=== PATIENT | male | born 1955 | race Caucasian/White ===

== ENCOUNTER 2016-09-11 16:05 | Inpatient (IN) | payer OTHER, MEDICARE ==
[~2016-09-11] VITALS: Ht 167.6 cm; Wt 151.5 kg
[~2016-09-11 16:05] MED LIST: CALCIUM CHLORIDE 10% SOLN 1 GRAM/10 ML SYR IV ONE; EPINEPHrine HCL (1:10,000) 1 MG/10 ML SYRINGE IV ONE; LACTATED RINGER'S 1000 ML INJ 3,000 ML IV ONE; PHENYLEPH/NS 1000 MCG/10 ML SYR IV ONE; SODIUM BICARBONATE 8.4% INJ 50 MEQ/50 ML SYR IV ONE; SODIUM CHLOR 0.9% 1000 ML INJ 3,000 ML IV ONE; VASOPRESSIN INJ 20 UNITS/ML VIAL IV ONE
[2016-09-11] MEDS ORDERED: PROPOFOL 1000 MG/100 ML INJ 100 ML ONE ×2 (16:18→19:12)
[2016-09-11 16:35] LABS: I-STAT SODIUM 139 MMOL/L (138-146)
[2016-09-11 16:36] LABS: BASOPHIL # 0.1 TH/MM3 (0-0.2); BASOPHIL % 0.7 % (0.0-2.0); EOSINOPHIL # 0.3 TH/MM3 (0-0.4); EOSINOPHIL % 1.9 % (0.0-4.0); HEMATOCRIT 46.1 % (39.0-51.0); HEMO FLAGS DIFF FINAL; LYMPH % 21.9 % (9.0-44.0); LYMPHOCYTE # 2.9 TH/MM3 (1.0-4.8); MEAN CELL VOLUME 95.1 FL (80.0-100.0); MEAN CORPUSCULAR HEMOGLOBIN 31.2 PG (27.0-34.0); MEAN CORPUSCULAR HGB CONC 32.8 % (32.0-36.0); MONO % 7.1 % (0.0-8.0); NEUT % 68.4 % (16.0-70.0); PLATELET COUNT 143 TH/MM3 (150-450); RED BLOOD COUNT 4.85 MIL/MM3 (4.50-5.90); WHITE BLOOD COUNT 13.2 TH/MM3 (4.0-11.0)
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
[2016-09-11 16:47] LABS: APTT (PATIENT) 23.5 SEC (24.3-30.1); INTERNATIONAL NORMALIZED RATIO 1.1 RATIO; PROTHROMBIN TIME - PATIENT 11.9 SEC (9.8-11.6)
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
[2016-09-11 17:02] VITALS: O2SAT 100
[2016-09-11 17:30] VITALS: O2SAT 100
[2016-09-11] MEDS ORDERED: TRANEXAMIC ACID INJ 1,300 MG in SODIUM CHLORIDE 0.9% INJ 100 ML IV ONE (17:45)
[2016-09-11 17:46] LABS: BLOOD GAS BASE EXCESS -7.7 mmol/L (-2-2); BLOOD GAS CARBOXYHEMOGLOBIN 4.8 % (0-4); BLOOD GAS HCO3 20 mmol/L (22-26); BLOOD GAS METHEMOGLOBIN 1.1 % (0-2); BLOOD GAS O2 HGB SATURATION 88 % (90-100); BLOOD GAS OXYGEN CONTENT 16.1 Vol % (12.0-20.0); BLOOD GAS PCO2 57 mmHg (38-42); BLOOD GAS PO2 84 mmHg (61-120); BLOOD GAS TOTAL HGB 12.9 G/DL (12.0-16.0); TEMP CORR TO 98.6
[2016-09-11 17:47] LABS: CRITICAL VALUE YES; OXYGEN DEVICE OR; VENT SETTINGS OR
[2016-09-11 18:00] LABS: BLOOD GAS BASE EXCESS -1.2 mmol/L (-2-2); BLOOD GAS CARBOXYHEMOGLOBIN 4.3 % (0-4); BLOOD GAS HCO3 26 mmol/L (22-26); BLOOD GAS O2 HGB SATURATION 93 % (90-100); BLOOD GAS OXYGEN CONTENT 16.9 Vol % (12.0-20.0); BLOOD GAS PCO2 71 mmHg (38-42); BLOOD GAS PO2 139 mmHg (61-120); BLOOD GAS TOTAL HGB 12.7 G/DL (12.0-16.0); TEMP CORR TO 98.6
[2016-09-11 18:04] LABS: OXYGEN DEVICE OR; STAT YES; ULNAR PULSE OR; VENT SETTINGS OR
[2016-09-11] MEDS ORDERED: ETOMIDATE 20 MG/10 ML VIAL ONE (18:13)
[2016-09-11] MEDS ORDERED: SUCCINYLCHOLINE CHLORIDE 200 MG/10 ML VIAL ONE (18:14)
[2016-09-11] MEDS ORDERED: ROCURONIUM INJ 50 MG/5 ML VIAL ONE (18:15)
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
[2016-09-11 18:54] LABS: AUTOMATED NEUTROPHIL # 8.7 TH/MM3 (1.8-7.7); BASOPHIL % 0.3 % (0.0-2.0); EOSINOPHIL # 0.1 TH/MM3 (0-0.4); EOSINOPHIL % 0.7 % (0.0-4.0); HEMATOCRIT 36.2 % (39.0-51.0); HEMO FLAGS DIFF FINAL; LYMPH % 6.4 % (9.0-44.0); LYMPHOCYTE # 0.7 TH/MM3 (1.0-4.8); MEAN CELL VOLUME 89.7 FL (80.0-100.0); MEAN CORPUSCULAR HEMOGLOBIN 29.7 PG (27.0-34.0); MEAN CORPUSCULAR HGB CONC 33.1 % (32.0-36.0); MONO % 7.9 % (0.0-8.0); NEUT % 84.7 % (16.0-70.0); PLATELET COUNT 136 TH/MM3 (150-450); RED BLOOD COUNT 4.03 MIL/MM3 (4.50-5.90); RED CELL DISTRIBUTION WIDTH 16.3 % (11.6-17.2); WHITE BLOOD COUNT 10.3 TH/MM3 (4.0-11.0)
[2016-09-11 19:06] LABS: INTERNATIONAL NORMALIZED RATIO 1.2 RATIO; PROTHROMBIN TIME - PATIENT 13.8 SEC (9.8-11.6)
[2016-09-11 19:27] LABS: BICARBONATE 26.4 MEQ/L (21.0-32.0); CALCIUM-PROTEIN CORRECTED 9.1 MG/DL (8.5-10.1); POTASSIUM 3.2 MEQ/L (3.5-5.1); TOTAL BILIRUBIN ADULT 0.6 MG/DL (0.2-1.0)
[2016-09-11 19:45] VITALS: BP 177/77; PULSE 126; PULSE 139; RESP 18; TEMP 99; O2SAT 100
[2016-09-11] MEDS ORDERED: SODIUM CHLORIDE 0.9% FLUSH 10 ML FLUSH IV FLUSH PRN (20:00)
[2016-09-11] MEDS ORDERED: CHLORHEXIDINE GLUCONATE 2 % 1 PACK (2 CLOTHS) TOP PRN (20:00)
[2016-09-11] MEDS ORDERED: PROPOFOL 1000 MG/100 ML INJ 100 ML IV SCH (20:00)
[2016-09-11] MEDS ORDERED: NOREPINEPHRINE-DEXTROSE DRIP 250 ML IV ONE (20:00)
[2016-09-11] MEDS ORDERED: MISCELLANEOUS NURSING INFORMATION XX SCH (20:00)
[2016-09-11] MEDS ORDERED: NOREPINEPHRINE 4 MG/4 ML AMP ONE (20:07)
[2016-09-11] MEDS ORDERED: PHENYLEPHRINE HCL 10 MG/ML VIAL ONE (20:13)
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
--- NOTE | 2016-09-11 20:41 | PD.PROCEDR ---
Procedure Note Procedure DATE: 09/11/16 CENTRAL LINE PLACEMENT: Left subclavian vein. INDICATION: Central venous access CONSENT Procedure performed emergently as patient in profound shock in need of sedation and resuscitation, in need of additional IV access. DESCRIPTION OF THE PROCEDURE The patient was placed in supine position, mild Trendelenburg. Full spine precautions were maintained. In-line cervical stabilization performed by medical assistant dermatology. The skin was cleansed with Chloraprep 4. Additional barrier precautions included large sterile drape, sterile gloves, sterile gown, face mask, and hat. 1 % lidocaine was used for local anesthesia. Under direct ultrasound guidance and on single attempt, the vein was accessed with an introducer needle. The guide wire was advanced and the tract was dilated. Using Seldinger technique a 7 Mongolian 20 cm antimicrobial coated triple-lumen catheter was advanced to a depth of 18 centimeters. The guide wire was removed. All ports had good return of dark venous blood and flushed easily with saline. The central line was secured with 2.0 silk. A sterile dressing with antibiotic disc was applied. ESTIMATED BLOOD LOSS: Minimal COMPLICATIONS: No apparent complications. STAT chest x-ray demonstrated satisfactory position without apparent complication. Malissa Bee MD Sep 11, 2016 20:41
[2016-09-11] MEDS ORDERED: POTASSIUM CHLORIDE INJ 40 MEQ in SODIUM CHLORID 0.9% 500 ML INJ 500 ML IV-CENTRAL ONE (20:45)
[2016-09-11] MEDS ORDERED: MISC INFORMATION XX ONE (20:45)
[2016-09-11] MEDS ORDERED: INSULIN REGULAR (IV INFUSION) 100 UNITS in SODIUM CHLORIDE 0.9% INJ 99 ML IV SCH (20:45)
[2016-09-11] MEDS ORDERED: TERBUTALINE INJ 1 MG/ML AMP SQ PRN (20:45)
[2016-09-11] MEDS ORDERED: CALCIUM CHLORIDE INJ 1 GM in SODIUM CHLORIDE 0.9% INJ 100 ML IV ONE (20:45)
[2016-09-11] MEDS ORDERED: DEXTROSE 50% IN WATER 50 ML VIAL(D50) IV PUSH PRN (20:45)
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
--- NOTE | 2016-09-11 20:49 | RADRPT ---
EXAM DATE/TIME: 09/11/2016 20:39 [facility] COMPARISON: No previous studies available for comparison. INDICATIONS : Central line placement and pneumothorax. MEDICAL HISTORY : None. SURGICAL HISTORY : None. ENCOUNTER: Subsequent ACUITY: 1 day PAIN SCORE: Non-responsive. LOCATION: Bilateral chest FINDINGS: Multiple left rib fractures present. Left chest tube in place. No measurable pneumothorax. There is l eft chest wall emphysema. Mild, patchy consolidation and/or contusion of the left lung. Right lung reasonably clear. No large p leural effusion/hemothorax seen. There is a nasogastric tube coursing into the stomach. There is an endotracheal tube with tip 4 cm ab ove the robin. CONCLUSION: 1. Lines and tubes as above, including a left chest tube. No measurable pneumothorax. 2. Mild patchy left lung consolidation. No significant hemothorax demonstrated. 3. Left chest wall emphysema. 4. Left rib fractures. Antonio Robbins MD on September 11, 2016 at 20:46 Board Certified Radiologist. This report was verified electronically.
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
[2016-09-11] MEDS ORDERED: SODIUM CHLOR 0.9% 250 ML INJ 250 ML IV ONE (21:30)
[2016-09-11 21:43] LABS: BLOOD GAS BASE EXCESS -0.1 mmol/L (-2-2); BLOOD GAS CARBOXYHEMOGLOBIN 2.2 % (0-4); BLOOD GAS HCO3 26 mmol/L (22-26); BLOOD GAS O2 HGB SATURATION 95 % (90-100); BLOOD GAS OXYGEN CONTENT 16.1 Vol % (12.0-20.0); BLOOD GAS PCO2 59 mmHg (38-42); BLOOD GAS PO2 104 mmHg (61-120); TEMP CORR TO 98.6
[2016-09-11 21:44] LABS: OXYGEN DEVICE VENTILATOR
[2016-09-11] MEDS ORDERED: PHENYLEPHRINE INJ 40 MG in DEXTROSE 5% IN WATE 500 ML INJ 496 ML IV SCH ×2 (21:45)
[2016-09-11 21:48] LABS: FIO2 75 %; STAT YES; VENT SETTINGS 500/18 5PEEP
[2016-09-11 21:53] LABS: BASOPHIL % 0.3 % (0.0-2.0); EOSINOPHIL % 0.1 % (0.0-4.0); HEMATOCRIT 36.4 % (39.0-51.0); HEMO FLAGS DIFF FINAL; LYMPH % 7.2 % (9.0-44.0); LYMPHOCYTE # 1.2 TH/MM3 (1.0-4.8); MEAN CELL VOLUME 88.2 FL (80.0-100.0); MONO % 9.9 % (0.0-8.0); NEUT % 82.5 % (16.0-70.0); PLATELET COUNT 124 TH/MM3 (150-450); RED BLOOD COUNT 4.12 MIL/MM3 (4.50-5.90); RED CELL DISTRIBUTION WIDTH 15.9 % (11.6-17.2)
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
[2016-09-11 22:08] VITALS: O2SAT 98
[2016-09-11 22:42] LABS: APTT (PATIENT) 29.9 SEC (24.3-30.1); INTERNATIONAL NORMALIZED RATIO 1.1 RATIO; PROTHROMBIN TIME - PATIENT 12.6 SEC (9.8-11.6)
[2016-09-11] MEDS: SODIUM CHLOR 0.9% 1000 ML INJ 1,000 ML IV SCH (22:55)
[2016-09-11] MEDS: FAMOTIDINE 20 MG/2 ML VIAL IV PUSH SCH (22:57)
[2016-09-11] MEDS: SODIUM CHLORIDE 0.9% FLUSH 10 ML FLUSH IV FLUSH SCH (22:57)
[2016-09-11] MEDS: PROPOFOL 1000 MG/100 ML INJ 100 ML IV SCH (22:58)
[2016-09-11] MEDS: fentaNYL DRIP 250 ML IV SCH (22:59)
[2016-09-12] VITALS (17 sets, daily range): BP systolic 118–151; BP diastolic 44–56; PULSE 101–112; RESP 18; TEMP 97.9–99.9; O2SAT 93–100
[2016-09-12] MEDS: PROPOFOL 1000 MG/100 ML INJ 100 ML IV SCH ×8 (00:18→22:37)
[2016-09-12] MEDS: NOREPINEPHRINE INJ 4 MG in SODIUM CHLOR 0.9% 250 ML INJ 246 ML IV SCH (01:05)
[2016-09-12] MEDS: PIPERACIL-TAZO 3.375 GM PREMIX 50 ML IV SCH ×5 (01:08→21:10)
[2016-09-12] MEDS: SODIUM CHLOR 0.9% 1000 ML INJ 1,000 ML IV SCH (02:45)
[2016-09-12] MEDS: CHLORHEXIDINE GLUCONATE 2 % 1 PACK (2 CLOTHS) TOP SCH (03:18)
[2016-09-12 04:31] LABS: PROTHROMBIN TIME - PATIENT 11.6 SEC (9.8-11.6)
[2016-09-12 04:33] LABS: AUTOMATED NEUTROPHIL # 7.4 TH/MM3 (1.8-7.7); BASOPHIL % 0.1 % (0.0-2.0); EOSINOPHIL % 0.1 % (0.0-4.0); HEMATOCRIT 27.9 % (39.0-51.0); HEMO FLAGS DIFF FINAL; LYMPH % 11.2 % (9.0-44.0); LYMPHOCYTE # 1.1 TH/MM3 (1.0-4.8); MEAN CELL VOLUME 86.7 FL (80.0-100.0); MEAN CORPUSCULAR HEMOGLOBIN 30.7 PG (27.0-34.0); MEAN CORPUSCULAR HGB CONC 35.4 % (32.0-36.0); MONO % 10.3 % (0.0-8.0); NEUT % 78.3 % (16.0-70.0); PLATELET COUNT 172 TH/MM3 (150-450); RED BLOOD COUNT 3.21 MIL/MM3 (4.50-5.90); RED CELL DISTRIBUTION WIDTH 16.1 % (11.6-17.2); WHITE BLOOD COUNT 9.5 TH/MM3 (4.0-11.0)
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
[2016-09-12] MEDS: fentaNYL DRIP 250 ML IV SCH ×2 (05:01→14:06)
[2016-09-12 06:01] LABS: BICARBONATE 29.7 MEQ/L (21.0-32.0); POTASSIUM 4.5 MEQ/L (3.5-5.1)
[2016-09-12] MEDS ORDERED: IOHEXOL 350 MG/ML 10 ML VIAL (for RAD DIAG) IV ONE (07:31)
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
[2016-09-12] MEDS ORDERED: POTASSIUM CHLORIDE 25 MEQ EFFERVESCENT TAB PO PRN (07:45)
[2016-09-12] MEDS ORDERED: POTASSIUM PHOSPHATE MONOBASIC 500 MG TAB PO PRN (07:45)
[2016-09-12] MEDS ORDERED: POTASSIUM PHOSPHATE MONOBASIC 500 MG TAB PO/TUBE PRN (07:45)
[2016-09-12] MEDS ORDERED: POTASSIUM PHOSPHATE INJ 30 MMOL in SODIUM CHLOR 0.9% 250 ML INJ 250 ML IV PRN (07:45)
[2016-09-12] MEDS ORDERED: MAGNESIUM SULFATE INJ 2 GM in SODIUM CHLORIDE 0.9% INJ 96 ML IV PRN (07:45)
[2016-09-12] MEDS ORDERED: POTASSIUM CHLOR 40 MEQ PREMIX 100 ML IV PRN (07:45)
[2016-09-12] MEDS ORDERED: MAGNESIUM SULFATE INJ 4 GM in SODIUM CHLORIDE 0.9% INJ 92 ML IV PRN (07:45)
[2016-09-12] MEDS ORDERED: SODIUM PHOSPHATE INJ 30 MMOL in SODIUM CHLOR 0.9% 250 ML INJ 240 ML IV PRN (07:45)
[2016-09-12] MEDS ORDERED: MAGNESIUM OXIDE 400 MG TAB PO PRN (07:45)
[2016-09-12] MEDS ORDERED: POTASSIUM CHLOR 20 MEQ PREMIX 100 ML IV PRN ×2 (07:45)
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
[2016-09-12] MEDS: SODIUM CHLORIDE 0.9% FLUSH 10 ML FLUSH IV FLUSH SCH ×2 (08:11→20:22)
[2016-09-12] MEDS: CHLORHEXIDINE 0.12% (ORAL KIT) 15 ML CUP MT SCH ×2 (08:11→20:22)
[2016-09-12] MEDS: FAMOTIDINE 20 MG/2 ML VIAL IV PUSH SCH ×2 (08:11→20:23)
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
[2016-09-12] MEDS ORDERED: RESP: ALBUTEROL 2.5 MG/3 ML NEB (PRN) NEB (08:45)
[2016-09-12] MEDS: RESP: ALBUTEROL 2.5 MG/IPRATROPIUM 0.5 MG NEB (SCH) NEB ×3 (09:27→21:11)
[2016-09-12] MEDS ORDERED: METH750T PO (09:45)
[2016-09-12] MEDS ORDERED: AMLO10TA2 PO (09:45)
[2016-09-12] MEDS ORDERED: PANT40TA3 PO (09:45)
[2016-09-12] MEDS ORDERED: METO25TA3 PO (09:45)
[2016-09-12] MEDS ORDERED: HYDR-3583 PO (09:45)
[2016-09-12] MEDS ORDERED: LURA40 PO (09:45)
[2016-09-12] MEDS ORDERED: ENAL20TA PO (09:45)
[2016-09-12] MEDS ORDERED: FURO20TA PO (09:45)
[2016-09-12 09:55] LABS: BLOOD, URINE NEG (NEG); GLUCOSE,URINE 300 mg/dL (NEG); KETONE, URINE NEG (NEG); MUCUS URINE FEW /lpf (OCC); NITRITE,URINE NEG (NEG); PH, URINE 5.5 (5.0-8.5); SQUAMOUS EPITHELIAL CELL URINE <1 /hpf (0-5); URINE COLOR YELLOW (YELLW/STRAW)
[2016-09-12 09:56] LABS: COMMENT (UR) CATH-CULT NOT IND; CULTURE IF INDICATED CATH CULTURE NOT IND
[2016-09-12 11:41] LABS: BLOOD GAS BASE EXCESS 2.9 mmol/L (-2-2); BLOOD GAS CARBOXYHEMOGLOBIN 1.2 % (0-4); BLOOD GAS HCO3 28 mmol/L (22-26); BLOOD GAS METHEMOGLOBIN 0.8 % (0-2); BLOOD GAS O2 HGB SATURATION 92 % (90-100); BLOOD GAS OXYGEN CONTENT 19.7 Vol % (12.0-20.0); BLOOD GAS PCO2 46 mmHg (38-42); BLOOD GAS PO2 67 mmHg (61-120); BLOOD GAS TOTAL HGB 15.3 G/DL (12.0-16.0); TEMP CORR TO 98.6
[2016-09-12] MEDS: LACTATED RINGER'S 1000 ML INJ 1,000 ML IV SCH ×2 (11:41→20:22)
[2016-09-12 11:42] LABS: CRITICAL VALUE NO; OXYGEN DEVICE VENTILATOR; VENT SETTINGS SEE COMMENTS
[2016-09-12 11:43] LABS: DRAW SITE ART LINE; FIO2 60 %; STAT NO
[2016-09-12] MEDS ORDERED: INSULIN REGULAR 100 UNITS/100 ML NS ALGORITHM 3 IV SCH ×2 (11:45)
[2016-09-12] MEDS ORDERED: MISC INFORMATION OTHER ONE ×2 (12:00→18:00)
[2016-09-12] MEDS ORDERED: DEXTROSE 50% IN WATER 50 ML VIAL(D50) IV PUSH PRN ×2 (12:00→18:00)
--- NOTE | 2016-09-12 12:36 | EC ---
Study Study Date:09/12/2016 STUDY CONCLUSIONS SUMMARY - Left ventricle: The cavity size was normal. Wall thickness was normal. Systolic function was hyperdynamic. The estimated ejection fraction was in the range of 65% to 70%. Wall motion was normal; there were no regional wall motion abnormalities. - Mitral valve: Calcified annulus. - Pericardium, extracardiac: A trivial pericardial effusion was identified circumferential to the heart. If LV function is below 40, please consider prescribing an ACEI or ARB or document rationale for non-use. PROCEDURE DATA STUDY STATUS: Elective. Procedure: Transthoracic echocardiography. Image quality was good. Scanning was performed from the parasternal, apical, and subcostal acoustic windows. Study completion: The patient tolerated the procedure well. Transthoracic echocardiography. M-mode, complete 2D, complete spectral Doppler, and color Doppler. Patient status: Inpatient. CARDIAC ANATOMY LEFT VENTRICLE: The cavity size was normal. Wall thickness was normal. Systolic function was hyperdynamic. The estimated ejection fraction was in the range of 65% to 70%. Wall motion was normal; there were no regional wall motion abnormalities. AORTIC VALVE: Trileaflet; normal thickness leaflets. Doppler: Transvalvular velocity was within the normal range. There was no stenosis. No regurgitation. AORTA: Aortic root: The aortic root was normal in size. MITRAL VALVE: Calcified annulus. Doppler: Transvalvular velocity was within the normal range. There was no evidence for stenosis. No regurgitation. Valve area by pressure half-time: 4.89cm^2. Mean gradient: 4mm Hg (D). Peak gradient: 14mm Hg (D). LEFT ATRIUM: The atrium was normal in size. RIGHT VENTRICLE: The cavity size was normal. Wall thickness was normal. PULMONIC VALVE: Doppler: Transvalvular velocity was within the normal range. There was no evidence for stenosis. No regurgitation. TRICUSPID VALVE: Structurally normal valve. Doppler: Transvalvular velocity was within the normal range. No regurgitation. PULMONARY ARTERY: The main pulmonary artery was normal-sized. Systolic pressure was within the normal range. RIGHT ATRIUM: The atrium was normal in size. PERICARDIUM: A trivial pericardial effusion was identified circumferential to the heart. SYSTEMIC VEINS: Inferior vena cava: The vessel was normal in size. BASIC MEASUREMENTS ADULT Normal Left ventricle LV internal dimension, ED, chordal level, *38.4 mm 43-52 PLAX LV internal dimension, ES, chordal level, 26.2 mm 23-38 PLAX Fractional shortening, chordal level, PLAX 32 % >29 LV posterior wall thickness, ED 7.09 mm IVS/LVPW ratio, ED 1.21 <1.3 Ventricular septum Septal thickness, ED 8.6 mm Left atrium Anterior-posterior dimension 35 mm Right ventricle RV internal dimension, ED, PLAX 23.7 mm 19-38 DOPPLER MEASUREMENTS ADULT Normal Main pulmonary artery Pressure, S 29 mm Hg =30 Aortic valve VTI, S 38.5 cm Mitral valve Peak E-wave velocity 140 cm/s Peak A-wave velocity 76.4 cm/s Mean velocity, D 84.9 cm/s Pressure half-time 45 ms Mean gradient, D 4 mm Hg Peak gradient, D 14 mm Hg Peak E/A ratio 1.8 Valve area, pressure half-time 4.89 cm^2 Tricuspid valve Regurgitant peak velocity 247 cm/s Peak RV-RA gradient, S 24 mm Hg Maximal regurgitant velocity 247 cm/s Systemic veins Estimated CVP 5 mm Hg Right ventricle RV pressure, S 29 mm Hg <30 LEGEND: Mean values are shown as u=mean value. Asterisk (*) torres values outside specified normal range. Prepared and signed by Gilbert Sanchez [id number]
[2016-09-12] MEDS: BACITRACIN TOP OINT 15 GM TUBE TOPICAL SCH ×2 (13:29→20:23)
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
[2016-09-12 14:02] LABS: HEMATOCRIT 28.3 % (39.0-51.0); MEAN CELL VOLUME 86.7 FL (80.0-100.0); MEAN CORPUSCULAR HGB CONC 34.6 % (32.0-36.0); PLATELET COUNT 165 TH/MM3 (150-450); RED BLOOD COUNT 3.26 MIL/MM3 (4.50-5.90); RED CELL DISTRIBUTION WIDTH 16.2 % (11.6-17.2); REVIEW FLAG FINAL; WHITE BLOOD COUNT 15.2 TH/MM3 (4.0-11.0)
[2016-09-12 14:22] LABS: APTT (PATIENT) 28.4 SEC (24.3-30.1); INTERNATIONAL NORMALIZED RATIO 1.1 RATIO; PROTHROMBIN TIME - PATIENT 11.8 SEC (9.8-11.6)
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
[2016-09-13] VITALS (14 sets, daily range): BP systolic 99–159; BP diastolic 46–86; PULSE 108–128; RESP 14–18; TEMP 98.3–100.9; O2SAT 93–100
[2016-09-13] MEDS: PROPOFOL 1000 MG/100 ML INJ 100 ML IV SCH ×5 (00:57→23:44)
[2016-09-13] MEDS: fentaNYL DRIP 250 ML IV SCH ×3 (00:57→19:26)
[2016-09-13] MEDS: LACTATED RINGER'S 1000 ML INJ 1,000 ML IV SCH ×3 (03:08→20:06)
[2016-09-13] MEDS: CHLORHEXIDINE GLUCONATE 2 % 1 PACK (2 CLOTHS) TOP SCH (03:08)
[2016-09-13] MEDS: PIPERACIL-TAZO 3.375 GM PREMIX 50 ML IV SCH ×4 (03:08→21:16)
[2016-09-13] MEDS: RESP: ALBUTEROL 2.5 MG/IPRATROPIUM 0.5 MG NEB (SCH) NEB ×4 (03:31→20:14)
[2016-09-13 04:49] LABS: BASOPHIL % 0.2 % (0.0-2.0); EOSINOPHIL # 0.2 TH/MM3 (0-0.4); HEMATOCRIT 28.3 % (39.0-51.0); LYMPH % 10.2 % (9.0-44.0); MEAN CELL VOLUME 87.9 FL (80.0-100.0); MEAN CORPUSCULAR HEMOGLOBIN 29.6 PG (27.0-34.0); MEAN CORPUSCULAR HGB CONC 33.7 % (32.0-36.0); MONO % 11.4 % (0.0-8.0); NEUT % 77.2 % (16.0-70.0); PLATELET COUNT 158 TH/MM3 (150-450); RED BLOOD COUNT 3.22 MIL/MM3 (4.50-5.90); WHITE BLOOD COUNT 19.4 TH/MM3 (4.0-11.0)
[2016-09-13 04:54] LABS: HEMO FLAGS AUTO DIFF
[2016-09-13 05:07] LABS: ALKALINE PHOSPHATASE 95 U/L (45-117); ALT (GPT) 51 U/L (12-78); ANION GAP 6 MEQ/L (5-15); AST (GOT) 86 U/L (15-37); BICARBONATE 31.1 MEQ/L (21.0-32.0); BLOOD UREA NITROGEN 21 MG/DL (7-18); CHLORIDE 108 MEQ/L (98-107); GLOMERULAR FILTRATION RATE 82 ML/MIN (>89); MAGNESIUM 1.7 MG/DL (1.5-2.5); POTASSIUM 3.9 MEQ/L (3.5-5.1); SODIUM (NA) 145 MEQ/L (136-145); TOTAL BILIRUBIN ADULT 0.9 MG/DL (0.2-1.0)
[2016-09-13 05:12] LABS: BLOOD GAS BASE EXCESS 5.8 mmol/L (-2-2); BLOOD GAS CARBOXYHEMOGLOBIN 1.4 % (0-4); BLOOD GAS HCO3 30 mmol/L (22-26); BLOOD GAS METHEMOGLOBIN 0.9 % (0-2); BLOOD GAS O2 HGB SATURATION 90 % (90-100); BLOOD GAS OXYGEN CONTENT 12.6 Vol % (12.0-20.0); BLOOD GAS PCO2 46 mmHg (38-42); BLOOD GAS PO2 62 mmHg (61-120); BLOOD GAS TOTAL HGB 9.9 G/DL (12.0-16.0); CRITICAL VALUE NO; OXYGEN DEVICE VENTILATOR; TEMP CORR TO 98.6
[2016-09-13 05:13] LABS: DRAW SITE ART LINE; FIO2 50 %; STAT NO; VENT SETTINGS PRVC/AC
[2016-09-13 06:48] LABS: BANDS 40 % (0-6); EOSINOPHILS 1 % (0-4); METAMYELOCYTES 2 % (0-1); NEUTROPHIL # MANUAL DIFF 17.1 TH/MM3 (1.8-7.7); POLYS (SEG NEUTROPHILS) 46 % (16-70); WBC DIFF SAMPLE 100
[2016-09-13 06:49] LABS: PLATELET ESTIMATE SMEAR NORMAL (NORMAL); PLATELET MORPHOLOGY NORMAL (NORMAL); SCAN/DIFF FINAL DIFF MANUAL
--- NOTE | 2016-09-13 06:58 | RADRPT ---
EXAM DATE/TIME: 09/13/2016 05:44 [place] COMPARISON: CHEST SINGLE AP, September 12, 2016, 4:02. INDICATIONS : Shortness of breath. MEDICAL HISTORY : None. SURGICAL HISTORY : None. ENCOUNTER: Subsequent ACUITY: 3 days PAIN SCORE: Non-responsive. LOCATION: chest FINDINGS: The left chest remains in place. There is a persistent 9 mm left apical pneumothorax. There continues to be scattered infiltrates bilaterally. These findings are stable. The endotracheal tube, NG tube a nd left central line are stable. No new or significant changes. CONCLUSION: Stable persistent 9 mm left apical pneumothorax. Christiano Trotter MD on September 13, 2016 at 6:56 Board Certified Radiologist. This report was verified electronically.
[2016-09-13] MEDS ORDERED: PROPOFOL 200 MG/20 ML AMP IV ONE (08:28)
[2016-09-13] MEDS: SODIUM CHLORIDE 0.9% FLUSH 10 ML FLUSH IV FLUSH SCH ×2 (09:00→20:07)
[2016-09-13] MEDS: BACITRACIN TOP OINT 15 GM TUBE TOPICAL SCH ×2 (09:44→20:08)
[2016-09-13] MEDS: CHLORHEXIDINE 0.12% (ORAL KIT) 15 ML CUP MT SCH ×2 (09:44→20:07)
[2016-09-13] MEDS: FAMOTIDINE 20 MG/2 ML VIAL IV PUSH SCH ×2 (09:45→20:08)
[2016-09-13] MEDS ORDERED: MIDAZOLAM HCL 5 MG/5 ML VIAL ONE (11:14)
[2016-09-13] MEDS ORDERED: fentaNYL CITRATE 250 MCG/5 ML AMP ONE (11:15)
[2016-09-13] MEDS ORDERED: FAMOTIDINE 20 MG/2 ML VIAL ONE (11:15)
[2016-09-13] MEDS: INSULIN REGULAR 100 UNITS/100 ML NS ALGORITHM 4 IV SCH ×2 (11:23)
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
--- NOTE | 2016-09-13 12:43 | OTSOAPIP ---
RECEIVED OCCUPATIONAL THERAPY ORDERS FROM CHAPIS MCCLOUD. PATIENT IS CURRENTLY OFF FLOOR FOR SURGERY, UNABLE TO INITIATE EVALUATION. WILL FOLLOW UP WITH PATIENT NEXT DAY. INTERDISCIPLINARY COMMUNICATION: REVIEWED ELECTRONIC MEDICAL RECORD Therapist: Heather Sanz OTR/L Signature on file
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
[2016-09-13 16:56] LABS: BLOOD GAS BASE EXCESS 2.3 mmol/L (-2-2); BLOOD GAS CARBOXYHEMOGLOBIN 1.1 % (0-4); BLOOD GAS HCO3 27 mmol/L (22-26); BLOOD GAS METHEMOGLOBIN 0.9 % (0-2); BLOOD GAS O2 HGB SATURATION 93 % (90-100); BLOOD GAS PCO2 49 mmHg (38-42); BLOOD GAS PO2 77 mmHg (61-120); BLOOD GAS TOTAL HGB 10.6 G/DL (12.0-16.0); CRITICAL VALUE NO; OXYGEN DEVICE VENTILATOR; TEMP CORR TO 98.6
[2016-09-13 16:59] LABS: DRAW SITE ART LINE; FIO2 60 %; STAT NO
[2016-09-13 17:04] LABS: VENT SETTINGS SEE COMMENTS
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
[2016-09-13 19:56] LABS: BLOOD GAS BASE EXCESS 1.3 mmol/L (-2-2); BLOOD GAS CARBOXYHEMOGLOBIN 1.1 % (0-4); BLOOD GAS HCO3 26 mmol/L (22-26); BLOOD GAS METHEMOGLOBIN 0.9 % (0-2); BLOOD GAS O2 HGB SATURATION 96 % (90-100); BLOOD GAS OXYGEN CONTENT 13.8 Vol % (12.0-20.0); BLOOD GAS PCO2 50 mmHg (38-42); BLOOD GAS PO2 105 mmHg (61-120); BLOOD GAS TOTAL HGB 10.1 G/DL (12.0-16.0); TEMP CORR TO 98.6
[2016-09-13 19:57] LABS: CRITICAL VALUE NO; DRAW SITE ALINE; FIO2 60 %; OXYGEN DEVICE VENTILATOR; VENT SETTINGS BILEVEL
[2016-09-13 19:58] LABS: STAT NO; ULNAR PULSE PRESENT
[2016-09-13] MEDS: ENOXAPARIN SODIUM 30 MG/0.3 ML SYRINGE SQ SCH (20:07)
[2016-09-14] VITALS (18 sets, daily range): BP systolic 104–156; BP diastolic 51–62; PULSE 104–119; RESP 11–17; TEMP 98.1–100.8; O2SAT 98–100
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
[2016-09-14] MEDS: INSULIN REGULAR 100 UNITS/100 ML NS ALGORITHM 4 IV SCH ×4 (01:03→11:59)
[2016-09-14] MEDS: NOREPINEPHRINE INJ 4 MG in SODIUM CHLOR 0.9% 250 ML INJ 246 ML IV SCH ×2 (01:40→05:22)
[2016-09-14 01:59] LABS: BLOOD GAS BASE EXCESS 2.3 mmol/L (-2-2); BLOOD GAS CARBOXYHEMOGLOBIN 1.1 % (0-4); BLOOD GAS HCO3 28 mmol/L (22-26); BLOOD GAS O2 HGB SATURATION 96 % (90-100); BLOOD GAS OXYGEN CONTENT 14.1 Vol % (12.0-20.0); BLOOD GAS PCO2 52 mmHg (38-42); BLOOD GAS PO2 118 mmHg (61-120); BLOOD GAS TOTAL HGB 10.3 G/DL (12.0-16.0); TEMP CORR TO 98.6
[2016-09-14 02:02] LABS: CRITICAL VALUE YES; OXYGEN DEVICE VENTILATOR
[2016-09-14 02:04] LABS: DRAW SITE ART LINE; FIO2 60 %; STAT NO; VENT SETTINGS BILEVEL
[2016-09-14] MEDS: PROPOFOL 1000 MG/100 ML INJ 100 ML IV SCH ×5 (02:28→21:11)
[2016-09-14] MEDS: PIPERACIL-TAZO 3.375 GM PREMIX 50 ML IV SCH ×4 (03:18→21:11)
[2016-09-14] MEDS: RESP: ALBUTEROL 2.5 MG/IPRATROPIUM 0.5 MG NEB (SCH) NEB ×4 (03:37→19:56)
[2016-09-14] MEDS: CHLORHEXIDINE GLUCONATE 2 % 1 PACK (2 CLOTHS) TOP SCH (03:43)
[2016-09-14] MEDS: LACTATED RINGER'S 1000 ML INJ 1,000 ML IV SCH ×3 (03:43→21:10)
[2016-09-14 05:12] LABS: AUTOMATED NEUTROPHIL # 14.2 TH/MM3 (1.8-7.7); BASOPHIL # 0.1 TH/MM3 (0-0.2); BASOPHIL % 0.5 % (0.0-2.0); EOSINOPHIL # 0.2 TH/MM3 (0-0.4); EOSINOPHIL % 1.3 % (0.0-4.0); HEMATOCRIT 30.3 % (39.0-51.0); LYMPHOCYTE # 1.5 TH/MM3 (1.0-4.8); MEAN CELL VOLUME 90.2 FL (80.0-100.0); MEAN CORPUSCULAR HEMOGLOBIN 29.5 PG (27.0-34.0); MEAN CORPUSCULAR HGB CONC 32.7 % (32.0-36.0); MONO % 12.3 % (0.0-8.0); NEUT % 77.9 % (16.0-70.0); PLATELET COUNT 192 TH/MM3 (150-450); RED BLOOD COUNT 3.36 MIL/MM3 (4.50-5.90); RED CELL DISTRIBUTION WIDTH 16.4 % (11.6-17.2); WHITE BLOOD COUNT 18.2 TH/MM3 (4.0-11.0)
[2016-09-14 05:14] LABS: HEMO FLAGS AUTO DIFF
[2016-09-14] MEDS: fentaNYL DRIP 250 ML IV SCH ×2 (05:23→15:36)
[2016-09-14 05:47] LABS: BLOOD GAS BASE EXCESS 1.3 mmol/L (-2-2); BLOOD GAS CARBOXYHEMOGLOBIN 1.1 % (0-4); BLOOD GAS HCO3 27 mmol/L (22-26); BLOOD GAS METHEMOGLOBIN 0.8 % (0-2); BLOOD GAS O2 HGB SATURATION 96 % (90-100); BLOOD GAS OXYGEN CONTENT 14.1 Vol % (12.0-20.0); BLOOD GAS PCO2 52 mmHg (38-42); BLOOD GAS PO2 114 mmHg (61-120); BLOOD GAS TOTAL HGB 10.2 G/DL (12.0-16.0); TEMP CORR TO 98.6
[2016-09-14 05:51] LABS: CRITICAL VALUE YES; OXYGEN DEVICE VENTILATOR
[2016-09-14 05:53] LABS: FIO2 60 %; VENT SETTINGS BILEVEL
[2016-09-14 05:55] LABS: DRAW SITE ART LINE; STAT NO
--- NOTE | 2016-09-14 06:27 | RADRPT ---
EXAM DATE/TIME: 09/14/2016 04:44 [facility] COMPARISON: CHEST SINGLE AP, September 13, 2016, 5:44. INDICATIONS : Shortness of breath, possible pulmonary disease. MEDICAL HISTORY : None. SURGICAL HISTORY : None. ENCOUNTER: Subsequent ACUITY: 4 - 6 days PAIN SCORE: Non-responsive. LOCATION: Bilateral chest FINDINGS: The cardiac silhouette is enlarged in transverse diameter. A left chest tube is in place. There is no evidence of pneumothorax. Subcutaneous emphysema is present. There is left lower lobe atelectasis ve rsus pneumonia. CONCLUSION: 1. Cardiomegaly. 2. There is no evidence of pneumothorax. Thomas Morton MD on September 14, 2016 at 6:25 Board Certified Radiologist. This report was verified electronically.
[2016-09-14 06:31] LABS: ALKALINE PHOSPHATASE 74 U/L (45-117); ALT (GPT) 53 U/L (12-78); ANION GAP 8 MEQ/L (5-15); AST (GOT) 58 U/L (15-37); BICARBONATE 28.9 MEQ/L (21.0-32.0); BLOOD UREA NITROGEN 34 MG/DL (7-18); CHLORIDE 107 MEQ/L (98-107); GLOMERULAR FILTRATION RATE 47 ML/MIN (>89); MAGNESIUM 2.2 MG/DL (1.5-2.5); POTASSIUM 4.2 MEQ/L (3.5-5.1); SODIUM (NA) 144 MEQ/L (136-145); TOTAL BILIRUBIN ADULT 0.8 MG/DL (0.2-1.0)
[2016-09-14 07:23] LABS: BANDS 3 % (0-6); METAMYELOCYTES 1 % (0-1); MYELOCYTES 1 % (0-0); NEUTROPHIL # MANUAL DIFF 15.5 TH/MM3 (1.8-7.7); PLATELET ESTIMATE SMEAR NORMAL (NORMAL); PLATELET MORPHOLOGY NORMAL (NORMAL); POLYS (SEG NEUTROPHILS) 80 % (16-70); SCAN/DIFF FINAL DIFF MANUAL; WBC DIFF SAMPLE 100
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
[2016-09-14 08:14] LABS: BLOOD GAS BASE EXCESS 0.3 mmol/L (-2-2); BLOOD GAS CARBOXYHEMOGLOBIN 1.1 % (0-4); BLOOD GAS HCO3 26 mmol/L (22-26); BLOOD GAS METHEMOGLOBIN 0.8 % (0-2); BLOOD GAS O2 HGB SATURATION 97 % (90-100); BLOOD GAS OXYGEN CONTENT 14.1 Vol % (12.0-20.0); BLOOD GAS PCO2 50 mmHg (38-42); BLOOD GAS PO2 136 mmHg (61-120); BLOOD GAS TOTAL HGB 10.1 G/DL (12.0-16.0); CRITICAL VALUE NO; DRAW SITE ART LINE; FIO2 50 %; OXYGEN DEVICE VENTILATOR; STAT NO; TEMP CORR TO 98.6; VENT SETTINGS SEE COMMENTS
[2016-09-14] MEDS ORDERED: ALBUMIN HUMAN 5% 25 GM/500 ML BOTTLE IV ONE (08:45)
[2016-09-14] MEDS: SODIUM CHLORIDE 0.9% FLUSH 10 ML FLUSH IV FLUSH SCH ×2 (08:57→21:10)
[2016-09-14] MEDS: FAMOTIDINE 20 MG/2 ML VIAL IV PUSH SCH ×2 (08:57→21:11)
[2016-09-14] MEDS: BACITRACIN TOP OINT 15 GM TUBE TOPICAL SCH ×2 (08:58→21:11)
[2016-09-14] MEDS: ENOXAPARIN SODIUM 30 MG/0.3 ML SYRINGE SQ SCH ×2 (08:58→21:11)
[2016-09-14] MEDS: CHLORHEXIDINE 0.12% (ORAL KIT) 15 ML CUP MT SCH ×2 (08:58→21:10)
--- NOTE | 2016-09-14 12:03 | HHI.NSPN ---
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 closely urine output, BUN and creatinine Continue Protonix for stress ulcer prophylaxis Continue Xavier hose and SCD's for DVT prophylaxis. Bernard Chiang MD Sep 14, 2016 12:03
[2016-09-14 14:24] LABS: BLOOD GAS BASE EXCESS 2.4 mmol/L (-2-2); BLOOD GAS CARBOXYHEMOGLOBIN 1.2 % (0-4); BLOOD GAS HCO3 28 mmol/L (22-26); BLOOD GAS METHEMOGLOBIN 0.9 % (0-2); BLOOD GAS O2 HGB SATURATION 97 % (90-100); BLOOD GAS OXYGEN CONTENT 12.9 Vol % (12.0-20.0); BLOOD GAS PCO2 51 mmHg (38-42); BLOOD GAS PO2 150 mmHg (61-120); BLOOD GAS TOTAL HGB 9.2 G/DL (12.0-16.0); CRITICAL VALUE YES; DRAW SITE ART LINE; FIO2 60 %; OXYGEN DEVICE VENTILATOR; STAT NO; TEMP CORR TO 98.6; VENT SETTINGS SEE COMMENTS
[2016-09-14] MEDS ORDERED: LACTATED RINGER'S 1000 ML INJ 1,000 ML IV ONE (17:00)
[2016-09-14 20:08] LABS: BLOOD GAS BASE EXCESS 2.1 mmol/L (-2-2); BLOOD GAS CARBOXYHEMOGLOBIN 1.4 % (0-4); BLOOD GAS HCO3 27 mmol/L (22-26); BLOOD GAS METHEMOGLOBIN 0.9 % (0-2); BLOOD GAS O2 HGB SATURATION 97 % (90-100); BLOOD GAS OXYGEN CONTENT 13.4 Vol % (12.0-20.0); BLOOD GAS PCO2 49 mmHg (38-42); BLOOD GAS PO2 132 mmHg (61-120); BLOOD GAS TOTAL HGB 9.7 G/DL (12.0-16.0); CRITICAL VALUE NO; OXYGEN DEVICE VENTILATOR; TEMP CORR TO 98.6
[2016-09-14 20:09] LABS: DRAW SITE ART LINE; FIO2 50 %; STAT NO; VENT SETTINGS APRV
[2016-09-15] VITALS (21 sets, daily range): BP systolic 107–122; BP diastolic 46–64; PULSE 82–118; RESP 11–16; TEMP 98.4–99.1; O2SAT 98–100
[2016-09-15] MEDS: LACTATED RINGER'S 1000 ML INJ 1,000 ML IV SCH (02:18)
[2016-09-15] MEDS: PROPOFOL 1000 MG/100 ML INJ 100 ML IV SCH ×6 (02:18→20:35)
[2016-09-15] MEDS: PIPERACIL-TAZO 3.375 GM PREMIX 50 ML IV SCH ×4 (03:59→22:04)
[2016-09-15] MEDS: CHLORHEXIDINE GLUCONATE 2 % 1 PACK (2 CLOTHS) TOP SCH (03:59)
[2016-09-15] MEDS: RESP: ALBUTEROL 2.5 MG/IPRATROPIUM 0.5 MG NEB (SCH) NEB ×4 (04:08→20:51)
[2016-09-15 04:18] LABS: BLOOD GAS BASE EXCESS 1.2 mmol/L (-2-2); BLOOD GAS CARBOXYHEMOGLOBIN 1.5 % (0-4); BLOOD GAS HCO3 26 mmol/L (22-26); BLOOD GAS METHEMOGLOBIN 0.9 % (0-2); BLOOD GAS O2 HGB SATURATION 95 % (90-100); BLOOD GAS OXYGEN CONTENT 14.9 Vol % (12.0-20.0); BLOOD GAS PCO2 50 mmHg (38-42); BLOOD GAS PO2 91 mmHg (61-120); BLOOD GAS TOTAL HGB 11.1 G/DL (12.0-16.0); CRITICAL VALUE NO; OXYGEN DEVICE VENTILATOR; TEMP CORR TO 98.6
[2016-09-15 04:19] LABS: DRAW SITE ART LINE; FIO2 40 %; STAT NO; VENT SETTINGS APRV
[2016-09-15 04:22] LABS: BASOPHIL # 0.1 TH/MM3 (0-0.2); BASOPHIL % 0.6 % (0.0-2.0); EOSINOPHIL # 0.4 TH/MM3 (0-0.4); EOSINOPHIL % 1.9 % (0.0-4.0); HEMATOCRIT 28.3 % (39.0-51.0); LYMPH % 7.2 % (9.0-44.0); LYMPHOCYTE # 1.6 TH/MM3 (1.0-4.8); MEAN CELL VOLUME 90.2 FL (80.0-100.0); MEAN CORPUSCULAR HEMOGLOBIN 29.3 PG (27.0-34.0); MEAN CORPUSCULAR HGB CONC 32.5 % (32.0-36.0); MONO % 15.2 % (0.0-8.0); NEUT % 75.1 % (16.0-70.0); PLATELET COUNT 242 TH/MM3 (150-450); RED BLOOD COUNT 3.14 MIL/MM3 (4.50-5.90); RED CELL DISTRIBUTION WIDTH 16.3 % (11.6-17.2); WHITE BLOOD COUNT 22.6 TH/MM3 (4.0-11.0)
[2016-09-15 04:29] LABS: HEMO FLAGS AUTO DIFF
[2016-09-15] MEDS: fentaNYL DRIP 250 ML IV SCH ×2 (04:47→14:39)
[2016-09-15 04:58] LABS: ALT (GPT) 41 U/L (12-78); ANION GAP 6 MEQ/L (5-15); AST (GOT) 42 U/L (15-37); BICARBONATE 28.8 MEQ/L (21.0-32.0); BLOOD UREA NITROGEN 41 MG/DL (7-18); CHLORIDE 109 MEQ/L (98-107); GLOMERULAR FILTRATION RATE 55 ML/MIN (>89); MAGNESIUM 2.3 MG/DL (1.5-2.5); POTASSIUM 4.1 MEQ/L (3.5-5.1); SODIUM (NA) 144 MEQ/L (136-145)
[2016-09-15 05:00] LABS: ALKALINE PHOSPHATASE 88 U/L (45-117); TOTAL BILIRUBIN ADULT 1.1 MG/DL (0.2-1.0)
--- NOTE | 2016-09-15 06:38 | RADRPT ---
EXAM DATE/TIME: 09/15/2016 05:05 [facility] COMPARISON: CHEST SINGLE AP, September 14, 2016, 4:44. INDICATIONS : Shortness of breath, possible pulmonary disease. MEDICAL HISTORY : None. SURGICAL HISTORY : None. ENCOUNTER: Subsequent ACUITY: 1 week PAIN SCORE: Non-responsive. LOCATION: Bilateral chest FINDINGS: The cardiac silhouette is enlarged in transverse diameter. Support lines and tubes are in satisfactor y position. There is subsegmental atelectasis in the left base. A small left sided effusion is presen t. The right lung is free of acute parenchymal opacity. CONCLUSION: 1. Left lower lobe atelectasis and small left effusion. The findings are improved when compared with the prior exam. 2. There is no evidence of pneumothorax. Thomas Morton MD on September 15, 2016 at 6:36 Board Certified Radiologist. This report was verified electronically.
[2016-09-15 08:35] LABS: BANDS 12 % (0-6); CORRECTED NUCLEATED RBC 3 /100 WBC (0-0); EOSINOPHILS 2 % (0-4); MYELOCYTES 1 % (0-0); NEUTROPHIL # MANUAL DIFF 19.9 TH/MM3 (1.8-7.7); POLYS (SEG NEUTROPHILS) 75 % (16-70); WBC DIFF SAMPLE 100
[2016-09-15 08:36] LABS: PLATELET ESTIMATE SMEAR NORMAL (NORMAL); PLATELET MORPHOLOGY NORMAL (NORMAL); SCAN/DIFF FINAL DIFF MANUAL
[2016-09-15] MEDS: CHLORHEXIDINE 0.12% (ORAL KIT) 15 ML CUP MT SCH ×2 (08:58→20:34)
[2016-09-15] MEDS: BACITRACIN TOP OINT 15 GM TUBE TOPICAL SCH ×2 (09:00→20:35)
[2016-09-15] MEDS: SODIUM CHLORIDE 0.9% FLUSH 10 ML FLUSH IV FLUSH SCH ×2 (09:12→20:34)
[2016-09-15] MEDS: ENOXAPARIN SODIUM 30 MG/0.3 ML SYRINGE SQ SCH ×2 (09:13→20:35)
[2016-09-15] MEDS: FAMOTIDINE 20 MG/2 ML VIAL IV PUSH SCH ×2 (09:13→20:34)
--- NOTE | 2016-09-15 10:52 | HHI.NSPN ---
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 anterior abdominal wall in the midline through which bowel extends. Due to the reconstructed field of view we are unable to fully visualize the bowel extending into the open wound. Secondary to patient condition we are unable to repeat the examination with more appropriate scanner settings. 2. Ruptured spleen. There is little normal splenic tissue visualized. Multiple surgical sponges are present in the splenic bed in the left upper quadrant. There is a small amount of blood products in the left upper quadrant and left upper quadrant retroperitoneum. 3. 2 additional sponges are present in the midline pelvis and anterior right lower quadrant. 4. The left second through ninth ribs are fractured. Antonio Brown MD Knee X-Ray 09/12/16 0000 Signed Impressions: Service Date/Time: August 21:33 - CONCLUSION: 1. Limited two-view exam. 2. No acute fracture or malalignment. 3. Left tissue swelling. Jamshid Pérez MD Pelvis X-Ray 09/11/16 0000 Signed Impressions: Service Date/Time: Sunday, September 11, 2016 16:03 - CONCLUSION: No acute disease. Wild Hinton MD Attending Statement NEURO: Continue neuro checks. A follow-up CT of the head will be obtained when medically more stable. Acute respiratory failure Continue mechanical ventilation, Continue pulmonary toilette, nasotracheal suction, and breathing treatments with nebulizers. Left pneumothorax. Chest tube to 20 cm suction with management per trauma surgery. Follow-up chest x-ray in a.m. Left-sided rib fractures (2-9). Narcotics as needed Pulmonary contusions. defer to traua surgeon Tobacco abuse. 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 s/p ex lap and splenectomy with open abdomen and wound vac per Dr. Foote 09/11 AND 09/13. Wound vac management per trauma surgery. Moderate protein energy malnutrition. NUTRITION CONSULT Hypokalemia. Replace electrolytes as indicated per ICU electrolyte replacement protocol. ID. Zosyn 3.75 IV every 6 hours for SBP prophylaxis. Splenectomy vaccines prior to discharge F/u U/a and culture. Acute blood loss anemia Consumptive coagulopathy of trauma Thrombocytopenia. Transfuse 2 additional units PRBC, 4 units FFP, 10 units of cryo. F/u Fibrinogen, coags, CBC. Poorly controlled Diabetes mellitus. Insulin drip. Continue to Monitor serial Acu checks and SSI for tight control PT and OT Nutrition. tube feedings Renal. Continue to monitor closely urine output, BUN and creatinine Continue Protonix for stress ulcer prophylaxis Continue Xavier hose and SCD's for DVT prophylaxis. Lovenox Discussed with substance abuse nurse Bernard Stallworth MD Sep 15, 2016 10:52
[2016-09-15] MEDS ORDERED: BUMETANIDE INJ 1 MG/4 ML VIAL IV PUSH ONE (11:00)
[2016-09-15 11:08] LABS: BLOOD GAS BASE EXCESS 1.7 mmol/L (-2-2); BLOOD GAS CARBOXYHEMOGLOBIN 1.5 % (0-4); BLOOD GAS HCO3 27 mmol/L (22-26); BLOOD GAS METHEMOGLOBIN 0.9 % (0-2); BLOOD GAS O2 HGB SATURATION 97 % (90-100); BLOOD GAS OXYGEN CONTENT 13.3 Vol % (12.0-20.0); BLOOD GAS PCO2 48 mmHg (38-42); BLOOD GAS PO2 190 mmHg (61-120); BLOOD GAS TOTAL HGB 9.4 G/DL (12.0-16.0); CRITICAL VALUE NO; OXYGEN DEVICE VENTILATOR; TEMP CORR TO 98.6
[2016-09-15] MEDS: ALBUMIN HUMAN 25% 25 GM/100 ML BAGP IV SCH ×2 (11:08→23:03)
[2016-09-15 11:09] LABS: DRAW SITE ART LINE; FIO2 75 %; STAT NO
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
[2016-09-15] MEDS: INSULIN DETEMIR 100 UNITS/ML VIAL SQ SCH ×2 (12:07→20:35)
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
[2016-09-15] MEDS: INSULIN ASPART SUPPLEMENTAL SCALE SQ SCH ×4 (14:00→23:19)
[2016-09-15] MEDS: BUMETANIDE INJ 1 MG/4 ML VIAL IV PUSH SCH (17:33)
[2016-09-16] VITALS (21 sets, daily range): BP systolic 102–186; BP diastolic 44–79; PULSE 78–99; RESP 16; TEMP 98.1–99; O2SAT 92–99
[2016-09-16] MEDS: PROPOFOL 1000 MG/100 ML INJ 100 ML IV SCH ×10 (01:40→23:01)
[2016-09-16] MEDS: fentaNYL DRIP 250 ML IV SCH ×2 (01:40→09:30)
[2016-09-16] MEDS: INSULIN ASPART SUPPLEMENTAL SCALE SQ SCH ×8 (02:34→23:01)
[2016-09-16] MEDS: RESP: ALBUTEROL 2.5 MG/IPRATROPIUM 0.5 MG NEB (SCH) NEB ×4 (02:37→20:21)
[2016-09-16] MEDS: PIPERACIL-TAZO 3.375 GM PREMIX 50 ML IV SCH ×4 (03:47→21:12)
[2016-09-16] MEDS: CHLORHEXIDINE GLUCONATE 2 % 1 PACK (2 CLOTHS) TOP SCH (03:47)
[2016-09-16 05:02] LABS: AUTOMATED NEUTROPHIL # 15.7 TH/MM3 (1.8-7.7); BASOPHIL # 0.1 TH/MM3 (0-0.2); BASOPHIL % 0.5 % (0.0-2.0); EOSINOPHIL # 0.8 TH/MM3 (0-0.4); EOSINOPHIL % 3.3 % (0.0-4.0); HEMATOCRIT 24.8 % (39.0-51.0); LYMPH % 9.3 % (9.0-44.0); LYMPHOCYTE # 2.1 TH/MM3 (1.0-4.8); MEAN CELL VOLUME 88.9 FL (80.0-100.0); MEAN CORPUSCULAR HEMOGLOBIN 29.7 PG (27.0-34.0); MEAN CORPUSCULAR HGB CONC 33.4 % (32.0-36.0); MONO % 17.6 % (0.0-8.0); NEUT % 69.3 % (16.0-70.0); PLATELET COUNT 298 TH/MM3 (150-450); RED BLOOD COUNT 2.79 MIL/MM3 (4.50-5.90); RED CELL DISTRIBUTION WIDTH 15.9 % (11.6-17.2); WHITE BLOOD COUNT 22.7 TH/MM3 (4.0-11.0)
[2016-09-16 05:13] LABS: HEMO FLAGS AUTO DIFF
[2016-09-16 05:34] LABS: PROTHROMBIN TIME - PATIENT 11.5 SEC (9.8-11.6)
[2016-09-16 05:34] LABS: BLOOD GAS BASE EXCESS 3.2 mmol/L (-2-2); BLOOD GAS CARBOXYHEMOGLOBIN 1.6 % (0-4); BLOOD GAS HCO3 27 mmol/L (22-26); BLOOD GAS O2 HGB SATURATION 89 % (90-100); BLOOD GAS OXYGEN CONTENT 12.3 Vol % (12.0-20.0); BLOOD GAS PCO2 39 mmHg (38-42); BLOOD GAS PO2 61 mmHg (61-120); BLOOD GAS TOTAL HGB 9.8 G/DL (12.0-16.0); CRITICAL VALUE YES; OXYGEN DEVICE VENTILATOR; TEMP CORR TO 98.6
[2016-09-16 05:35] LABS: DRAW SITE ART LINE; FIO2 40 %; STAT NO; VENT SETTINGS PRVC/AC
[2016-09-16 05:44] LABS: ALKALINE PHOSPHATASE 79 U/L (45-117); ALT (GPT) 30 U/L (12-78); ANION GAP 6 MEQ/L (5-15); AST (GOT) 31 U/L (15-37); BICARBONATE 29.6 MEQ/L (21.0-32.0); BLOOD UREA NITROGEN 51 MG/DL (7-18); CHLORIDE 110 MEQ/L (98-107); GLOMERULAR FILTRATION RATE 56 ML/MIN (>89); MAGNESIUM 2.4 MG/DL (1.5-2.5); SODIUM (NA) 146 MEQ/L (136-145); TOTAL BILIRUBIN ADULT 1.2 MG/DL (0.2-1.0)
[2016-09-16 05:46] LABS: POTASSIUM 2.9 MEQ/L (3.5-5.1)
--- NOTE | 2016-09-16 06:50 | RADRPT ---
EXAM DATE/TIME: 09/16/2016 04:53 [place] COMPARISON: CHEST SINGLE AP, September 15, 2016, 5:05. CHEST SINGLE AP, September 14, 2016, 4:44. INDICATIONS : Shortness of breath. possible pulmonary disease. MEDICAL HISTORY : None. SURGICAL HISTORY : None. ENCOUNTER: Subsequent ACUITY: 1 week PAIN SCORE: Non-responsive. LOCATION: Bilateral chest FINDINGS: A single view of the chest demonstrates the chest tube, endotracheal tube, and nasogastric all in sta ble position. Heart remains enlarged. Multiple left-sided rib fractures are again noted. Right lung i s clear. Osseous structures are intact. CONCLUSION: Tubes and catheter in good position. Left chest tube remains without evidence of pneumothorax. Gilbert Jay MD on September 16, 2016 at 6:47 Board Certified Radiologist. This report was verified electronically.
[2016-09-16 06:59] LABS: BANDS 8 % (0-6); CORRECTED NUCLEATED RBC 1 /100 WBC (0-0); EOSINOPHILS 2 % (0-4); MYELOCYTES 1 % (0-0); NEUTROPHIL # MANUAL DIFF 16.8 TH/MM3 (1.8-7.7); PLATELET ESTIMATE SMEAR NORMAL (NORMAL); PLATELET MORPHOLOGY NORMAL (NORMAL); POLYS (SEG NEUTROPHILS) 65 % (16-70); WBC DIFF SAMPLE 100
[2016-09-16 07:00] LABS: SCAN/DIFF FINAL DIFF MANUAL
[2016-09-16] MEDS: POTASSIUM CHLOR 40 MEQ PREMIX 100 ML IV PRN ×2 (07:21→09:14)
[2016-09-16] MEDS: CHLORHEXIDINE 0.12% (ORAL KIT) 15 ML CUP MT SCH ×2 (08:00→20:46)
[2016-09-16] MEDS ORDERED: LACTATED RINGER'S 1000 ML INJ 1,000 ML IV ONE (08:38)
[2016-09-16] MEDS: BACITRACIN TOP OINT 15 GM TUBE TOPICAL SCH ×2 (09:00→20:46)
[2016-09-16] MEDS: ENOXAPARIN SODIUM 30 MG/0.3 ML SYRINGE SQ SCH ×2 (09:00→20:45)
[2016-09-16] MEDS: INSULIN DETEMIR 100 UNITS/ML VIAL SQ SCH ×2 (09:31→20:45)
[2016-09-16] MEDS: BUMETANIDE INJ 1 MG/4 ML VIAL IV PUSH SCH ×2 (09:32→17:17)
[2016-09-16] MEDS: SODIUM CHLORIDE 0.9% FLUSH 10 ML FLUSH IV FLUSH SCH ×2 (09:32→20:46)
[2016-09-16] MEDS: ALBUMIN HUMAN 25% 25 GM/100 ML BAGP IV SCH ×2 (10:16→21:30)
[2016-09-16] MEDS: FAMOTIDINE 20 MG/2 ML VIAL IV PUSH SCH ×2 (10:18→20:45)
[2016-09-16 11:45] LABS: BLOOD GAS BASE EXCESS 0.4 mmol/L (-2-2); BLOOD GAS CARBOXYHEMOGLOBIN 1.5 % (0-4); BLOOD GAS HCO3 26 mmol/L (22-26); BLOOD GAS O2 HGB SATURATION 94 % (90-100); BLOOD GAS OXYGEN CONTENT 16.3 Vol % (12.0-20.0); BLOOD GAS PCO2 53 mmHg (38-42); BLOOD GAS PO2 100 mmHg (61-120); BLOOD GAS TOTAL HGB 12.2 G/DL (12.0-16.0); CRITICAL VALUE YES; DRAW SITE ART LINE; FIO2 60 %; OXYGEN DEVICE VENTILATOR; STAT YES; TEMP CORR TO 98.6
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
--- NOTE | 2016-09-16 13:14 | RADRPT ---
EXAM DATE/TIME: 09/16/2016 13:35 [facility] COMPARISON: No previous studies available for comparison. INDICATIONS : Instrument verification. MEDICAL HISTORY : None. SURGICAL HISTORY : Fusion, lumbar. ENCOUNTER: Initial ACUITY: 1 week PAIN SCORE: Non-responsive. LOCATION: Abdomen. FINDINGS: Supine view of the abdomen was performed. The abdominal bowel gas pattern is normal. No abnormal ma sses, calcifications, or organomegaly is seen. The osseous structures are unremarkable. No radiopaqu e foreign body or instrument identified. Lower lumbar spine fusion hardware noted. Degenerative lr es are noted throughout the lumbar and lower thoracic spine. CONCLUSION: No radiopaque foreign body or instrument identified. Degenerative changes throughout the lumbar and lower thoracic spine. Josh Sampson MD on September 16, 2016 at 13:11 Board Certified Radiologist. This report was verified electronically.
--- NOTE | 2016-09-16 15:31 | MP ---
cc: SHREYA HOFFMANN MD DATE OF SURGERY: 09/16/2016 PREOPERATIVE DIAGNOSIS Status post intra-abdominal hemorrhage and splenectomy, open abdomen with wound vac, respiratory failure. POSTOPERATIVE DIAGNOSIS Status post intra-abdominal hemorrhage and splenectomy, open abdomen with wound vac, respiratory failure. OPERATIVE PROCEDURE Washout of the abdomen, abdominal exploration and secondary closure of abdomen in layers. SURGEON Dr. Hoffmann. ANESTHESIA General. ESTIMATED BLOOD LOSS 50 ccs. PROCEDURE The patient was prepped and draped in usual fashion. The old wound vac has been removed. The patient's abdomen is now explored in quadrants. Joyner is placed first in the right upper quadrant and this was washed out with warm saline. No retained fluid or collections were found. Same is done on the left upper quadrant pelvis and then the midabdomen. The patient has very clean small bowel, no signs of injury, splenic bed is nice and dry. Decision is now made to see if we can close this abdomen. The issue is not intra-abdominal pressure or intra-abdominal contents, the problem is the patient is so obese that the abdominal wall was pulled laterally down toward the table essentially. Closure is now started from bottom up with running #1 PDS loop. This was carried out about 4 inches up and #1 Vicryl [id number] was placed another 2 inches up and another one Vicryl [id number] is placed here by interrupting and running stitch is being interchanged. In addition, six strands of #2 Prolene are placed as retention sutures and placed on hemostats until the very end. The closure is continued from bottom up and then mcc, was started from the top down, same thing again, running #1 PDS loop and interrupted #1 Vicryl [id number]. Finally the stitches met and hereby abdomen is closed. Throughout this peak inspiratory pressures were checked and they only went from 28 to 30 mmHg which is remarkable. The retentions are now tied over a red rubber [place] booties and then a dressing is applied. The patient is placed in a large binder and transferred to the ICU bed. The patient tolerated the procedure well. Shreya PAGE/YOVANA /2:29 PM /3:14 PM
[2016-09-16 15:47] LABS: BLOOD GAS BASE EXCESS 1.7 mmol/L (-2-2); BLOOD GAS CARBOXYHEMOGLOBIN 1.9 % (0-4); BLOOD GAS HCO3 26 mmol/L (22-26); BLOOD GAS O2 HGB SATURATION 89 % (90-100); BLOOD GAS OXYGEN CONTENT 16.1 Vol % (12.0-20.0); BLOOD GAS PCO2 38 mmHg (38-42); BLOOD GAS PO2 63 mmHg (61-120); BLOOD GAS TOTAL HGB 12.8 G/DL (12.0-16.0); CRITICAL VALUE YES; OXYGEN DEVICE VENTILATOR; TEMP CORR TO 98.6
[2016-09-16 15:48] LABS: DRAW SITE ART LINE; FIO2 45 %; STAT NO; VENT SETTINGS SEE COMMENTS
[2016-09-17] VITALS (19 sets, daily range): BP systolic 103–132; BP diastolic 47–54; PULSE 11–111; RESP 16–20; TEMP 99–99.7; O2SAT 94–96
[2016-09-17] MEDS: CHLORHEXIDINE GLUCONATE 2 % 1 PACK (2 CLOTHS) TOP SCH (02:06)
[2016-09-17] MEDS: INSULIN ASPART SUPPLEMENTAL SCALE SQ SCH ×8 (02:06→22:30)
[2016-09-17] MEDS: PROPOFOL 1000 MG/100 ML INJ 100 ML IV SCH ×9 (02:06→22:30)
[2016-09-17] MEDS: PIPERACIL-TAZO 3.375 GM PREMIX 50 ML IV SCH ×4 (02:06→20:20)
[2016-09-17] MEDS: fentaNYL DRIP 250 ML IV SCH ×3 (02:07→20:17)
[2016-09-17] MEDS: RESP: ALBUTEROL 2.5 MG/IPRATROPIUM 0.5 MG NEB (SCH) NEB ×4 (03:27→20:32)
[2016-09-17 04:56] LABS: BLOOD GAS BASE EXCESS 1.6 mmol/L (-2-2); BLOOD GAS CARBOXYHEMOGLOBIN 1.6 % (0-4); BLOOD GAS HCO3 26 mmol/L (22-26); BLOOD GAS O2 HGB SATURATION 95 % (90-100); BLOOD GAS PCO2 41 mmHg (38-42); BLOOD GAS PO2 87 mmHg (61-120); BLOOD GAS TOTAL HGB 8.2 G/DL (12.0-16.0); CRITICAL VALUE NO; TEMP CORR TO 98.6
[2016-09-17 04:57] LABS: DRAW SITE ART LINE; FIO2 80 %; OXYGEN DEVICE VENTILATOR; STAT NO; VENT SETTINGS PRVC/AC
[2016-09-17 05:49] LABS: AUTOMATED NEUTROPHIL # 19.8 TH/MM3 (1.8-7.7); BASOPHIL % 0.1 % (0.0-2.0); EOSINOPHIL # 0.7 TH/MM3 (0-0.4); EOSINOPHIL % 2.6 % (0.0-4.0); LYMPH % 7.9 % (9.0-44.0); LYMPHOCYTE # 2.1 TH/MM3 (1.0-4.8); MEAN CELL VOLUME 90.1 FL (80.0-100.0); MEAN CORPUSCULAR HEMOGLOBIN 29.7 PG (27.0-34.0); MEAN CORPUSCULAR HGB CONC 32.9 % (32.0-36.0); MONO % 16.4 % (0.0-8.0); PLATELET COUNT 335 TH/MM3 (150-450); RED BLOOD COUNT 2.89 MIL/MM3 (4.50-5.90); RED CELL DISTRIBUTION WIDTH 15.9 % (11.6-17.2); WHITE BLOOD COUNT 27.2 TH/MM3 (4.0-11.0)
[2016-09-17 05:51] LABS: HEMO FLAGS AUTO DIFF
[2016-09-17 06:26] LABS: BICARBONATE 28.5 MEQ/L (21.0-32.0); CALCIUM-PROTEIN CORRECTED 8.3 MG/DL (8.5-10.1); MAGNESIUM 2.6 MG/DL (1.5-2.5); POTASSIUM 3.9 MEQ/L (3.5-5.1); TOTAL BILIRUBIN ADULT 1.5 MG/DL (0.2-1.0)
--- NOTE | 2016-09-17 06:48 | RADRPT ---
EXAM DATE/TIME: 09/17/2016 05:43 [facility] COMPARISON: CHEST SINGLE AP, September 15, 2016, 5:05. CHEST SINGLE AP, September 16, 2016, 4:53. INDICATIONS : Short of breath. MEDICAL HISTORY : None. SURGICAL HISTORY : None. ENCOUNTER: Subsequent ACUITY: 1 week PAIN SCORE: Non-responsive. LOCATION: Bilateral chest FINDINGS: A single view of the chest demonstrates the endotracheal tube, nasogastric tube and left chest tube a ll in good position. Persistent consolidation in both lung bases slightly worse than the previous richard m. Multiple left-sided rib fractures again noted. Left subclavian central line in good position CONCLUSION: Worsening consolidation both lung bases from the previous day. Tubes and catheters in good position. Gilbert Jay MD on September 17, 2016 at 6:45 Board Certified Radiologist. This report was verified electronically.
[2016-09-17] MEDS: ENOXAPARIN SODIUM 30 MG/0.3 ML SYRINGE SQ SCH ×2 (08:01→20:20)
[2016-09-17] MEDS: FAMOTIDINE 20 MG/2 ML VIAL IV PUSH SCH ×2 (08:01→20:20)
[2016-09-17] MEDS: BUMETANIDE INJ 1 MG/4 ML VIAL IV PUSH SCH (08:01)
[2016-09-17] MEDS: INSULIN DETEMIR 100 UNITS/ML VIAL SQ SCH ×2 (08:02→20:17)
[2016-09-17] MEDS: SODIUM CHLORIDE 0.9% FLUSH 10 ML FLUSH IV FLUSH SCH ×2 (08:04→20:21)
[2016-09-17] MEDS: BACITRACIN TOP OINT 15 GM TUBE TOPICAL SCH ×2 (08:04→20:21)
[2016-09-17] MEDS: CHLORHEXIDINE 0.12% (ORAL KIT) 15 ML CUP MT SCH ×2 (08:04→20:20)
[2016-09-17 08:43] LABS: BANDS 9 % (0-6); CORRECTED NUCLEATED RBC 1 /100 WBC (0-0); EOSINOPHILS 2 % (0-4); METAMYELOCYTES 2 % (0-1); MYELOCYTES 5 % (0-0); NEUTROPHIL # MANUAL DIFF 20.4 TH/MM3 (1.8-7.7); POLYS (SEG NEUTROPHILS) 58 % (16-70); PROMYELOCYTES 1 % (0-0); WBC DIFF SAMPLE 100
[2016-09-17 08:44] LABS: PLATELET ESTIMATE SMEAR NORMAL (NORMAL); PLATELET MORPHOLOGY NORMAL (NORMAL); SCAN/DIFF FINAL DIFF MANUAL
[2016-09-17 10:24] LABS: BLOOD GAS BASE EXCESS 2.4 mmol/L (-2-2); BLOOD GAS CARBOXYHEMOGLOBIN 1.5 % (0-4); BLOOD GAS HCO3 27 mmol/L (22-26); BLOOD GAS METHEMOGLOBIN 1.1 % (0-2); BLOOD GAS O2 HGB SATURATION 91 % (90-100); BLOOD GAS OXYGEN CONTENT 11.9 Vol % (12.0-20.0); BLOOD GAS PCO2 42 mmHg (38-42); BLOOD GAS PO2 68 mmHg (61-120); BLOOD GAS TOTAL HGB 9.2 G/DL (12.0-16.0); TEMP CORR TO 98.6
[2016-09-17 10:25] LABS: CRITICAL VALUE NO; DRAW SITE ART LINE; FIO2 80 %; OXYGEN DEVICE VENTILATOR; STAT NO; VENT SETTINGS AC16/600/10PEEP
[2016-09-17] MEDS ORDERED: Vancomycin Consult Pharmacy 1 EA OTHER SCH (11:30)
[2016-09-17] MEDS ORDERED: VANCOMYCIN INJ 1,000 MG in SODIUM CHLOR 0.9% 250 ML INJ 250 ML IV ONE (11:30)
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
[2016-09-17] MEDS: FREE WATER G-TUBE SCH ×3 (12:17→22:30)
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
[2016-09-17] MEDS: VANCOMYCIN INJ 2,000 MG in SODIUM CHLORID 0.9% 500 ML INJ 500 ML IV SCH (15:50)
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
[2016-09-18] VITALS (20 sets, daily range): BP systolic 120–157; BP diastolic 52–59; PULSE 89–117; RESP 11–22; TEMP 99–99.5; O2SAT 93–97
[2016-09-18] MEDS: INSULIN ASPART SUPPLEMENTAL SCALE SQ SCH ×8 (01:29→23:00)
[2016-09-18] MEDS: PROPOFOL 1000 MG/100 ML INJ 100 ML IV SCH ×7 (01:30→22:18)
[2016-09-18] MEDS: RESP: ALBUTEROL 2.5 MG/IPRATROPIUM 0.5 MG NEB (SCH) NEB ×3 (03:32→17:49)
[2016-09-18] MEDS: CHLORHEXIDINE GLUCONATE 2 % 1 PACK (2 CLOTHS) TOP SCH (03:41)
[2016-09-18] MEDS: PIPERACIL-TAZO 3.375 GM PREMIX 50 ML IV SCH ×4 (03:41→20:52)
[2016-09-18 04:50] LABS: BASOPHIL # 0.2 TH/MM3 (0-0.2); BASOPHIL % 0.6 % (0.0-2.0); EOSINOPHIL # 0.6 TH/MM3 (0-0.4); EOSINOPHIL % 2.1 % (0.0-4.0); HEMATOCRIT 27.4 % (39.0-51.0); LYMPH % 7.5 % (9.0-44.0); LYMPHOCYTE # 2.3 TH/MM3 (1.0-4.8); MEAN CELL VOLUME 91.6 FL (80.0-100.0); MEAN CORPUSCULAR HEMOGLOBIN 29.7 PG (27.0-34.0); MEAN CORPUSCULAR HGB CONC 32.4 % (32.0-36.0); MONO % 14.5 % (0.0-8.0); NEUT % 75.3 % (16.0-70.0); PLATELET COUNT 429 TH/MM3 (150-450); RED BLOOD COUNT 2.99 MIL/MM3 (4.50-5.90); RED CELL DISTRIBUTION WIDTH 16.3 % (11.6-17.2); WHITE BLOOD COUNT 30.5 TH/MM3 (4.0-11.0)
[2016-09-18 04:55] LABS: HEMO FLAGS AUTO DIFF
[2016-09-18 05:07] LABS: ALKALINE PHOSPHATASE 103 U/L (45-117); ALT (GPT) 26 U/L (12-78); ANION GAP 10 MEQ/L (5-15); AST (GOT) 31 U/L (15-37); BLOOD UREA NITROGEN 69 MG/DL (7-18); CHLORIDE 113 MEQ/L (98-107); GLOMERULAR FILTRATION RATE 44 ML/MIN (>89); MAGNESIUM 2.8 MG/DL (1.5-2.5); POTASSIUM 3.9 MEQ/L (3.5-5.1); SODIUM (NA) 151 MEQ/L (136-145); TOTAL BILIRUBIN ADULT 1.4 MG/DL (0.2-1.0)
[2016-09-18] MEDS: FREE WATER G-TUBE SCH ×3 (05:14→17:57)
[2016-09-18 05:17] LABS: BLOOD GAS BASE EXCESS 0.7 mmol/L (-2-2); BLOOD GAS CARBOXYHEMOGLOBIN 1.4 % (0-4); BLOOD GAS HCO3 26 mmol/L (22-26); BLOOD GAS O2 HGB SATURATION 93 % (90-100); BLOOD GAS OXYGEN CONTENT 11.7 Vol % (12.0-20.0); BLOOD GAS PCO2 46 mmHg (38-42); BLOOD GAS PO2 78 mmHg (61-120); BLOOD GAS TOTAL HGB 8.9 G/DL (12.0-16.0); CRITICAL VALUE NO; OXYGEN DEVICE VENTILATOR; TEMP CORR TO 98.6
[2016-09-18 05:18] LABS: DRAW SITE ART LINE; FIO2 80 %; STAT NO; VENT SETTINGS AC/18/550/PEEP 14
[2016-09-18 05:37] LABS: BANDS 4 % (0-6); BASOPHILS 1 % (0-2); CORRECTED NUCLEATED RBC 1 /100 WBC (0-0); EOSINOPHILS 2 % (0-4); METAMYELOCYTES 2 % (0-1); MYELOCYTES 1 % (0-0); NEUTROPHIL # MANUAL DIFF 24.1 TH/MM3 (1.8-7.7); POLYS (SEG NEUTROPHILS) 72 % (16-70); WBC DIFF SAMPLE 100
[2016-09-18 05:38] LABS: PLATELET ESTIMATE SMEAR HIGH (NORMAL); PLATELET MORPHOLOGY NORMAL (NORMAL); SCAN/DIFF FINAL DIFF MANUAL
--- NOTE | 2016-09-18 06:20 | RADRPT ---
EXAM DATE/TIME: 09/18/2016 05:36 [facility] COMPARISON: CHEST SINGLE AP, September 17, 2016, 5:43. CHEST SINGLE AP, September 16, 2016, 4:53. INDICATIONS : Shortness of breath. MEDICAL HISTORY : None. SURGICAL HISTORY : None. ENCOUNTER: Subsequent ACUITY: 1 week PAIN SCORE: Non-responsive. LOCATION: Bilateral chest FINDINGS: A single view of the chest demonstrates the endotracheal tube, nasogastric tube and left-sided chest tube are in good position. The cardiac silhouette remains dilated. Mild bilateral pulmonary vascular congestion. Persistent consolidation left lung base likely atelectasis.. The cardiomediastinal conto urs are unremarkable. Osseous structures are intact. CONCLUSION: Stable tubes and catheters. Better aeration right lung base. Gilbert Jay MD on September 18, 2016 at 6:17 Board Certified Radiologist. This report was verified electronically.
[2016-09-18] MEDS: CHLORHEXIDINE 0.12% (ORAL KIT) 15 ML CUP MT SCH ×2 (08:00→20:17)
[2016-09-18] MEDS: ENOXAPARIN SODIUM 30 MG/0.3 ML SYRINGE SQ SCH ×2 (08:31→20:52)
[2016-09-18] MEDS: FAMOTIDINE 20 MG/2 ML VIAL IV PUSH SCH ×2 (08:32→20:15)
[2016-09-18] MEDS: INSULIN DETEMIR 100 UNITS/ML VIAL SQ SCH ×2 (08:32→20:14)
[2016-09-18] MEDS: SODIUM CHLORIDE 0.9% FLUSH 10 ML FLUSH IV FLUSH SCH ×2 (09:00→20:17)
[2016-09-18] MEDS: BACITRACIN TOP OINT 15 GM TUBE TOPICAL SCH ×2 (09:00→20:16)
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
[2016-09-18] MEDS: fentaNYL DRIP 250 ML IV SCH (10:41)
[2016-09-18 10:42] LABS: BLOOD GAS BASE EXCESS -0.4 mmol/L (-2-2); BLOOD GAS CARBOXYHEMOGLOBIN 1.4 % (0-4); BLOOD GAS HCO3 24 mmol/L (22-26); BLOOD GAS METHEMOGLOBIN 1.2 % (0-2); BLOOD GAS O2 HGB SATURATION 91 % (90-100); BLOOD GAS OXYGEN CONTENT 12.7 Vol % (12.0-20.0); BLOOD GAS PCO2 43 mmHg (38-42); BLOOD GAS PO2 70 mmHg (61-120); BLOOD GAS TOTAL HGB 9.9 G/DL (12.0-16.0); TEMP CORR TO 98.6
[2016-09-18 10:43] LABS: CRITICAL VALUE NO; OXYGEN DEVICE VENTILATOR
[2016-09-18 10:44] LABS: DRAW SITE ART LINE; FIO2 70 %; STAT NO; VENT SETTINGS BILEVEL
[2016-09-18 12:01] LABS: STAT YES
[2016-09-18 12:01] LABS: CRITICAL VALUE YES
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
[2016-09-18 13:10] LABS: BLOOD GAS BASE EXCESS -1.3 mmol/L (-2-2); BLOOD GAS CARBOXYHEMOGLOBIN 1.4 % (0-4); BLOOD GAS HCO3 23 mmol/L (22-26); BLOOD GAS METHEMOGLOBIN 1.2 % (0-2); BLOOD GAS O2 HGB SATURATION 93 % (90-100); BLOOD GAS OXYGEN CONTENT 12.2 Vol % (12.0-20.0); BLOOD GAS PCO2 41 mmHg (38-42); BLOOD GAS PO2 83 mmHg (61-120); BLOOD GAS TOTAL HGB 9.2 G/DL (12.0-16.0); CRITICAL VALUE NO; OXYGEN DEVICE VENTILATOR; TEMP CORR TO 98.6
[2016-09-18 13:11] LABS: DRAW SITE ALINE; FIO2 70 %; STAT NO; VENT SETTINGS SEE COMMENTS
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
[2016-09-18] MEDS: VANCOMYCIN INJ 2,000 MG in SODIUM CHLORID 0.9% 500 ML INJ 500 ML IV SCH (14:33)
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
--- NOTE | 2016-09-18 23:07 | HHI.IDPN ---
Subjective Subjective Remarks Delayed entry: pt was seen around 1600 remains on lydia FiO2 slightly decreased WBC up to 30 K Spputm growing a GNB No BM NG tub in place wit LIWS Antibiotics vancomycin zosyn Allergies: Coded Allergies: No Known Allergies (Unverified , 09/11/16) Objective . Vital Signs Date Time Temp Pulse Resp B/P Pulse Ox O2 Delivery O2 Flow Rate FiO2 09/18/16 21:23 95 60 09/18/16 20:00 99.4 107 11 146/59 95 09/18/16 20:00 60 09/18/16 20:00 107 09/18/16 18:00 104 09/18/16 17:49 95 60 09/18/16 16:00 99.0 112 22 157/58 97 09/18/16 16:00 70 09/18/16 16:00 112 09/18/16 14:25 96 60 09/18/16 14:00 104 09/18/16 12:00 70 09/18/16 12:00 99.5 117 19 145/59 95 09/18/16 12:00 117 09/18/16 11:32 95 70 09/18/16 10:00 109 09/18/16 09:35 94 70 09/18/16 09:30 70 09/18/16 08:15 97 70 09/18/16 08:00 89 09/18/16 08:00 99.1 89 18 121/54 95 09/18/16 08:00 80 09/18/16 06:00 99 09/18/16 04:08 94 80 09/18/16 04:00 80 09/18/16 04:00 99.0 92 20 120/52 94 09/18/16 04:00 92 09/18/16 02:00 96 09/18/16 01:16 93 80 09/18/16 00:00 94 09/18/16 00:00 99.2 94 18 120/52 95 09/18/16 00:00 80 09/17/16 09/17/16 09/18/16 15:00 23:00 07:00 Intake Total 634 ml 1269 ml 1000 ml Output Total 1500 ml 665 ml 625 ml Balance -866 ml 604 ml 375 ml Intake IV Total 634 ml 1069 ml 600 ml Other 200 ml 400 ml Output Urine Total 1400 ml 345 ml 375 ml Gastric Drainage Total 100 ml 200 ml 150 ml Chest Tube Drainage Total 0 ml 120 ml 100 ml # Bowel Movements 0 0 0 . Laboratory Tests Test 09/17/16 09/18/16 05:38 04:35 White Blood Count 27.2 TH/MM3 30.5 TH/MM3 Red Blood Count 2.89 MIL/MM3 2.99 MIL/MM3 Hemoglobin 8.6 GM/DL 8.9 GM/DL Hematocrit 26.0 % 27.4 % Mean Corpuscular Volume 90.1 FL 91.6 FL Mean Corpuscular Hemoglobin 29.7 PG 29.7 PG Mean Corpuscular Hemoglobin 32.9 % 32.4 % Concent Red Cell Distribution Width 15.9 % 16.3 % Platelet Count 335 TH/MM3 429 TH/MM3 Mean Platelet Volume 8.9 FL 8.7 FL Neutrophils (%) (Auto) 73.0 % 75.3 % Lymphocytes (%) (Auto) 7.9 % 7.5 % Monocytes (%) (Auto) 16.4 % 14.5 % Eosinophils (%) (Auto) 2.6 % 2.1 % Basophils (%) (Auto) 0.1 % 0.6 % Neutrophils # (Auto) 19.8 TH/MM3 23.0 TH/MM3 Lymphocytes # (Auto) 2.1 TH/MM3 2.3 TH/MM3 Monocytes # (Auto) 4.5 TH/MM3 4.4 TH/MM3 Eosinophils # (Auto) 0.7 TH/MM3 0.6 TH/MM3 Basophils # (Auto) 0.0 TH/MM3 0.2 TH/MM3 CBC Comment AUTO DIFF AUTO DIFF Differential Total Cells 100 100 Counted Neutrophils % (Manual) 58 % 72 % Band Neutrophils % 9 % 4 % Lymphocytes % 9 % 10 % Monocytes % 14 % 8 % Eosinophils % 2 % 2 % Neutrophils # (Manual) 20.4 TH/MM3 24.1 TH/MM3 Metamyelocytes 2 % 2 % Myelocytes 5 % 1 % Promyelocytes 1 % Nucleated Red Blood Cells 1 /100 WBC 1 /100 WBC Differential Comment FINAL DIFF FINAL DIFF MANUAL MANUAL Platelet Estimate NORMAL HIGH Platelet Morphology Comment NORMAL NORMAL Basophils % 1 % Red Cell Morphology Comment NORMAL Laboratory Tests Test 09/17/16 09/18/16 05:38 04:35 Sodium Level 151 MEQ/L 151 MEQ/L Potassium Level 3.9 MEQ/L 3.9 MEQ/L Chloride Level 115 MEQ/L 113 MEQ/L Carbon Dioxide Level 28.5 MEQ/L 28.0 MEQ/L Anion Gap 8 MEQ/L 10 MEQ/L Blood Urea Nitrogen 58 MG/DL 69 MG/DL Creatinine 1.41 MG/DL 1.62 MG/DL Estimat Glomerular Filtration 51 ML/MIN 44 ML/MIN Rate Random Glucose 163 MG/DL 171 MG/DL Calcium Level 7.4 MG/DL 7.9 MG/DL Protein Corrected Calcium 8.3 MG/DL Phosphorus Level 3.6 MG/DL 4.2 MG/DL Magnesium Level 2.6 MG/DL 2.8 MG/DL Total Bilirubin 1.5 MG/DL 1.4 MG/DL Aspartate Amino Transf 31 U/L 31 U/L (AST/SGOT) Alanine Aminotransferase 26 U/L 26 U/L (ALT/SGPT) Alkaline Phosphatase 88 U/L 103 U/L Total Protein 5.5 GM/DL 5.7 GM/DL Albumin 2.6 GM/DL 2.4 GM/DL Microbiology Date/Time Procedure Status Source Growth 09/17/16 12:25 Gram Stain - Final Resulted Sputum Endotracheal 09/17/16 12:25 Sputum Culture - Preliminary Resulted Gram Negative Fernie 09/17/16 12:25 Urine Culture - Preliminary Resulted Urine Catheterized Urine Marlin Albicans 09/17/16 13:20 Aerobic Blood Culture - Preliminary Resulted Blood Line NO GROWTH IN 1 DAY 09/17/16 13:20 Anaerobic Blood Culture - Preliminary Resulted Blood Line NO GROWTH IN 1 DAY 09/17/16 13:31 Aerobic Blood Culture - Preliminary Resulted Blood Peripheral NO GROWTH IN 1 DAY 09/17/16 13:31 Anaerobic Blood Culture - Preliminary Resulted Blood Peripheral NO GROWTH IN 1 DAY Imaging Last Impressions Chest X-Ray 09/18/16 0600 Signed Impressions: Service Date/Time: Sunday, September 18, 2016 05:36 - CONCLUSION: Stable tubes and catheters. Better aeration right lung base. Gilbert Jay MD Abdomen X-Ray 09/16/16 0000 Signed Impressions: Service Date/Time: Friday, September 16, 2016 13:35 - CONCLUSION: No radiopaque foreign body or instrument identified. Degenerative changes throughout the lumbar and lower thoracic spine. Josh Sampson MD Thoracic Spine CT 09/12/16 1623 Signed Impressions: Service Date/Time: August 07:14 - CONCLUSION: Multiple left-sided rib fractures. Intact thoracic spine without evidence of listhesis , fracture or soft tissue abnormality. Bilateral pleural effusions with underlying airspace consolidation. Farooq Kirby MD Lumbar Spine CT 09/12/16 1623 Signed Impressions: Service Date/Time: August 07:14 - CONCLUSION: Image quality is less than optimal secondary to noise. Therefore, spinal canal is not well-visualized. There are degenerative changes present, as detailed above, with areas canal and neuroforaminal stenosis. No acute lumbar spine abnormality is identified. Antonio Brown MD Head CT [id number]/12/[id number] Signed Impressions: Service Date/Time: Sunday, September 11, 2016 16:54 - CONCLUSION: 1. Questionable small subdural hematoma in the right frontal high convexity. Secondary to the motion artifact it is uncertain if this represents a true abnormality. 2. Diffuse scalp soft tissue swelling with 5 mm radiopaque foreign body superficial to the medial right lobe. 3. Blood products are present within the left maxillary antrum and sphenoid sinus. Antonio Brown MD ADDENDUM : COMPARISON: CT CERVICAL SPINE W/O CONTRAST, September 12, 2016, 7:12. After review of the cervical spine CT a right hemorrhagic contusion in the right temporal lobe was more apparent and measures approximately 2.8 cm. Since this examination is degraded by motion artifact consider obtaining a followup noncontrasted CT when a better quality exam can be obtained. Antonio Brown MD Chest CT [id number]/12/[id number] Signed Impressions: Service Date/Time: August 07:14 - CONCLUSION: 1. Small left pneumothorax with a large bore left chest tube in place posteriorly in the superior left hemithorax. 2. Small bilateral pleural effusions with compressive/dependent atelectasis and suspected consolidation in the left upper lobe which may represent contusion. 3. Multiple fractures are present including a comminuted displaced medial left clavicle fracture and fractures of the left second through ninth ribs. 4. Ruptured spleen. Serpiginous high density structures in the splenic bed likely represents surgical packing material/sponges. Suggest correlation with the clinical history. There are retroperitoneal blood products in the left upper quadrant and there is an open wound along the anterior abdominal wall. Antonio Brown MD Cervical Spine CT 09/12/16 1623 Signed Impressions: Service Date/Time: August 07:12 - CONCLUSION: 1. No acute cervical spine abnormalities identified. 2. The visualized inferior aspect of the head documents a 2.8 cm hemorrhagic contusion in the right temporal lobe along with a trace blood products layering in the left occipital horn. Antonio Brown MD Abdomen/Pelvis CT 09/12/16 1623 Signed Impressions: Service Date/Time: August 07:14 - CONCLUSION: 1. There is an open wound on the anterior abdominal wall in the midline through which bowel extends. Due to the reconstructed field of view we are unable to fully visualize the bowel extending into the open wound. Secondary to patient condition we are unable to repeat the examination with more appropriate scanner settings. 2. Ruptured spleen. There is little normal splenic tissue visualized. Multiple surgical sponges are present in the splenic bed in the left upper quadrant. There is a small amount of blood products in the left upper quadrant and left upper quadrant retroperitoneum. 3. 2 additional sponges are present in the midline pelvis and anterior right lower quadrant. 4. The left second through ninth ribs are fractured. Antonio Brown MD Knee X-Ray 09/12/16 0000 Signed Impressions: Service Date/Time: August 21:33 - CONCLUSION: 1. Limited two-view exam. 2. No acute fracture or malalignment. 3. Left tissue swelling. Jamshid Pérez MD Pelvis X-Ray 09/11/16 0000 Signed Impressions: Service Date/Time: Sunday, September 11, 2016 16:03 - CONCLUSION: No acute disease. Wild Hinton MD Physical Exam CONSTITUTIONAL/GENERAL: This is a morbidly obese sedated intubated patient, in no apparent distress. TUBES/LINES/DRAINS: SKIN: No jaundice, , or lesions. Skin temperature appropriate. Not diaphoretic. Raised pink papular rash b/l thighs HEAD: Atraumatic. Normocephalic. EYES: Pupils equal and round and reactive. Extraocular motions intact. No scleral icterus. No injection or drainage. Fundi not examined. ENT: Hearing not tested (sedated heavily). Nose without bleeding or purulent drainage. Orally intubated NECK: Trachea midline. Supple, nontender. CARDIOVASCULAR: Regular rate and rhythm without murmurs, gallops, or rubs. No JVD. Peripheral pulses symmetric. RESPIRATORY/CHEST: Symmetric, unlabored respirations. Clear to auscultation. Breath sounds equal diminished bibasilary . No wheezes, rales, or rhonchi. L sided CT inplace with serosang dc GASTROINTESTINAL: Abdomen is markedly distended, tense retention sutures in place intact no BS GENITOURINARY: Without palpable bladder distension. Forrest catheter in place with clear yellow urine MUSCULOSKELETAL: Extremities without clubbing, cyanosis, + tight 2+edema. No mottling or clubbing. LYMPHATICS: No palpable cervical or supraclavicular adenopathy. 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 significance - cont vanco for now; will stop if BC remain negative - dc zosyn - start meropenem - not improving and critically ill after 7 days of zosyn, growing a GNB in sputum - adjust renally - fu blood clx - further rec's per clx and clinical course Herlinda Guillen MD Sep 18, 2016 23:07
[2016-09-18] MEDS ORDERED: ASP: ID consult, note reason in consult order PRN (23:15)
[2016-09-18] MEDS ORDERED: ASP: Other exception documentation: ( ) PRN (23:15)
[2016-09-18] MEDS ORDERED: MISCELLANEOUS PHARMACY INFORMATION XX PRN (23:15)
[2016-09-19] VITALS (19 sets, daily range): BP systolic 143–175; BP diastolic 53–62; PULSE 98–114; RESP 11–21; TEMP 98.2–99.8; O2SAT 95–100
[2016-09-19] MEDS: fentaNYL DRIP 250 ML IV SCH ×3 (00:04→20:13)
[2016-09-19] MEDS: PROPOFOL 1000 MG/100 ML INJ 100 ML IV SCH ×5 (01:19→23:55)
[2016-09-19] MEDS: INSULIN ASPART SUPPLEMENTAL SCALE SQ SCH ×8 (02:00→23:00)
[2016-09-19] MEDS: MEROPENEM INJ 1,000 MG in SODIUM CHLORIDE 0.9% INJ 100 ML IV SCH ×2 (02:17→11:21)
[2016-09-19] MEDS: RESP: ALBUTEROL 2.5 MG/IPRATROPIUM 0.5 MG NEB (SCH) NEB ×2 (03:42→08:10)
[2016-09-19] MEDS: CHLORHEXIDINE GLUCONATE 2 % 1 PACK (2 CLOTHS) TOP SCH (04:00)
[2016-09-19] MEDS: FREE WATER G-TUBE SCH ×5 (04:57→23:08)
--- NOTE | 2016-09-19 05:23 | RADRPT ---
EXAM DATE/TIME: 09/19/2016 04:51 [facility] COMPARISON: CHEST SINGLE AP, September 18, 2016, 5:36. INDICATIONS : Short of breath. MEDICAL HISTORY : None. SURGICAL HISTORY : None. ENCOUNTER: Initial ACUITY: 1 week PAIN SCORE: Non-responsive. LOCATION: Bilateral chest FINDINGS: A single view of the chest demonstrates a the endotracheal tube, nasogastric and left chest wall in g ood position. There numerous left-sided rib fractures superiorly. Right lung is clear. Mild atelectas is left lung base.. The cardiomediastinal contours are unremarkable. Osseous structures are intact. CONCLUSION: Persistent consolidation left lung base atelectasis versus infiltrate. ET tube in good position. Gilbert Jay MD on September 19, 2016 at 5:21 Board Certified Radiologist. This report was verified electronically.
[2016-09-19 05:27] LABS: HEMATOCRIT 29.1 % (39.0-51.0); MEAN CORPUSCULAR HGB CONC 31.5 % (32.0-36.0); PLATELET COUNT 531 TH/MM3 (150-450); RED BLOOD COUNT 3.16 MIL/MM3 (4.50-5.90); RED CELL DISTRIBUTION WIDTH 16.7 % (11.6-17.2); WHITE BLOOD COUNT 30.2 TH/MM3 (4.0-11.0)
--- NOTE | 2016-09-19 05:29 | RADRPT ---
EXAM DATE/TIME: 09/19/2016 04:21 [facility] COMPARISON: No previous studies available for comparison. INDICATIONS : Follow-up trauma head injury. RADIATION DOSE: 63.80 CTDIvol (mGy) MEDICAL HISTORY : Non-responsive. SURGICAL HISTORY : Non-responsive. ENCOUNTER: Subsequent ACUITY: 1 week PAIN SCALE: Non-responsive LOCATION: cranial TECHNIQUE: Multiple contiguous axial images were obtained of the head. Using automated exposure control and adj ustment of the mA and/or kV according to patient size, radiation dose was kept as low as reasonably a chievable to obtain optimal diagnostic quality images. FINDINGS: CEREBRUM: There is a small area of intraparenchymal hemorrhage in the right temporal lobe posteriorly measuring 13 mm across. There is a small amount of surrounding edema. There some minimal subarachnoid hemorrha ge in both parietal lobes along the sylvian fissures. There is a tiny amount of intraventricular hem orrhage on the left. The ventricles are normal for age. No evidence of midline shift, mass lesion, o r acute infarction. No extra-axial fluid collections are seen. POSTERIOR FOSSA: The cerebellum and brainstem are intact. The 4th ventricle is midline. The cerebellopontine angle i s unremarkable. EXTRACRANIAL: The visualized portion of the orbits is intact with again a small area of metal inferiorly on the rig ht. Large subcutaneous hematomas left greater than right SKULL: The calvaria is intact. No evidence of skull fracture. Fluid in both mastoid air cells and the sphen oid sinus. CONCLUSION: Evolving 13 mm area of intraparenchymal hemorrhage in the right temporal lobe with some surrounding e gael. Subarachnoid hemorrhage bilaterally in the sylvian fissures and some ventricular hemorrhage on the left. Gilbert Jay MD on September 19, 2016 at 5:23 Board Certified Radiologist. This report was verified electronically.
[2016-09-19 05:31] LABS: HEMO FLAGS AUTO DIFF
[2016-09-19 05:42] LABS: BLOOD GAS BASE EXCESS -0.5 mmol/L (-2-2); BLOOD GAS CARBOXYHEMOGLOBIN 1.4 % (0-4); BLOOD GAS HCO3 24 mmol/L (22-26); BLOOD GAS METHEMOGLOBIN 1.1 % (0-2); BLOOD GAS O2 HGB SATURATION 91 % (90-100); BLOOD GAS OXYGEN CONTENT 12.3 Vol % (12.0-20.0); BLOOD GAS PCO2 43 mmHg (38-42); BLOOD GAS PO2 72 mmHg (61-120); BLOOD GAS TOTAL HGB 9.6 G/DL (12.0-16.0); CRITICAL VALUE NO; OXYGEN DEVICE VENTILATOR; TEMP CORR TO 98.6
[2016-09-19 05:43] LABS: FIO2 60 %
[2016-09-19 05:43] LABS: ALKALINE PHOSPHATASE 129 U/L (45-117); ALT (GPT) 26 U/L (12-78); ANION GAP 9 MEQ/L (5-15); AST (GOT) 35 U/L (15-37); BICARBONATE 26.2 MEQ/L (21.0-32.0); BLOOD UREA NITROGEN 89 MG/DL (7-18); CHLORIDE 114 MEQ/L (98-107); GLOMERULAR FILTRATION RATE 38 ML/MIN (>89); MAGNESIUM 3.1 MG/DL (1.5-2.5); POTASSIUM 4.2 MEQ/L (3.5-5.1); SODIUM (NA) 149 MEQ/L (136-145); TOTAL BILIRUBIN ADULT 1.4 MG/DL (0.2-1.0)
[2016-09-19 05:45] LABS: DRAW SITE ART LINE; STAT NO; VENT SETTINGS APRV
[2016-09-19 06:56] LABS: BANDS 6 % (0-6); CORRECTED NUCLEATED RBC 1 /100 WBC (0-0); MYELOCYTES 4 % (0-0); NEUTROPHIL # MANUAL DIFF 25.7 TH/MM3 (1.8-7.7); POLYS (SEG NEUTROPHILS) 75 % (16-70); WBC DIFF SAMPLE 100
[2016-09-19 06:57] LABS: PLATELET ESTIMATE SMEAR HIGH (NORMAL); PLATELET MORPHOLOGY NORMAL (NORMAL); SCAN/DIFF FINAL DIFF MANUAL
[2016-09-19] MEDS: CHLORHEXIDINE 0.12% (ORAL KIT) 15 ML CUP MT SCH ×2 (08:00→20:12)
[2016-09-19] MEDS: SODIUM CHLORIDE 0.9% FLUSH 10 ML FLUSH IV FLUSH SCH ×2 (08:13→20:06)
[2016-09-19] MEDS: FAMOTIDINE 20 MG/2 ML VIAL IV PUSH SCH ×2 (08:13→20:06)
[2016-09-19] MEDS: BACITRACIN TOP OINT 15 GM TUBE TOPICAL SCH ×2 (08:13→20:14)
[2016-09-19] MEDS: INSULIN DETEMIR 100 UNITS/ML VIAL SQ SCH ×2 (08:13→20:05)
[2016-09-19] MEDS: ENOXAPARIN SODIUM 30 MG/0.3 ML SYRINGE SQ SCH (08:13)
[2016-09-19] MEDS ORDERED: LABETALOL HCL 100 MG/20 ML VIAL IV PUSH PRN (08:15)
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
[2016-09-19] MEDS: hydrALAZINE HCL 20 MG/ML VIAL IV PUSH SCH ×3 (10:00→22:00)
[2016-09-19] MEDS: METOPROLOL TARTRATE 5 MG/5 ML VIAL IV PUSH SCH ×3 (10:00→22:00)
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
[2016-09-19 11:19] LABS: BLOOD GAS BASE EXCESS -2.2 mmol/L (-2-2); BLOOD GAS CARBOXYHEMOGLOBIN 1.4 % (0-4); BLOOD GAS HCO3 22 mmol/L (22-26); BLOOD GAS METHEMOGLOBIN 0.8 % (0-2); BLOOD GAS O2 HGB SATURATION 96 % (90-100); BLOOD GAS OXYGEN CONTENT 12.2 Vol % (12.0-20.0); BLOOD GAS PCO2 33 mmHg (38-42); BLOOD GAS PO2 114 mmHg (61-120); BLOOD GAS TOTAL HGB 8.8 G/DL (12.0-16.0); CRITICAL VALUE NO; TEMP CORR TO 98.6
[2016-09-19 11:20] LABS: DRAW SITE ART LINE; FIO2 50 %; OXYGEN DEVICE VENTILATOR; STAT NO
[2016-09-19] MEDS: LACTULOSE SYRUP 20 GM/30 ML CUP PO SCH (11:20)
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
[2016-09-19] MEDS ORDERED: PHARMACY ORDERED LAB ONE (14:45)
[2016-09-19] MEDS: VANCOMYCIN INJ 2,000 MG in SODIUM CHLORID 0.9% 500 ML INJ 500 ML IV SCH (16:01)
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
[2016-09-19] MEDS: DOCUSATE SODIUM 100 MG CAP PO SCH (20:05)
[2016-09-19] MEDS: MAGNESIUM HYDROXIDE SUSP 30 ML CUP PO SCH (20:07)
--- NOTE | 2016-09-19 22:48 | HHI.IDPN ---
Subjective Subjective Remarks Delayed entry: pt was seen around 1400 remains on vent FiO2 improved toleating trickle feeds (20) WBC remain high > 30 K Spputm growing a beltrán S Kleb pneumo No BM NG tub in place Antibiotics vancomycin meropenem Allergies: Coded Allergies: No Known Allergies (Unverified , 09/11/16) Objective . Vital Signs Date Time Temp Pulse Resp B/P Pulse Ox O2 Delivery O2 Flow Rate FiO2 09/19/16 21:06 96 50 09/19/16 20:00 113 09/19/16 20:00 50 09/19/16 20:00 99.0 113 21 151/58 96 09/19/16 18:00 109 09/19/16 16:47 97 50 09/19/16 16:00 99.8 103 18 150/60 97 09/19/16 16:00 50 09/19/16 16:00 108 09/19/16 14:46 96 50 09/19/16 14:00 104 09/19/16 12:00 99.3 106 12 152/62 96 09/19/16 12:00 106 09/19/16 12:00 50 09/19/16 11:54 96 50 09/19/16 10:00 98 09/19/16 09:41 97 50 09/19/16 08:10 97 50 09/19/16 08:00 50 09/19/16 08:00 98.2 112 18 175/61 97 09/19/16 08:00 112 09/19/16 06:00 98 09/19/16 04:00 60 09/19/16 04:00 98.8 98 11 152/58 96 09/19/16 04:00 100 100 09/19/16 04:00 98 09/19/16 03:45 95 60 09/19/16 02:00 103 09/19/16 00:00 98.9 106 11 143/53 98 09/19/16 00:00 106 09/19/16 00:00 60 09/18/16 09/18/16 09/19/16 15:00 23:00 07:00 Intake Total 805 ml 1118 ml 1132 ml Output Total 900 ml 455 ml 380 ml Balance -95 ml 663 ml 752 ml Intake IV Total 605 ml 1118 ml 532 ml Other 200 ml 600 ml Output Urine Total 800 ml 425 ml 350 ml Stool Total 0 ml Gastric Drainage Total 100 ml 0 ml 0 ml Chest Tube Drainage Total 0 ml 30 ml 30 ml # Bowel Movements 0 0 . Laboratory Tests Test 09/18/16 09/19/16 04:35 05:05 White Blood Count 30.5 TH/MM3 30.2 TH/MM3 Red Blood Count 2.99 MIL/MM3 3.16 MIL/MM3 Hemoglobin 8.9 GM/DL 9.2 GM/DL Hematocrit 27.4 % 29.1 % Mean Corpuscular Volume 91.6 FL 92.0 FL Mean Corpuscular Hemoglobin 29.7 PG 29.0 PG Mean Corpuscular Hemoglobin 32.4 % 31.5 % Concent Red Cell Distribution Width 16.3 % 16.7 % Platelet Count 429 TH/MM3 531 TH/MM3 Mean Platelet Volume 8.7 FL 8.9 FL Neutrophils (%) (Auto) 75.3 % % Lymphocytes (%) (Auto) 7.5 % % Monocytes (%) (Auto) 14.5 % % Eosinophils (%) (Auto) 2.1 % % Basophils (%) (Auto) 0.6 % % Neutrophils # (Auto) 23.0 TH/MM3 TH/MM3 Lymphocytes # (Auto) 2.3 TH/MM3 TH/MM3 Monocytes # (Auto) 4.4 TH/MM3 TH/MM3 Eosinophils # (Auto) 0.6 TH/MM3 TH/MM3 Basophils # (Auto) 0.2 TH/MM3 TH/MM3 CBC Comment AUTO DIFF AUTO DIFF Differential Total Cells 100 100 Counted Neutrophils % (Manual) 72 % 75 % Band Neutrophils % 4 % 6 % Lymphocytes % 10 % 3 % Monocytes % 8 % 12 % Eosinophils % 2 % Basophils % 1 % Neutrophils # (Manual) 24.1 TH/MM3 25.7 TH/MM3 Metamyelocytes 2 % Myelocytes 1 % 4 % Nucleated Red Blood Cells 1 /100 WBC 1 /100 WBC Differential Comment FINAL DIFF FINAL DIFF MANUAL MANUAL Platelet Estimate HIGH HIGH Platelet Morphology Comment NORMAL NORMAL Red Cell Morphology Comment NORMAL Laboratory Tests Test 09/18/16 09/19/16 04:35 05:05 Sodium Level 151 MEQ/L 149 MEQ/L Potassium Level 3.9 MEQ/L 4.2 MEQ/L Chloride Level 113 MEQ/L 114 MEQ/L Carbon Dioxide Level 28.0 MEQ/L 26.2 MEQ/L Anion Gap 10 MEQ/L 9 MEQ/L Blood Urea Nitrogen 69 MG/DL 89 MG/DL Creatinine 1.62 MG/DL 1.83 MG/DL Estimat Glomerular Filtration 44 ML/MIN 38 ML/MIN Rate Random Glucose 171 MG/DL 192 MG/DL Calcium Level 7.9 MG/DL 8.3 MG/DL Phosphorus Level 4.2 MG/DL Magnesium Level 2.8 MG/DL 3.1 MG/DL Total Bilirubin 1.4 MG/DL 1.4 MG/DL Aspartate Amino Transf 31 U/L 35 U/L (AST/SGOT) Alanine Aminotransferase 26 U/L 26 U/L (ALT/SGPT) Alkaline Phosphatase 103 U/L 129 U/L Total Protein 5.7 GM/DL 6.1 GM/DL Albumin 2.4 GM/DL 2.5 GM/DL Microbiology Date/Time Procedure Status Source Growth 09/17/16 12:25 Gram Stain - Final Complete Sputum Endotracheal 09/17/16 12:25 Sputum Culture - Final Complete Klebsiella Pneumoniae 09/17/16 12:25 Urine Culture - Final Complete Urine Catheterized Urine Marlin Albicans 09/17/16 13:20 Aerobic Blood Culture - Preliminary Resulted Blood Line NO GROWTH IN 2 DAYS 09/17/16 13:20 Anaerobic Blood Culture - Preliminary Resulted Blood Line NO GROWTH IN 2 DAYS 09/17/16 13:31 Aerobic Blood Culture - Preliminary Resulted Blood Peripheral NO GROWTH IN 2 DAYS 09/17/16 13:31 Anaerobic Blood Culture - Preliminary Resulted Blood Peripheral NO GROWTH IN 2 DAYS 09/19/16 01:42 Aerobic Blood Culture Received Blood Peripheral Pending 09/19/16 01:42 Anaerobic Blood Culture Received Blood Peripheral Pending 09/19/16 02:13 Aerobic Blood Culture Received Blood Peripheral Pending 09/19/16 02:13 Anaerobic Blood Culture Received Blood Peripheral Pending Imaging Last Impressions Head CT 09/19/16 06 Signed Impressions: Service Date/Time: August 04:21 - CONCLUSION: Evolving 13 mm area of intraparenchymal hemorrhage in the right temporal lobe with some surrounding edema. Subarachnoid hemorrhage bilaterally in the sylvian fissures and some ventricular hemorrhage on the left. Gilbert Jay MD Chest X-Ray 09/19/16 0600 Signed Impressions: Service Date/Time: August 04:51 - CONCLUSION: Persistent consolidation left lung base atelectasis versus infiltrate. ET tube in good position. Gilbert Jay MD Abdomen X-Ray 09/16/16 0000 Signed Impressions: Service Date/Time: Friday, September 16, 2016 13:35 - CONCLUSION: No radiopaque foreign body or instrument identified. Degenerative changes throughout the lumbar and lower thoracic spine. Josh Sampson MD Thoracic Spine CT 09/12/161622 Signed Impressions: Service Date/Time: August 07:14 - CONCLUSION: Multiple left-sided rib fractures. Intact thoracic spine without evidence of listhesis , fracture or soft tissue abnormality. Bilateral pleural effusions with underlying airspace consolidation. Farooq Kirby MD Lumbar Spine CT 09/12/161622 Signed Impressions: Service Date/Time: August 07:14 - CONCLUSION: Image quality is less than optimal secondary to noise. Therefore, spinal canal is not well-visualized. There are degenerative changes present, as detailed above, with areas canal and neuroforaminal stenosis. No acute lumbar spine abnormality is identified. Antonio Brown MD Chest CT 09/12/161622 Signed Impressions: Service Date/Time: August 07:14 - CONCLUSION: 1. Small left pneumothorax with a large bore left chest tube in place posteriorly in the superior left hemithorax. 2. Small bilateral pleural effusions with compressive/dependent atelectasis and suspected consolidation in the left upper lobe which may represent contusion. 3. Multiple fractures are present including a comminuted displaced medial left clavicle fracture and fractures of the left second through ninth ribs. 4. Ruptured spleen. Serpiginous high density structures in the splenic bed likely represents surgical packing material/sponges. Suggest correlation with the clinical history. There are retroperitoneal blood products in the left upper quadrant and there is an open wound along the anterior abdominal wall. Antonio Brown MD Cervical Spine CT 09/12/161622 Signed Impressions: Service Date/Time: August 07:12 - CONCLUSION: 1. No acute cervical spine abnormalities identified. 2. The visualized inferior aspect of the head documents a 2.8 cm hemorrhagic contusion in the right temporal lobe along with a trace blood products layering in the left occipital horn. Antonio Brown MD Abdomen/Pelvis CT 09/12/16 1623 Signed Impressions: Service Date/Time: August 07:14 - CONCLUSION: 1. There is an open wound on the anterior abdominal wall in the midline through which bowel extends. Due to the reconstructed field of view we are unable to fully visualize the bowel extending into the open wound. Secondary to patient condition we are unable to repeat the examination with more appropriate scanner settings. 2. Ruptured spleen. There is little normal splenic tissue visualized. Multiple surgical sponges are present in the splenic bed in the left upper quadrant. There is a small amount of blood products in the left upper quadrant and left upper quadrant retroperitoneum. 3. 2 additional sponges are present in the midline pelvis and anterior right lower quadrant. 4. The left second through ninth ribs are fractured. Antonio Brown MD Knee X-Ray 09/12/16 0000 Signed Impressions: Service Date/Time: August 21:33 - CONCLUSION: 1. Limited two-view exam. 2. No acute fracture or malalignment. 3. Left tissue swelling. Jamshid Pérez MD Pelvis X-Ray 09/11/16 0000 Signed Impressions: Service Date/Time: Sunday, September 11, 2016 16:03 - CONCLUSION: No acute disease. Wild Hinton MD Physical Exam CONSTITUTIONAL/GENERAL: This is a morbidly obese sedated intubated patient, in no apparent distress. TUBES/LINES/DRAINS: SKIN: No jaundice, , or lesions. Skin temperature appropriate. Not diaphoretic. Raised pink papular rash b/l thighs HEAD: Atraumatic. Normocephalic. EYES: Pupils equal and round and reactive. Extraocular motions intact. No scleral icterus. No injection or drainage. Fundi not examined. ENT: Hearing not tested (sedated heavily). Nose without bleeding or purulent drainage. Orally intubated CARDIOVASCULAR: Regular rate and rhythm without murmurs, gallops, or rubs. No JVD. Peripheral pulses symmetric. RESPIRATORY/CHEST: Symmetric, unlabored respirations. Clear to auscultation. Breath sounds equal diminished bibasilary . No wheezes, rales, or rhonchi. L sided CT inplace with serosang dc GASTROINTESTINAL: Abdomen is less distended, less tense retention sutures in place intact no BS GENITOURINARY: Without palpable bladder distension. Forrest catheter in place with clear yellow urine MUSCULOSKELETAL: Extremities without clubbing, cyanosis, + tight 2+-3 + edema. No mottling or clubbing. 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 significance - dc vanco - dc meropenem - restart zosyn for Kleb pneumo PNA, possible intraabd infection - fu blood clx - further rec's per clx and clinical course Herlinda German RN, MD Sep 19, 2016 22:48
[2016-09-19] MEDS: PIPERACIL-TAZO 3.375 GM PREMIX 50 ML IV SCH (23:08)
[2016-09-20] VITALS (17 sets, daily range): BP systolic 100–159; BP diastolic 54–72; PULSE 99–117; RESP 13–23; TEMP 98.9–100.2; O2SAT 94–100
[2016-09-20] MEDS: INSULIN ASPART SUPPLEMENTAL SCALE SQ SCH ×8 (01:00→22:34)
[2016-09-20] MEDS: CHLORHEXIDINE GLUCONATE 2 % 1 PACK (2 CLOTHS) TOP SCH (04:00)
[2016-09-20] MEDS: hydrALAZINE HCL 20 MG/ML VIAL IV PUSH SCH ×5 (04:00→21:05)
[2016-09-20] MEDS: METOPROLOL TARTRATE 5 MG/5 ML VIAL IV PUSH SCH ×6 (04:00→21:04)
[2016-09-20 04:34] LABS: AUTOMATED NEUTROPHIL # 24.9 TH/MM3 (1.8-7.7); BASOPHIL # 0.1 TH/MM3 (0-0.2); BASOPHIL % 0.2 % (0.0-2.0); EOSINOPHIL # 0.5 TH/MM3 (0-0.4); EOSINOPHIL % 1.5 % (0.0-4.0); HEMATOCRIT 29.5 % (39.0-51.0); LYMPH % 5.9 % (9.0-44.0); LYMPHOCYTE # 1.8 TH/MM3 (1.0-4.8); MEAN CELL VOLUME 90.5 FL (80.0-100.0); MEAN CORPUSCULAR HEMOGLOBIN 29.6 PG (27.0-34.0); MEAN CORPUSCULAR HGB CONC 32.7 % (32.0-36.0); MONO % 11.8 % (0.0-8.0); NEUT % 80.6 % (16.0-70.0); PLATELET COUNT 585 TH/MM3 (150-450); RED BLOOD COUNT 3.26 MIL/MM3 (4.50-5.90); RED CELL DISTRIBUTION WIDTH 16.7 % (11.6-17.2); WHITE BLOOD COUNT 30.9 TH/MM3 (4.0-11.0)
[2016-09-20 04:36] LABS: HEMO FLAGS AUTO DIFF
[2016-09-20 05:01] LABS: ALT (GPT) 29 U/L (12-78); ANION GAP 9 MEQ/L (5-15); AST (GOT) 43 U/L (15-37); BLOOD UREA NITROGEN 97 MG/DL (7-18); CHLORIDE 115 MEQ/L (98-107); GLOMERULAR FILTRATION RATE 41 ML/MIN (>89); MAGNESIUM 3.2 MG/DL (1.5-2.5); POTASSIUM 3.8 MEQ/L (3.5-5.1); SODIUM (NA) 151 MEQ/L (136-145)
[2016-09-20 05:02] LABS: ALKALINE PHOSPHATASE 158 U/L (45-117); TOTAL BILIRUBIN ADULT 1.7 MG/DL (0.2-1.0)
[2016-09-20 05:11] LABS: BANDS 9 % (0-6); CORRECTED NUCLEATED RBC 5 /100 WBC (0-0); EOSINOPHILS 1 % (0-4); METAMYELOCYTES 2 % (0-1); MYELOCYTES 1 % (0-0); NEUTROPHIL # MANUAL DIFF 27.8 TH/MM3 (1.8-7.7); POLYS (SEG NEUTROPHILS) 78 % (16-70); WBC DIFF SAMPLE 100
[2016-09-20 05:12] LABS: PLATELET ESTIMATE SMEAR HIGH (NORMAL); PLATELET MORPHOLOGY NORMAL (NORMAL); SCAN/DIFF FINAL DIFF MANUAL; TOXIC GRANULATION 1+ (NORMAL)
[2016-09-20 05:17] LABS: BLOOD GAS BASE EXCESS 0.5 mmol/L (-2-2); BLOOD GAS CARBOXYHEMOGLOBIN 1.5 % (0-4); BLOOD GAS HCO3 24 mmol/L (22-26); BLOOD GAS METHEMOGLOBIN 0.9 % (0-2); BLOOD GAS O2 HGB SATURATION 95 % (90-100); BLOOD GAS PCO2 36 mmHg (38-42); BLOOD GAS PO2 88 mmHg (61-120); BLOOD GAS TOTAL HGB 9.7 G/DL (12.0-16.0); CRITICAL VALUE NO; OXYGEN DEVICE VENTILATOR; TEMP CORR TO 98.6
[2016-09-20 05:18] LABS: FIO2 50 %; VENT SETTINGS BILEVEL
[2016-09-20] MEDS: PIPERACIL-TAZO 3.375 GM PREMIX 50 ML IV SCH ×4 (05:18→22:34)
[2016-09-20] MEDS: FREE WATER G-TUBE SCH ×3 (05:18→17:11)
[2016-09-20 05:19] LABS: DRAW SITE ART LINE; STAT NO
--- NOTE | 2016-09-20 06:00 | RADRPT ---
EXAM DATE/TIME: 09/20/2016 05:20 [facility] COMPARISON: CHEST SINGLE AP, September 19, 2016, 4:51. INDICATIONS : Shortness of breath. MEDICAL HISTORY : None. SURGICAL HISTORY : None. ENCOUNTER: Initial ACUITY: 1 day PAIN SCORE: Non-responsive. LOCATION: chest FINDINGS: A single portable frontal view of the chest shows no interval change. Left basilar consolidation is u nchanged. Linear atelectasis within the right midlung. No effusions. Heart is normal in size. Tip of the endotracheal tube 2 cm cephalad to the robin. Tip of the nasogastric tube courses off the inferi or margin of the film. Left thoracostomy tube without pneumothorax. CONCLUSION: Unchanged left basilar consolidation. 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., MD on September 20, 2016 at 5:58 Board Certified Radiologist. This report was verified electronically.
[2016-09-20] MEDS: CHLORHEXIDINE 0.12% (ORAL KIT) 15 ML CUP MT SCH ×2 (08:00→20:00)
[2016-09-20] MEDS: LACTULOSE SYRUP 20 GM/30 ML CUP PO SCH (08:22)
[2016-09-20] MEDS: FAMOTIDINE 20 MG/2 ML VIAL IV PUSH SCH ×2 (08:23→20:16)
[2016-09-20] MEDS: INSULIN DETEMIR 100 UNITS/ML VIAL SQ SCH ×2 (08:23→20:16)
[2016-09-20] MEDS: BACITRACIN TOP OINT 15 GM TUBE TOPICAL SCH ×2 (08:23→20:36)
[2016-09-20] MEDS ORDERED: LACTATED RINGER'S 1000 ML INJ 1,000 ML IV ONE (08:45)
[2016-09-20] MEDS: SODIUM CHLORIDE 0.9% FLUSH 10 ML FLUSH IV FLUSH SCH ×2 (09:00→20:15)
[2016-09-20] MEDS: DOCUSATE SODIUM 100 MG CAP PO SCH ×2 (09:00→20:15)
[2016-09-20] MEDS: PROPOFOL 1000 MG/100 ML INJ 100 ML IV SCH (09:20)
[2016-09-20] MEDS ORDERED: LIDOCAINE 1%/EPINEPHrine 1:100,000 SOLN 20 ML VIAL ONE (10:39)
--- NOTE | 2016-09-20 11:16 | HHI.NSPN ---
(Tomi Mckeon) Note Status Status: Progress Note (Tomi Mckeon) Interval History Interval History Patient continues to have persistent decreased neurological status in spite of stable contusion upon imaging yesterday. (Tomi Mckeon) Labs, Micro, & Vital Signs Constitutional Vital Signs Date Time Temp Pulse Resp B/P Pulse Ox O2 Delivery O2 Flow Rate FiO2 09/20/16 06:00 112 09/20/16 04:11 95 50 09/20/16 04:00 99.1 110 20 100/72 95 09/20/16 04:00 50 09/20/16 04:00 110 09/20/16 02:00 114 09/20/16 00:19 96 50 09/20/16 00:00 99.7 110 13 144/57 96 09/20/16 00:00 110 09/20/16 00:00 50 09/19/16 22:00 114 09/19/16 21:06 96 50 09/19/16 20:00 113 09/19/16 20:00 50 09/19/16 20:00 99.0 113 21 151/58 96 09/19/16 18:00 109 09/19/16 16:47 97 50 09/19/16 16:00 99.8 103 18 150/60 97 09/19/16 16:00 50 09/19/16 16:00 108 09/19/16 14:46 96 50 09/19/16 14:00 104 09/19/16 12:00 99.3 106 12 152/62 96 09/19/16 12:00 106 09/19/16 12:00 50 09/19/16 11:54 96 50 09/20/16 07:00 Intake Total 2244 ml Output Total 2575 ml Balance -331 ml (Tomi Mckeon) Review of Systems/Exam ROS Unable to obtain ROS due to patient's mental status and sedation. Exam Patient with light sedation. No eye opening, PERRLA 3 mm bilaterally & conjugate. Face is symmetrical. No response to noxious stimuli. (Tomi Mckeon) Medications Current Medications Current Medications Medications (Trade) Dose Ordered Sig/Wally Route Start Time Stop Time Status Last Admin (NS Flush) 2 ml UNSCH PRN IV FLUSH 09/11/16 20:00 (NS Flush) 2 ml BID IV FLUSH 09/11/16 21:00 09/19/16 20:06 (Pepcid Inj) 20 mg Q12HR IV PUSH 09/11/16 21:00 09/20/16 08:23 Miscellaneous Information 1 Q361D XX 09/11/16 20:00 09/11/16 22:55 (Chlorhexidine 2% Cloth) Taper DAILY@04 TOP 09/12/16 04:00 09/08/17 03:59 09/20/16 04:00 Chlorhexidine Gluconate 3 pack 3 pack UNSCH PRN TOP 09/11/16 20:00 (fentaNYL DRIP) 250 ml @ 0 mls/hr TITRATE IV 09/11/16 20:00 09/19/16 20:13 (Brethine Inj) 1 mg UNSCH PRN SQ 09/11/16 20:45 Chlorhexidine Gluconate 15 ml 15 ml BID@08,20 MT 09/12/16 08:00 09/20/16 08:00 Propofol 100 ml @ 0 mls/hr TITRATE IV 09/11/16 20:45 09/20/16 09:20 Potassium Chloride 100 ml @ 50 mls/hr Q2H PRN IV 09/12/16 07:45 09/16/16 09:14 (KCl 20 Meq Premix Inj) 100 ml @ 50 mls/hr Q2H PRN IV 09/12/16 07:45 Potassium Bicarb/ Potassium Chloride 50 meq 50 meq UNSCH PRN PO 09/12/16 07:45 Potassium Chloride 100 ml @ 25 mls/hr UNSCH PRN IV 09/12/16 07:45 09/16/16 17:29 Potassium Chloride 100 ml @ 50 mls/hr Q2H PRN IV 09/12/16 07:45 (Magnesium Sulfate Inj/NS Inj) 100 ml @ 50 mls/hr UNSCH PRN IV 09/12/16 07:45 Magnesium Oxide 800 mg 800 mg UNSCH PRN PO 09/12/16 07:45 (Magnesium Sulfate Inj/NS Inj) 100 ml @ 50 mls/hr UNSCH PRN IV 09/12/16 07:45 Potassium Phosphate 2000 mg 2,000 mg Q4H PRN PO 09/12/16 07:45 (Sodium Phosphate Inj/NS 250 ml Inj) 250 ml @ 42 mls/hr UNSCH PRN IV 09/12/16 07:45 09/16/16 01:29 Potassium Phosphate 2000 mg 2,000 mg UNSCH PRN PO/TUBE 09/12/16 07:45 (Potassium Phosphate Inj/NS 250 ml Inj) 260 ml @ 42 mls/hr UNSCH PRN IV 09/12/16 07:45 (Baciguent Oint) 1 applic Q12HR TOPICAL 09/12/16 12:00 09/20/16 08:23 (D50w (Vial) Inj) 25 ml UNSCH PRN IV PUSH 09/12/16 18:00 (Levemir Inj) 5 units Q12HR SQ 09/15/16 11:30 09/20/16 08:23 (NovoLOG SUPPLEMENTAL SCALE) 1 Q3HR SQ 09/15/16 14:00 09/20/16 05:00 (Free Water) 200 ml Q6HR G-TUBE 09/17/16 12:00 09/20/16 05:18 (Lopressor Inj) 5 mg Q6H IV PUSH 09/19/16 10:00 09/20/16 08:22 (Apresoline Inj) 10 mg Q6H IV PUSH 09/19/16 10:00 09/20/16 08:22 (Colace) 100 mg BID PO 09/19/16 21:00 09/19/16 20:05 (Milk Of Magnesia Liq) 30 ml HS PO 09/19/16 21:00 Lactulose 30 ml 30 ml DAILY PO 09/19/16 10:00 09/20/16 08:22 (Zosyn 3.375 Gm Premix) 50 ml @ 100 mls/hr Q6H IV 09/19/16 23:00 09/20/16 05:18 (Tomi Mckeon) Medical Decision Making MDM Remarks Traumatic brain injury Stable contusion w/o mass effect per CT 09/19 Decreased neurological status (Tomi Mckeon) Plan Plan Remarks Continue close monitoring of neuro status & vital signs Critical care management per [facility] sedation & ventilation per [facility] Tra[facility] EEG to evaluate for subclinical seizures (Tomi Mckeon) Attending Statement I have personally seen and examined the patient on the date of this note. Pertinent documentation and study results have been reviewed by the undersigned. I have personally developed the treatment plan and performed medical decision making. Agree with findings, exam, and treatment plan as noted above. Remains generally less responsive than last week. Follow-up CT scan head this week satisfactory. EEG requested impending (Mamadou Cottrell MD) Tomi Mckeon Sep 20, 2016 11:16 Mamadou Cottrell MD Sep 20, 2016 19:51 Intake Total 2244 ml Output Total 2575 ml Balance -331 ml Review of Systems/Exam ROS Unable to obtain ROS due to patient's mental status and sedation. Exam Patient with light sedation. No eye opening, PERRLA 3 mm bilaterally & conjugate. Face is symmetrical. No response to noxious stimuli. Medications Current Medications Current Medications Medications (Trade) Dose Ordered Sig/Wally Route Start Time Stop Time Status Last Admin (NS Flush) 2 ml UNSCH PRN IV FLUSH 09/11/16 20:00 (NS Flush) 2 ml BID IV FLUSH 09/11/16 21:00 09/19/16 20:06 (Pepcid Inj) 20 mg Q12HR IV PUSH 09/11/16 21:00 09/20/16 08:23 Miscellaneous Information 1 Q361D XX 09/11/16 20:00 09/11/16 22:55 (Chlorhexidine 2% Cloth) Taper DAILY@04 TOP 09/12/16 04:00 09/08/17 03:59 09/20/16 04:00 Chlorhexidine Gluconate 3 pack 3 pack UNSCH PRN TOP 09/11/16 20:00 (fentaNYL DRIP) 250 ml @ 0 mls/hr TITRATE IV 09/11/16 20:00 09/19/16 20:13 (Brethine Inj) 1 mg UNSCH PRN SQ 09/11/16 20:45 Chlorhexidine Gluconate 15 ml 15 ml BID@08,20 MT 09/12/16 08:00 09/20/16 08:00 Propofol 100 ml @ 0 mls/hr TITRATE IV 09/11/16 20:45 09/20/16 09:20 Potassium Chloride 100 ml @ 50 mls/hr Q2H PRN IV 09/12/16 07:45 09/16/16 09:14 (KCl 20 Meq Premix Inj) 100 ml @ 50 mls/hr Q2H PRN IV 09/12/16 07:45 Potassium Bicarb/ Potassium Chloride 50 meq 50 meq UNSCH PRN PO 09/12/16 07:45 Potassium Chloride 100 ml @ 25 mls/hr UNSCH PRN IV 09/12/16 07:45 09/16/16 17:29 Potassium Chloride 100 ml @ 50 mls/hr Q2H PRN IV 09/12/16 07:45 (Magnesium Sulfate Inj/NS Inj) 100 ml @ 50 mls/hr UNSCH PRN IV 09/12/16 07:45 Magnesium Oxide 800 mg 800 mg UNSCH PRN PO 09/12/16 07:45 (Magnesium Sulfate Inj/NS Inj) 100 ml @ 50 mls/hr UNSCH PRN IV 09/12/16 07:45 Potassium Phosphate 2000 mg 2,000 mg Q4H PRN PO 09/12/16 07:45 (Sodium Phosphate Inj/NS 250 ml Inj) 250 ml @ 42 mls/hr UNSCH PRN IV 09/12/16 07:45 09/16/16 01:29 Potassium Phosphate 2000 mg 2,000 mg UNSCH PRN PO/TUBE 09/12/16 07:45 (Potassium Phosphate Inj/NS 250 ml Inj) 260 ml @ 42 mls/hr UNSCH PRN IV 09/12/16 07:45 (Baciguent Oint) 1 applic Q12HR TOPICAL 09/12/16 12:00 09/20/16 08:23 (D50w (Vial) Inj) 25 ml UNSCH PRN IV PUSH 09/12/16 18:00 (Levemir Inj) 5 units Q12HR SQ 09/15/16 11:30 09/20/16 08:23 (NovoLOG SUPPLEMENTAL SCALE) 1 Q3HR SQ 09/15/16 14:00 09/20/16 05:00 (Free Water) 200 ml Q6HR G-TUBE 09/17/16 12:00 09/20/16 05:18 (Lopressor Inj) 5 mg Q6H IV PUSH 09/19/16 10:00 09/20/16 08:22 (Apresoline Inj) 10 mg Q6H IV PUSH 09/19/16 10:00 09/20/16 08:22 (Colace) 100 mg BID PO 09/19/16 21:00 09/19/16 20:05 (Milk Of Magnesia Liq) 30 ml HS PO 09/19/16 21:00 Lactulose 30 ml 30 ml DAILY PO 09/19/16 10:00 09/20/16 08:22 (Zosyn 3.375 Gm Premix) 50 ml @ 100 mls/hr Q6H IV 09/19/16 23:00 09/20/16 05:18 Medical Decision Making MDM Remarks Traumatic brain injury Stable contusion w/o mass effect per CT 09/19 Decreased neurological status Plan Plan Remarks Continue close monitoring of neuro status & vital signs Critical care management per [facility] Tra[facility] sedation & ventilation per Surgical [facility] Trauma EEG to evaluate for subclinical seizures Tomi Mckeon Sep 20, 2016 11:16 Specimen To Be DONNIE 09/17/16 In Process Collected 11:30 Free Water (Free MED 09/17/16 In Process Water) 12:00 Vancomycin Inj MED 09/17/16 Complete (Vancomycin Inj) 15:00 Diet Npo DIET 09/17/16 Complete Dinner Calcium Chloride Inj MED 09/11/16 Complete (Calcium Chloride I 12:00 Vasopressin Inj MED 09/11/16 Complete (Pitressin Inj) 12:00 Sodium Bicarbonate MED 09/11/16 Complete 8.4% Inj (Sodium Bica 12:00 Phenyleph/Ns 1000 MED 09/11/16 Complete Mcg/10ml Syr (Neosynep 12:00 Epinephrine MED 09/11/16 Complete (1:10,000) Inj 12:00 Lactated Ringer's MED 09/11/16 Complete 1000 Ml Inj (Lr 1000 M 12:00 Sodium Chlor 0.9% MED 09/11/16 Complete 1000 Ml Inj (Ns 1000 M 12:00 Magnesium (Mg) LAB 09/19/16 Complete 05:00 Complete Blood Count LAB 09/19/16 Complete With Diff 05:00 Chest, Single Ap RADDIAG 09/19/16 Resulted 06:00 Comprehensive LAB 09/19/16 Complete Metabolic Panel 05:00 (Hub Use Only)Inp Phy CONS 09/18/16 Transmitted Cons/Ref Arterial Blood Gas LAB 09/19/16 Complete (Abg) 06:00 Resp Request For RSP 09/18/16 Logged Service Arterial Blood Gas LAB 09/18/16 Complete (Abg) 10:33 Arterial Blood Gas LAB 09/18/16 Complete (Abg) 13:00 Ct Brain W/O Iv RADCT 09/19/16 Resulted Contrast(Rout) 06:00 Asp: Other Excep MED 09/18/16 Complete Documentation (Asp 23:15 Asp: Id Consult (Asp MED 09/18/16 Complete Crit: Infectious Di 23:15 Misc Pharmacy MED 09/18/16 Complete Information (Misc 23:15 Meropenem Inj (Merrem MED 09/19/16 Complete Inj) 00:00 Blood Culture MYRIAM 09/19/16 In Process 00:20 Labetalol Inj MED 09/19/16 Complete (Trandate Inj) 08:15 Magnesium (Mg) LAB 09/20/16 Complete 05:00 Complete Blood Count LAB 09/20/16 Complete With Diff 05:00 Chest, Single Ap RADDIAG 09/20/16 Resulted 06:00 Arterial Blood Gas LAB 09/20/16 Complete (Abg) 06:00 Comprehensive LAB 09/20/16 Complete Metabolic Panel 05:00 Phosphorus (Po4) LAB 09/20/16 Complete 05:00 Metoprolol Tartrate MED 09/19/16 In Process Inj (Lopressor Inj) 10:00 Hydralazine Inj MED 09/19/16 In Process (Apresoline Inj) 10:00 Arterial Blood Gas LAB 09/19/16 Complete (Abg) 11:00 Docusate Sodium MED 09/19/16 In Process (Colace) 21:00 Magnesium Hydroxide MED 09/19/16 In Process Liq (Milk Of Magnesi 21:00 Lactulose Liq MED 09/19/16 In Process (Lactulose Liq) 10:00 Diet Tube Feed Only DIET 09/19/16 Transmitted Breakfast Tube Feeding DONNIE 09/19/16 In Process 09:58 Misc. Nursing MED 09/19/16 Complete Information 14:45 Vancomycin Trough LAB 09/19/16 Complete 14:45 Equip, Feeding Pump SPD 09/19/16 Logged Use Of 11:36 Replace Forrest DONNIE 09/19/16 In Process 13:35 Misc. Nursing MED 09/20/16 Complete Information 14:45 Vancomycin Inj MED 09/20/16 Complete (Vancomycin Inj) 15:00 Piperacil-Tazo 3.375 MED 09/19/16 In Process Gm Premix (Zosyn 3. 23:00 Magnesium (Mg) LAB 09/21/16 Verified 05:00 Complete Blood Count LAB 09/21/16 Verified With Diff 05:00 Chest, Single Ap RADDIAG 09/21/16 Verified 06:00 Arterial Blood Gas LAB 09/21/16 Verified (Abg) 06:00 Comprehensive LAB 09/21/16 Verified Metabolic Panel 05:00 Phosphorus (Po4) LAB 09/21/16 Verified 05:00 ^ Chest Tube DONNIE 09/20/16 In Process 09:30 Lidocai-Epi MED 09/20/16 Complete 1%-1:100,000 Inj 10:39 Portable Eeg EEG 09/20/16 Logged Vital Signs Date Time Temp Pulse Resp B/P Pulse Ox O2 Delivery O2 Flow Rate FiO2 09/20/16 06:00 112 09/20/16 04:11 95 50 09/20/16 04:00 99.1 110 20 100/72 95 09/20/16 04:00 50 09/20/16 04:00 110 09/20/16 02:00 114 09/20/16 00:19 96 50 09/20/16 00:00 99.7 110 13 144/57 96 09/20/16 00:00 110 09/20/16 00:00 50 09/19/16 22:00 114 09/19/16 21:06 96 50 09/19/16 20:00 113 09/19/16 20:00 50 09/19/16 20:00 99.0 113 21 151/58 96 09/19/16 18:00 109 09/19/16 16:47 97 50 09/19/16 16:00 99.8 103 18 150/60 97 09/19/16 16:00 50 09/19/16 16:00 108 09/19/16 14:46 96 50 09/19/16 14:00 104 09/19/16 12:00 99.3 106 12 152/62 96 09/19/16 12:00 106 09/19/16 12:00 50 09/19/16 11:54 96 50 09/19/16 10:00 98 09/19/16 09:41 97 50 09/19/16 08:10 97 50 09/19/16 08:00 50 09/19/16 08:00 98.2 112 18 175/61 97 09/19/16 08:00 112 09/19/16 06:00 98 09/19/16 04:00 60 09/19/16 04:00 98.8 98 11 152/58 96 09/19/16 04:00 100 100 09/19/16 04:00 98 09/19/16 03:45 95 60 09/19/16 02:00 103 09/19/16 00:00 98.9 106 11 143/53 98 09/19/16 00:00 106 09/19/16 00:00 60 09/18/16 22:00 95 09/18/16 21:23 95 60 09/18/16 20:00 99.4 107 11 146/59 95 09/18/16 20:00 60 09/18/16 20:00 107 09/18/16 18:00 104 09/18/16 17:49 95 60 09/18/16 16:00 99.0 112 22 157/58 97 09/18/16 16:00 70 09/18/16 16:00 112 09/18/16 14:25 96 60 09/18/16 14:00 104 09/18/16 12:00 70 09/18/16 12:00 99.5 117 19 145/59 95 09/18/16 12:00 117 09/18/16 11:32 95 70 09/18/16 10:00 109 09/18/16 09:35 94 70 09/18/16 09:30 70 09/18/16 08:15 97 70 09/18/16 08:00 89 09/18/16 08:00 99.1 89 18 121/54 95 09/18/16 08:00 80 09/18/16 06:00 99 09/18/16 04:08 94 80 09/18/16 04:00 80 09/18/16 04:00 99.0 92 20 120/52 94 09/18/16 04:00 92 09/18/16 02:00 96 09/18/16 01:16 93 80 09/18/16 00:00 94 09/18/16 00:00 99.2 94 18 120/52 95 09/18/16 00:00 80 09/17/16 22:12 95 80 09/17/16 22:00 94 09/17/16 20:27 96 80 09/17/16 20:00 96 09/17/16 20:00 99.6 96 20 132/54 95 09/17/16 20:00 80 09/17/16 18:00 96 09/17/16 17:06 94 80 09/17/16 16:00 80 09/17/16 16:00 99.6 99 18 119/52 94 09/17/16 16:00 99 09/17/16 14:00 99 09/17/16 12:00 106 09/17/16 12:00 99.5 106 18 124/52 95 09/17/16 12:00 80 Date Time Temp Pulse Resp B/P Pulse Ox O2 Delivery O2 Flow Rate FiO2 09/20/16 06:00 112 09/20/16 04:11 95 50 09/20/16 04:00 99.1 110 20 100/72 95 09/20/16 04:00 50 09/20/16 04:00 110 09/20/16 02:00 114 09/20/16 00:19 96 50 09/20/16 00:00 99.7 110 13 144/57 96 09/20/16 00:00 110 09/20/16 00:00 50 09/19/16 22:00 114 09/19/16 21:06 96 50 09/19/16 20:00 113 09/19/16 20:00 50 09/19/16 20:00 99.0 113 21 151/58 96 09/19/16 18:00 109 09/19/16 16:47 97 50 09/19/16 16:00 99.8 103 18 150/60 97 09/19/16 16:00 50 09/19/16 16:00 108 09/19/16 14:46 96 50 09/19/16 14:00 104 09/19/16 12:00 99.3 106 12 152/62 96 09/19/16 12:00 106 09/19/16 12:00 50 09/19/16 11:54 96 50 09/20/16 07:00 Intake Total 2244 ml Output Total 2575 ml Balance -331 ml Constitutional Vital Signs Date Time Temp Pulse Resp B/P Pulse Ox O2 Delivery O2 Flow Rate FiO2 09/20/16 06:00 112 09/20/16 04:11 95 50 09/20/16 04:00 99.1 110 20 100/72 95 09/20/16 04:00 50 09/20/16 04:00 110 09/20/16 02:00 114 09/20/16 00:19 96 50 09/20/16 00:00 99.7 110 13 144/57 96 09/20/16 00:00 110 09/20/16 00:00 50 09/19/16 22:00 114 09/19/16 21:06 96 50 09/19/16 20:00 113 09/19/16 20:00 50 09/19/16 20:00 99.0 113 21 151/58 96 09/19/16 18:00 109 09/19/16 16:47 97 50 09/19/16 16:00 99.8 103 18 150/60 97 09/19/16 16:00 50 09/19/16 16:00 108 09/19/16 14:46 96 50 09/19/16 14:00 104 09/19/16 12:00 99.3 106 12 152/62 96 09/19/16 12:00 106 09/19/16 12:00 50 09/19/16 11:54 96 50 09/20/16 07:00 Intake Total 2244 ml Output Total 2575 ml Balance -331 ml Review of Systems/Exam ROS Unable to obtain ROS due to patient's mental status and sedation. Exam Patient with light sedation. No eye opening, PERRLA 3 mm bilaterally & conjugate. Face is symmetrical. No response to noxious stimuli. Medications Current Medications Current Medications Medications (Trade) Dose Ordered Sig/Wally Route Start Time Stop Time Status Last Admin (NS Flush) 2 ml UNSCH PRN IV FLUSH 09/11/16 20:00 (NS Flush) 2 ml BID IV FLUSH 09/11/16 21:00 09/19/16 20:06 (Pepcid Inj) 20 mg Q12HR IV PUSH 09/11/16 21:00 09/20/16 08:23 Miscellaneous Information 1 Q361D XX 09/11/16 20:00 09/11/16 22:55 (Chlorhexidine 2% Cloth) Taper DAILY@04 TOP 09/12/16 04:00 09/08/17 03:59 09/20/16 04:00 Chlorhexidine Gluconate 3 pack 3 pack UNSCH PRN TOP 09/11/16 20:00 (fentaNYL DRIP) 250 ml @ 0 mls/hr TITRATE IV 09/11/16 20:00 09/19/16 20:13 (Brethine Inj) 1 mg UNSCH PRN SQ 09/11/16 20:45 Chlorhexidine Gluconate 15 ml 15 ml BID@08,20 MT 09/12/16 08:00 09/20/16 08:00 Propofol 100 ml @ 0 mls/hr TITRATE IV 09/11/16 20:45 09/20/16 09:20 Potassium Chloride 100 ml @ 50 mls/hr Q2H PRN IV 09/12/16 07:45 09/16/16 09:14 (KCl 20 Meq Premix Inj) 100 ml @ 50 mls/hr Q2H PRN IV 09/12/16 07:45 Potassium Bicarb/ Potassium Chloride 50 meq 50 meq UNSCH PRN PO 09/12/16 07:45 Potassium Chloride 100 ml @ 25 mls/hr UNSCH PRN IV 09/12/16 07:45 09/16/16 17:29 Potassium Chloride 100 ml @ 50 mls/hr Q2H PRN IV 09/12/16 07:45 (Magnesium Sulfate Inj/NS Inj) 100 ml @ 50 mls/hr UNSCH PRN IV 09/12/16 07:45 Magnesium Oxide 800 mg 800 mg UNSCH PRN PO 09/12/16 07:45 (Magnesium Sulfate Inj/NS Inj) 100 ml @ 50 mls/hr UNSCH PRN IV 09/12/16 07:45 Potassium Phosphate 2000 mg 2,000 mg Q4H PRN PO 09/12/16 07:45 (Sodium Phosphate Inj/NS 250 ml Inj) 250 ml @ 42 mls/hr UNSCH PRN IV 09/12/16 07:45 09/16/16 01:29 Potassium Phosphate 2000 mg 2,000 mg UNSCH PRN PO/TUBE 09/12/16 07:45 (Potassium Phosphate Inj/NS 250 ml Inj) 260 ml @ 42 mls/hr UNSCH PRN IV 09/12/16 07:45 (Baciguent Oint) 1 applic Q12HR TOPICAL 09/12/16 12:00 09/20/16 08:23 (D50w (Vial) Inj) 25 ml UNSCH PRN IV PUSH 09/12/16 18:00 (Levemir Inj) 5 units Q12HR SQ 09/15/16 11:30 09/20/16 08:23 (NovoLOG SUPPLEMENTAL SCALE) 1 Q3HR SQ 09/15/16 14:00 09/20/16 05:00 (Free Water) 200 ml Q6HR G-TUBE 09/17/16 12:00 09/20/16 05:18 (Lopressor Inj) 5 mg Q6H IV PUSH 09/19/16 10:00 09/20/16 08:22 (Apresoline Inj) 10 mg Q6H IV PUSH 09/19/16 10:00 09/20/16 08:22 (Colace) 100 mg BID PO 09/19/16 21:00 09/19/16 20:05 (Milk Of Magnesia Liq) 30 ml HS PO 09/19/16 21:00 Lactulose 30 ml 30 ml DAILY PO 09/19/16 10:00 09/20/16 08:22 (Zosyn 3.375 Gm Premix) 50 ml @ 100 mls/hr Q6H IV 09/19/16 23:00 09/20/16 05:18 Medical Decision Making MDM Remarks Traumatic brain injury Stable contusion w/o mass effect per CT 09/19 Decreased neurological status Plan Plan Remarks Continue close monitoring of neuro status & vital signs Critical care management per [facility] Trauma Wean sedation & ventilation per Surgical Historiography Teacher & Trauma EEG to evaluate for subclinical seizures Tomi Mckeon Sep 20, 2016 11:16
[2016-09-20] MEDS ORDERED: MIDAZOLAM HCL 5 MG/5 ML VIAL ONE (11:19)
[2016-09-20] MEDS ORDERED: FAMOTIDINE 20 MG/2 ML VIAL ONE (11:19)
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
[2016-09-20] MEDS ORDERED: fentaNYL CITRATE 250 MCG/5 ML AMP ONE (14:06)
[2016-09-20] MEDS ORDERED: PHARMACY ORDERED LAB ONE (14:45)
[2016-09-20] MEDS ORDERED: VANCOMYCIN INJ 1,500 MG in SODIUM CHLORID 0.9% 500 ML INJ 500 ML IV SCH (15:00)
[2016-09-20] MEDS: MAGNESIUM HYDROXIDE SUSP 30 ML CUP PO SCH (20:16)
[2016-09-20] MEDS: fentaNYL DRIP 250 ML IV SCH (20:17)
[2016-09-21] VITALS (17 sets, daily range): BP systolic 116–149; BP diastolic 49–69; PULSE 92–125; RESP 21–25; TEMP 99.4–100.8; O2SAT 92–96
[2016-09-21] MEDS: INSULIN ASPART SUPPLEMENTAL SCALE SQ SCH ×8 (01:19→23:24)
[2016-09-21] MEDS: CHLORHEXIDINE GLUCONATE 2 % 1 PACK (2 CLOTHS) TOP SCH (04:00)
[2016-09-21 04:41] LABS: AUTOMATED NEUTROPHIL # 22.5 TH/MM3 (1.8-7.7); BASOPHIL # 0.5 TH/MM3 (0-0.2); EOSINOPHIL # 0.1 TH/MM3 (0-0.4); EOSINOPHIL % 0.5 % (0.0-4.0); HEMATOCRIT 29.8 % (39.0-51.0); LYMPH % 5.2 % (9.0-44.0); LYMPHOCYTE # 1.4 TH/MM3 (1.0-4.8); MEAN CELL VOLUME 91.9 FL (80.0-100.0); MEAN CORPUSCULAR HGB CONC 31.5 % (32.0-36.0); MONO % 11.9 % (0.0-8.0); NEUT % 80.4 % (16.0-70.0); PLATELET COUNT 525 TH/MM3 (150-450); RED BLOOD COUNT 3.24 MIL/MM3 (4.50-5.90); WHITE BLOOD COUNT 27.9 TH/MM3 (4.0-11.0)
[2016-09-21] MEDS: METOPROLOL TARTRATE 5 MG/5 ML VIAL IV PUSH SCH ×4 (04:41→21:32)
[2016-09-21] MEDS: PROPOFOL 1000 MG/100 ML INJ 100 ML IV SCH (04:41)
[2016-09-21] MEDS: PIPERACIL-TAZO 3.375 GM PREMIX 50 ML IV SCH ×4 (04:41→23:23)
[2016-09-21] MEDS: hydrALAZINE HCL 20 MG/ML VIAL IV PUSH SCH ×4 (04:45→21:31)
[2016-09-21 05:01] LABS: HEMO FLAGS AUTO DIFF
[2016-09-21 05:06] LABS: ALKALINE PHOSPHATASE 171 U/L (45-117); ALT (GPT) 30 U/L (12-78); ANION GAP 7 MEQ/L (5-15); AST (GOT) 40 U/L (15-37); BICARBONATE 27.6 MEQ/L (21.0-32.0); BLOOD UREA NITROGEN 107 MG/DL (7-18); CHLORIDE 117 MEQ/L (98-107); GLOMERULAR FILTRATION RATE 35 ML/MIN (>89); MAGNESIUM 3.4 MG/DL (1.5-2.5); SODIUM (NA) 152 MEQ/L (136-145); TOTAL BILIRUBIN ADULT 1.6 MG/DL (0.2-1.0)
[2016-09-21] MEDS: FREE WATER G-TUBE SCH ×5 (05:25→23:24)
[2016-09-21 05:32] LABS: BLOOD GAS BASE EXCESS 0.7 mmol/L (-2-2); BLOOD GAS CARBOXYHEMOGLOBIN 1.4 % (0-4); BLOOD GAS HCO3 24 mmol/L (22-26); BLOOD GAS METHEMOGLOBIN 0.8 % (0-2); BLOOD GAS O2 HGB SATURATION 96 % (90-100); BLOOD GAS OXYGEN CONTENT 13.5 Vol % (12.0-20.0); BLOOD GAS PCO2 36 mmHg (38-42); BLOOD GAS PO2 108 mmHg (61-120); BLOOD GAS TOTAL HGB 9.8 G/DL (12.0-16.0); TEMP CORR TO 98.6
[2016-09-21 05:33] LABS: CRITICAL VALUE NO; DRAW SITE ALINE; FIO2 70 %; OXYGEN DEVICE VENTILATOR; VENT SETTINGS APRV
[2016-09-21 05:34] LABS: STAT NO; ULNAR PULSE PRESENT
--- NOTE | 2016-09-21 06:52 | RADRPT ---
EXAM DATE/TIME: 09/21/2016 06:09 [place] COMPARISON: CHEST SINGLE AP, September 20, 2016, 5:20. INDICATIONS : Shortness of breath. MEDICAL HISTORY : Hypertension. Myocardial infarction. Diabetes mellitus type II. SURGICAL HISTORY : None. ENCOUNTER: Subsequent ACUITY: 1 week PAIN SCORE: Non-responsive. LOCATION: Bilateral chest FINDINGS: A single portable frontal view the chest shows worsening consolidation within the left lung base. Ate lectasis within the right midlung. Multiple left-sided rib fractures. Tracheostomy tube and nasogastr ic tube. Cardiac silhouette is normal. No pneumothorax. CONCLUSION: Worsening consolidation within the left lung base. 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., MD on September 21, 2016 at 6:50 Board Certified Radiologist. This report was verified electronically.
[2016-09-21 07:26] LABS: BANDS 12 % (0-6); BASOPHILS 1 % (0-2); NEUTROPHIL # MANUAL DIFF 22.6 TH/MM3 (1.8-7.7); POLYS (SEG NEUTROPHILS) 69 % (16-70); WBC DIFF SAMPLE 100
[2016-09-21 07:27] LABS: PLATELET ESTIMATE SMEAR HIGH (NORMAL); PLATELET MORPHOLOGY NORMAL (NORMAL); SCAN/DIFF FINAL DIFF MANUAL
[2016-09-21] MEDS: CHLORHEXIDINE 0.12% (ORAL KIT) 15 ML CUP MT SCH ×2 (08:00→19:34)
[2016-09-21] MEDS: DOCUSATE SODIUM 100 MG CAP PO SCH ×2 (08:47→20:06)
[2016-09-21] MEDS: BACITRACIN TOP OINT 15 GM TUBE TOPICAL SCH ×2 (09:00→20:06)
[2016-09-21] MEDS: INSULIN DETEMIR 100 UNITS/ML VIAL SQ SCH ×2 (09:44→20:06)
[2016-09-21] MEDS: SODIUM CHLORIDE 0.9% FLUSH 10 ML FLUSH IV FLUSH SCH ×2 (09:45→20:06)
[2016-09-21] MEDS: LACTULOSE SYRUP 20 GM/30 ML CUP PO SCH (09:46)
[2016-09-21] MEDS: FAMOTIDINE 20 MG/2 ML VIAL IV PUSH SCH ×2 (09:46→20:06)
[2016-09-21] MEDS ORDERED: LABETALOL HCL 100 MG/20 ML VIAL IV PRN (11:00)
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
--- NOTE | 2016-09-21 19:16 | MG ---
cc: CONI CONTRERAS M.D. Lab No: Date: 09/21/2016 Age: 61 Sex: M Race: REQUESTING: CHAPIS Mcwilliams. HISTORY: An EEG was obtained on this 61-year-old patient intubated and trached, history of intracranial hemorrhage. DESCRIPTION OF THE RECORD: The EEG is showing a poorly reactive background with some beta activity, a lot of delta and some theta rhythms of low and mid amplitude. There is EKG artifact expressing until the EEG leads. There is head ____ with breathing movement described continually. Photic stimulation disclosed no significant change. INTERPRETATION: Abnormal EEG because of moderate to severe slowing and poorly reactive background suggestive of a moderate to severe diffuse disturbance of cerebral function. No epileptiform features present. MD YENNY Bashir/NILES /6:17 PM /7:13 PM
[2016-09-21] MEDS: MAGNESIUM HYDROXIDE SUSP 30 ML CUP PO SCH (20:06)
[2016-09-22] VITALS (16 sets, daily range): BP systolic 108–158; BP diastolic 43–59; PULSE 110–129; RESP 20–28; TEMP 98.5–101.1; O2SAT 90–95
[2016-09-22] MEDS: INSULIN ASPART SUPPLEMENTAL SCALE SQ SCH ×5 (02:34→20:34)
[2016-09-22 03:42] LABS: AUTOMATED NEUTROPHIL # 23.7 TH/MM3 (1.8-7.7); BASOPHIL # 0.1 TH/MM3 (0-0.2); BASOPHIL % 0.3 % (0.0-2.0); EOSINOPHIL # 0.1 TH/MM3 (0-0.4); EOSINOPHIL % 0.5 % (0.0-4.0); LYMPH % 5.3 % (9.0-44.0); LYMPHOCYTE # 1.6 TH/MM3 (1.0-4.8); MEAN CELL VOLUME 92.2 FL (80.0-100.0); MEAN CORPUSCULAR HGB CONC 31.4 % (32.0-36.0); MONO % 12.8 % (0.0-8.0); NEUT % 81.1 % (16.0-70.0); PLATELET COUNT 467 TH/MM3 (150-450); RED BLOOD COUNT 3.15 MIL/MM3 (4.50-5.90); RED CELL DISTRIBUTION WIDTH 16.9 % (11.6-17.2); WHITE BLOOD COUNT 29.2 TH/MM3 (4.0-11.0)
[2016-09-22 03:46] LABS: HEMO FLAGS AUTO DIFF
[2016-09-22] MEDS: hydrALAZINE HCL 20 MG/ML VIAL IV PUSH SCH ×3 (04:00→20:35)
[2016-09-22] MEDS: CHLORHEXIDINE GLUCONATE 2 % 1 PACK (2 CLOTHS) TOP SCH (04:00)
[2016-09-22] MEDS: METOPROLOL TARTRATE 5 MG/5 ML VIAL IV PUSH SCH ×4 (04:00→21:23)
[2016-09-22 04:22] LABS: ALKALINE PHOSPHATASE 177 U/L (45-117); ALT (GPT) 33 U/L (12-78); ANION GAP 10 MEQ/L (5-15); AST (GOT) 45 U/L (15-37); BICARBONATE 27.5 MEQ/L (21.0-32.0); BLOOD UREA NITROGEN 128 MG/DL (7-18); CHLORIDE 118 MEQ/L (98-107); GLOMERULAR FILTRATION RATE 33 ML/MIN (>89); POTASSIUM 3.9 MEQ/L (3.5-5.1); SODIUM (NA) 155 MEQ/L (136-145); TOTAL BILIRUBIN ADULT 1.5 MG/DL (0.2-1.0)
[2016-09-22] MEDS: PIPERACIL-TAZO 3.375 GM PREMIX 50 ML IV SCH ×4 (04:41→22:20)
[2016-09-22 05:11] LABS: BANDS 9 % (0-6); CORRECTED NUCLEATED RBC 1 /100 WBC (0-0); MYELOCYTES 4 % (0-0); NEUTROPHIL # MANUAL DIFF 24.8 TH/MM3 (1.8-7.7); POLYS (SEG NEUTROPHILS) 72 % (16-70); WBC DIFF SAMPLE 100
[2016-09-22 05:14] LABS: PLATELET ESTIMATE SMEAR HIGH (NORMAL); PLATELET MORPHOLOGY ENLARGED (NORMAL); SCAN/DIFF FINAL DIFF MANUAL
[2016-09-22 05:47] LABS: BLOOD GAS BASE EXCESS 0.9 mmol/L (-2-2); BLOOD GAS CARBOXYHEMOGLOBIN 1.1 % (0-4); BLOOD GAS HCO3 25 mmol/L (22-26); BLOOD GAS METHEMOGLOBIN 0.8 % (0-2); BLOOD GAS O2 HGB SATURATION 95 % (90-100); BLOOD GAS OXYGEN CONTENT 21.7 Vol % (12.0-20.0); BLOOD GAS PCO2 41 mmHg (38-42); BLOOD GAS PO2 91 mmHg (61-120); BLOOD GAS TOTAL HGB 16.3 G/DL (12.0-16.0); CRITICAL VALUE NO; OXYGEN DEVICE VENTILATOR; TEMP CORR TO 98.6
[2016-09-22 05:48] LABS: DRAW SITE ALINE; FIO2 70 %; STAT NO
[2016-09-22] MEDS: FREE WATER G-TUBE SCH ×3 (06:00→18:00)
--- NOTE | 2016-09-22 06:39 | RADRPT ---
EXAM DATE/TIME: 09/22/2016 05:28 [place] COMPARISON: CHEST SINGLE AP, September 21, 2016, 6:09. INDICATIONS : Shortness of breath, possible pulmonary disease. MEDICAL HISTORY : Hypertension. Myocardial infarction. Diabetes mellitus type II. SURGICAL HISTORY : None. ENCOUNTER: Subsequent ACUITY: 1 week PAIN SCORE: Non-responsive. LOCATION: Bilateral chest FINDINGS: A single portable frontal view the chest shows resolution of the left lower lobe infiltrate. Right mi dlung atelectasis remains. Tracheostomy tube. Nasogastric tube. Heart is normal in size. CONCLUSION: Resolved left lower lobe infiltrate. Right midlung atelectasis. 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., MD on September 22, 2016 at 6:38 Board Certified Radiologist. This report was verified electronically.
[2016-09-22] MEDS: CHLORHEXIDINE 0.12% (ORAL KIT) 15 ML CUP MT SCH ×2 (08:00→20:00)
[2016-09-22] MEDS ORDERED: PHENYLEPH/NS 1000 MCG/10 ML SYR IV ONE (08:55)
[2016-09-22] MEDS: BACITRACIN TOP OINT 15 GM TUBE TOPICAL SCH ×2 (09:00→20:33)
[2016-09-22] MEDS: DOCUSATE SODIUM 100 MG CAP PO SCH ×2 (09:00→20:33)
[2016-09-22] MEDS ORDERED: DEXTROSE 50% IN WATER 50 ML VIAL(D50) IV PUSH PRN (09:15)
[2016-09-22] MEDS ORDERED: GLUCAGON 1 MG/ML VIAL OTHER PRN (09:15)
[2016-09-22] MEDS: LACTULOSE SYRUP 20 GM/30 ML CUP PO SCH (09:41)
[2016-09-22] MEDS: INSULIN DETEMIR 100 UNITS/ML VIAL SQ SCH ×2 (09:42→20:33)
[2016-09-22] MEDS: FAMOTIDINE 20 MG/2 ML VIAL IV PUSH SCH ×2 (09:42→20:32)
[2016-09-22] MEDS: SODIUM CHLORIDE 0.9% FLUSH 10 ML FLUSH IV FLUSH SCH ×2 (09:42→20:34)
[2016-09-22] MEDS ORDERED: SODIUM CHLOR 0.9% 1000 ML INJ 1,000 ML IV SCH (10:30)
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
[2016-09-22] MEDS ORDERED: INSULIN ASPART SUPPLEMENTAL SCALE SQ SCH (11:00)
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
[2016-09-22] MEDS: SODIUM CHLOR 0.45% 1000 ML INJ 1,000 ML IV SCH ×2 (12:00→21:23)
[2016-09-22 12:10] LABS: BACTERIA, URINE OCC /hpf; BLOOD, URINE LARGE (NEG); GLUCOSE,URINE NEG (NEG); KETONE, URINE NEG (NEG); NITRITE,URINE NEG (NEG); PH, URINE 5.5 (5.0-8.5); SQUAMOUS EPITHELIAL CELL URINE <1 /hpf (0-5); TRANSITIONAL EPI CELLS, URINE <1 /hpf; URINE COLOR YELLOW (YELLW/STRAW)
[2016-09-22 12:14] LABS: COMMENT (UR) CATH-CULTURE IND; CULTURE IF INDICATED CATH CULTURE IND
[2016-09-22] MEDS ORDERED: fentaNYL CITRATE 250 MCG/5 ML AMP ONE (12:19)
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
[2016-09-22] MEDS ORDERED: Vancomycin Consult Pharmacy 1 EA OTHER SCH (13:00)
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
[2016-09-22] MEDS ORDERED: VANCOMYCIN INJ 2,000 MG in SODIUM CHLORID 0.9% 500 ML INJ 500 ML IV ONE (15:00)
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
[2016-09-22] MEDS: MAGNESIUM HYDROXIDE SUSP 30 ML CUP PO SCH (20:33)
[2016-09-22] MEDS ORDERED: INSULIN DETEMIR 100 UNITS/ML VIAL SQ SCH (21:00)
--- NOTE | 2016-09-22 23:28 | RADRPT ---
EXAM DATE/TIME: 09/22/2016 22:17 [place] COMPARISON: No previous studies available for comparison. INDICATIONS : Increased BUN/Creatinine. MEDICAL HISTORY : Myocardial infarction. Hypertension. Cirrhosis. Left clavicle fracture. Diabetes. Measles. Migraines. Arthritis. Bipolar disorder. Blood transfusion. SURGICAL HISTORY : Appendectomy. Splenectomy. Back surgery. Exploratory laparotomy. ENCOUNTER: Initial ACUITY: 1 day PAIN SCORE: Nonresponsive. LOCATION: Bilateral flank MEASUREMENTS: RIGHT KIDNEY: 12.4 x 5.6 x 4.7 cm LEFT KIDNEY: 13.9 x 5.9 x 5.9 cm FINDINGS: RIGHT KIDNEY: Renal cortex is normal in thickness and echotexture. No hydronephrosis, stone, or mass. LEFT KIDNEY: Renal cortex is normal in thickness and echotexture. No hydronephrosis, stone, or mass. BLADDER: Forrest catheter in urinary bladder. There is moderate abdominal ascites. CONCLUSION: 1. Unremarkable bilateral renal ultrasound. 2. Moderate abdominal ascites. Christiano Trotter MD on September 22, 2016 at 23:25 Board Certified Radiologist. This report was verified electronically.
[2016-09-23] VITALS (17 sets, daily range): BP systolic 99–139; BP diastolic 41–54; PULSE 95–115; RESP 20–26; TEMP 98.7–99.7; O2SAT 93–97
[2016-09-23] MEDS: INSULIN ASPART SUPPLEMENTAL SCALE SQ SCH ×6 (00:11→20:05)
[2016-09-23] MEDS ORDERED: SODIUM CHLOR 0.9% 1000 ML INJ 2,000 ML IV ONE (01:00)
[2016-09-23 02:31] LABS: HEMATOCRIT 27.4 % (39.0-51.0); MEAN CELL VOLUME 92.8 FL (80.0-100.0); MEAN CORPUSCULAR HEMOGLOBIN 29.9 PG (27.0-34.0); MEAN CORPUSCULAR HGB CONC 32.2 % (32.0-36.0); PLATELET COUNT 385 TH/MM3 (150-450); RED BLOOD COUNT 2.95 MIL/MM3 (4.50-5.90); WHITE BLOOD COUNT 32.5 TH/MM3 (4.0-11.0)
[2016-09-23 02:53] LABS: ALKALINE PHOSPHATASE 156 U/L (45-117); ALT (GPT) 34 U/L (12-78); ANION GAP 8 MEQ/L (5-15); AST (GOT) 42 U/L (15-37); BICARBONATE 26.7 MEQ/L (21.0-32.0); BLOOD UREA NITROGEN 137 MG/DL (7-18); CHLORIDE 122 MEQ/L (98-107); GLOMERULAR FILTRATION RATE 31 ML/MIN (>89); TOTAL BILIRUBIN ADULT 1.4 MG/DL (0.2-1.0)
[2016-09-23 02:54] LABS: HEMO FLAGS AUTO DIFF; SODIUM (NA) 157 MEQ/L (136-145)
[2016-09-23 03:19] LABS: BANDS 4 % (0-6); METAMYELOCYTES 1 % (0-1); NEUTROPHIL # MANUAL DIFF 29.6 TH/MM3 (1.8-7.7); POLYS (SEG NEUTROPHILS) 86 % (16-70); WBC DIFF SAMPLE 100
[2016-09-23 03:21] LABS: PLATELET ESTIMATE SMEAR HIGH (NORMAL); PLATELET MORPHOLOGY NORMAL (NORMAL); SCAN/DIFF FINAL DIFF MANUAL
[2016-09-23] MEDS: CHLORHEXIDINE GLUCONATE 2 % 1 PACK (2 CLOTHS) TOP SCH (04:00)
[2016-09-23] MEDS: PIPERACIL-TAZO 3.375 GM PREMIX 50 ML IV SCH ×3 (04:20→16:02)
[2016-09-23] MEDS: FREE WATER G-TUBE SCH ×4 (05:22→17:19)
[2016-09-23] MEDS: METOPROLOL TARTRATE 5 MG/5 ML VIAL IV PUSH SCH ×3 (05:30→22:29)
[2016-09-23] MEDS: SODIUM CHLOR 0.45% 1000 ML INJ 1,000 ML IV SCH ×2 (06:27→17:20)
[2016-09-23 06:36] LABS: BLOOD GAS BASE EXCESS -1.2 mmol/L (-2-2); BLOOD GAS CARBOXYHEMOGLOBIN 1.3 % (0-4); BLOOD GAS HCO3 23 mmol/L (22-26); BLOOD GAS METHEMOGLOBIN 1.1 % (0-2); BLOOD GAS O2 HGB SATURATION 96 % (90-100); BLOOD GAS OXYGEN CONTENT 12.9 Vol % (12.0-20.0); BLOOD GAS PCO2 42 mmHg (38-42); BLOOD GAS PO2 125 mmHg (61-120); BLOOD GAS TOTAL HGB 9.3 G/DL (12.0-16.0); CRITICAL VALUE NO; OXYGEN DEVICE VENTILATOR; TEMP CORR TO 98.6
[2016-09-23 06:37] LABS: DRAW SITE ALINE; FIO2 100 %; STAT NO
[2016-09-23] MEDS: CHLORHEXIDINE 0.12% (ORAL KIT) 15 ML CUP MT SCH ×2 (08:00→20:00)
[2016-09-23] MEDS: hydrALAZINE HCL 20 MG/ML VIAL IV PUSH SCH ×2 (09:00→21:38)
[2016-09-23] MEDS: BACITRACIN TOP OINT 15 GM TUBE TOPICAL SCH ×2 (09:00→20:41)
--- NOTE | 2016-09-23 09:36 | HHI.NSPN ---
(Tomi Mckeon) Note Status Status: Progress Note (Tomi Mckeon) Interval History Interval History The patient went for a trach revision yesterday with Trauma. He still has a deterioration of his neurological status. Nursing reports only a pupillary response. His ammonia level was elevated 2 days ago and a repeat level was drawn when the patient was seen. Palliative Care has been consulted. Trauma was at the bedside when the patient was seen and is to make vent adjustments later today and plans to consult Neurology. (Tomi Mckeon) Labs, Micro, & Vital Signs Results Allergies Coded Allergies Type Severity Reaction Last Updated Verified No Known Allergies 09/11/16 No Recent Impressions Chest X-Ray 09/22/16 0600 Signed Impressions: Service Date/Time: Thursday, September 22, 2016 05:28 - CONCLUSION: Resolved left lower lobe infiltrate. Right midlung atelectasis. 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., MD Renal Ultrasound 09/22/16 0000 Signed Impressions: Service Date/Time: Thursday, September 22, 2016 22:17 - CONCLUSION: 1. Unremarkable bilateral renal ultrasound. 2. Moderate abdominal ascites. Christiano Trotter MD Chest X-Ray 09/21/16 0600 Signed Impressions: Service Date/Time: Wednesday, September 21, 2016 06:09 - CONCLUSION: Worsening consolidation within the left lung base. 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., MD //174//174//174// 06:00 18:00 06:00 18:00 06:00 18:00 Intake Total 1087 ml 624 ml 993 ml 408 ml 4401 ml Output Total 1110 ml 525 ml 1150 ml 225 ml 1225 ml Balance -23 ml 99 ml -157 ml 183 ml 3176 ml IV Total 568 ml 196 ml 275 ml 180 ml 3611 ml Tube Feeding 319 ml 168 ml 518 ml 168 ml 390 ml Other 200 ml 260 ml 200 ml 60 ml 400 ml Output Urine Total 1110 ml 525 ml 900 ml 225 ml 1225 ml Stool Total 250 ml # Bowel Movements 2 1 0 Laboratory Tests Test 09/21/16 09/21/16 09/21/16 09/22/16 04:15 05:25 10:50 03:05 White Blood Count 27.9 TH/MM3 29.2 TH/MM3 Red Blood Count 3.24 MIL/MM3 3.15 MIL/MM3 Hemoglobin 9.4 GM/DL 9.1 GM/DL Hematocrit 29.8 % 29.0 % Mean Corpuscular Volume 91.9 FL 92.2 FL Mean Corpuscular Hemoglobin 29.0 PG 29.0 PG Mean Corpuscular Hemoglobin 31.5 % 31.4 % Concent Red Cell Distribution Width 17.0 % 16.9 % Platelet Count 525 TH/MM3 467 TH/MM3 Mean Platelet Volume 9.0 FL 9.4 FL Neutrophils (%) (Auto) 80.4 % 81.1 % Lymphocytes (%) (Auto) 5.2 % 5.3 % Monocytes (%) (Auto) 11.9 % 12.8 % Eosinophils (%) (Auto) 0.5 % 0.5 % Basophils (%) (Auto) 2.0 % 0.3 % Neutrophils # (Auto) 22.5 TH/MM3 23.7 TH/MM3 Lymphocytes # (Auto) 1.4 TH/MM3 1.6 TH/MM3 Monocytes # (Auto) 3.3 TH/MM3 3.8 TH/MM3 Eosinophils # (Auto) 0.1 TH/MM3 0.1 TH/MM3 Basophils # (Auto) 0.5 TH/MM3 0.1 TH/MM3 CBC Comment AUTO DIFF AUTO DIFF Differential Total Cells 100 100 Counted Neutrophils % (Manual) 69 % 72 % Band Neutrophils % 12 % 9 % Lymphocytes % 2 % 6 % Monocytes % 16 % 9 % Basophils % 1 % Neutrophils # (Manual) 22.6 TH/MM3 24.8 TH/MM3 Differential Comment FINAL DIFF FINAL DIFF MANUAL MANUAL Platelet Estimate HIGH HIGH Platelet Morphology Comment NORMAL ENLARGED Sodium Level 152 MEQ/L 155 MEQ/L Potassium Level 4.0 MEQ/L 3.9 MEQ/L Chloride Level 117 MEQ/L 118 MEQ/L Carbon Dioxide Level 27.6 MEQ/L 27.5 MEQ/L Anion Gap 7 MEQ/L 10 MEQ/L Blood Urea Nitrogen 107 MG/DL 128 MG/DL Creatinine 1.97 MG/DL 2.06 MG/DL Estimat Glomerular Filtration 35 ML/MIN 33 ML/MIN Rate Random Glucose 246 MG/DL 261 MG/DL Calcium Level 8.4 MG/DL 8.1 MG/DL Phosphorus Level 3.6 MG/DL Magnesium Level 3.4 MG/DL Total Bilirubin 1.6 MG/DL 1.5 MG/DL Aspartate Amino Transf 40 U/L 45 U/L (AST/SGOT) Alanine Aminotransferase 30 U/L 33 U/L (ALT/SGPT) Alkaline Phosphatase 171 U/L 177 U/L Total Protein 6.1 GM/DL 5.8 GM/DL Albumin 2.1 GM/DL 2.2 GM/DL Blood Gas Puncture Site [facility] Blood Gas Patient Temperature 98.6 Blood Gas HCO3 24 mmol/L Blood Gas Base Excess 0.7 mmol/L Blood Gas Oxygen Saturation 96 % Arterial Blood pH 7.45 Arterial Blood Partial 36 mmHg Pressure CO2 Arterial Blood Partial 108 mmHg Pressure O2 Arterial Blood Oxygen Content 13.5 Vol % Arterial Blood 1.4 % Carboxyhemoglobin Arterial Blood Methemoglobin 0.8 % Blood Gas Hemoglobin 9.8 G/DL Oxygen Delivery Device VENTILATOR Blood Gas Ventilator Setting APRV Blood Gas Inspired Oxygen 70 % Ammonia 88 MCMOL/L Myelocytes 4 % Nucleated Red Blood Cells 1 /100 WBC Test 09/22/16 09/22/16 09/23/16 09/23/16 05:35 11:15 02:00 06:27 Blood Gas Puncture Site [facility] Blood Gas Patient Temperature 98.6 98.6 Blood Gas HCO3 25 mmol/L 23 mmol/L Blood Gas Base Excess 0.9 mmol/L -1.2 mmol/L Blood Gas Oxygen Saturation 95 % 96 % Arterial Blood pH 7.41 7.37 Arterial Blood Partial 41 mmHg 42 mmHg Pressure CO2 Arterial Blood Partial 91 mmHg 125 mmHg Pressure O2 Arterial Blood Oxygen Content 21.7 Vol % 12.9 Vol % Arterial Blood 1.1 % 1.3 % Carboxyhemoglobin Arterial Blood Methemoglobin 0.8 % 1.1 % Blood Gas Hemoglobin 16.3 G/DL 9.3 G/DL Oxygen Delivery Device VENTILATOR VENTILATOR Blood Gas Ventilator Setting SEE COMMENT SEE COMMENT Blood Gas Inspired Oxygen 70 % 100 % Urine Color YELLOW Urine Turbidity HAZY Urine pH 5.5 Urine Specific Belcher 1.022 Urine Protein TRACE mg/dL Urine Glucose (UA) NEG mg/dL Urine Ketones NEG mg/dL Urine Occult Blood LARGE Urine Nitrite NEG Urine Bilirubin NEG Urine Urobilinogen LESS THAN 2.0 MG/DL Urine Leukocyte Esterase LARGE Urine RBC /hpf Urine WBC 45 /hpf Urine WBC Clumps RARE Urine Squamous Epithelial <1 /hpf Cells Urine Transitional Epithelial <1 /hpf Cells Urine Bacteria OCC /hpf Urine Yeast with Hyphae OCC Microscopic Urinalysis Comment CATH-CULTURE IND Urine Eosinophils RARE /HPF Urine Osmolality 584 MOSM/KG Urine Random Creatinine 94.3 MG/DL Urine Random Sodium 8 MEQ/L Nasal Screen MRSA (PCR) MRSA NOT DETECTED White Blood Count 32.5 TH/MM3 Red Blood Count 2.95 MIL/MM3 Hemoglobin 8.8 GM/DL Hematocrit 27.4 % Mean Corpuscular Volume 92.8 FL Mean Corpuscular Hemoglobin 29.9 PG Mean Corpuscular Hemoglobin 32.2 % Concent Red Cell Distribution Width 17.0 % Platelet Count 385 TH/MM3 Mean Platelet Volume 9.1 FL Neutrophils (%) (Auto) % Lymphocytes (%) (Auto) % Monocytes (%) (Auto) % Eosinophils (%) (Auto) % Basophils (%) (Auto) % Neutrophils # (Auto) TH/MM3 Lymphocytes # (Auto) TH/MM3 Monocytes # (Auto) TH/MM3 Eosinophils # (Auto) TH/MM3 Basophils # (Auto) TH/MM3 CBC Comment AUTO DIFF Differential Total Cells 100 Counted Neutrophils % (Manual) 86 % Band Neutrophils % 4 % Lymphocytes % 3 % Monocytes % 6 % Neutrophils # (Manual) 29.6 TH/MM3 Metamyelocytes 1 % Differential Comment FINAL DIFF MANUAL Platelet Estimate HIGH Platelet Morphology Comment NORMAL Basophilic Stippling FAINT Sodium Level 157 MEQ/L Potassium Level 4.0 MEQ/L Chloride Level 122 MEQ/L Carbon Dioxide Level 26.7 MEQ/L Anion Gap 8 MEQ/L Blood Urea Nitrogen 137 MG/DL Creatinine 2.19 MG/DL Estimat Glomerular Filtration 31 ML/MIN Rate Random Glucose 206 MG/DL Calcium Level 7.6 MG/DL Total Bilirubin 1.4 MG/DL Aspartate Amino Transf 42 U/L (AST/SGOT) Alanine Aminotransferase 34 U/L (ALT/SGPT) Alkaline Phosphatase 156 U/L Total Protein 5.4 GM/DL Albumin 1.9 GM/DL Constitutional Vital Signs Date Time Temp Pulse Resp B/P Pulse Ox O2 Delivery O2 Flow Rate FiO2 09/23/16 08:51 96 90 09/23/16 08:00 90 09/23/16 08:00 99.7 95 23 99/47 96 09/23/16 06:00 99 09/23/16 04:00 100 09/23/16 04:00 112 09/23/16 04:00 99.7 111 20 136/54 97 09/23/16 03:22 97 100 09/23/16 02:00 111 09/23/16 00:00 99.5 115 20 117/54 95 09/23/16 00:00 100 09/23/16 00:00 115 09/22/16 23:57 95 100 09/22/16 22:00 120 09/22/16 20:00 118 09/22/16 20:00 99.8 110 20 117/53 95 09/22/16 20:00 100 09/22/16 19:57 95 100 09/22/16 18:00 116 09/22/16 16:00 100.9 113 26 110/43 93 09/22/16 16:00 80 09/22/16 16:00 113 09/22/16 15:37 93 100 09/22/16 14:00 123 09/22/16 12:00 80 09/22/16 12:00 101.1 129 27 108/46 92 09/22/16 12:00 129 09/22/16 10:00 126 09/23/16 07:00 Intake Total 4809 ml Output Total 1450 ml Balance 3359 ml (Tomi Mckeon) Review of Systems/Exam ROS Unable to obtain ROS due to patient's mental status and sedation. Exam Patient w/o any sedation the past 2 days. Respirations essentially clear, mildly laboured with persistent shallow, gasping -type respiration, trach in place. RRR w/o M/G/R but slightly fast, monitor is SR w/o any ectopy noted. Abdomen distended, bowel sounds not appreciated. No eye opening, PERRLA 3 mm bilaterally, no corneal reflex. No gag reflex. Face is symmetrical. No response to noxious stimuli. (Tomi Mckeon) Medications Current Medications Current Medications Medications (Trade) Dose Ordered Sig/Wally Route Start Time Stop Time Status Last Admin (NS Flush) 2 ml UNSCH PRN IV FLUSH 09/11/16 20:00 (NS Flush) 2 ml BID IV FLUSH 09/11/16 21:00 09/22/16 20:34 (Pepcid Inj) 20 mg Q12HR IV PUSH 09/11/16 21:00 09/22/16 20:32 Miscellaneous Information 1 Q361D XX 09/11/16 20:00 09/11/16 22:55 (Chlorhexidine 2% Cloth) Taper DAILY@04 TOP 09/12/16 04:00 09/08/17 03:59 09/23/16 04:00 Chlorhexidine Gluconate 3 pack 3 pack UNSCH PRN TOP 09/11/16 20:00 (fentaNYL DRIP) 250 ml @ 0 mls/hr TITRATE IV 09/11/16 20:00 09/20/16 20:17 (Brethine Inj) 1 mg UNSCH PRN SQ 09/11/16 20:45 Chlorhexidine Gluconate 15 ml 15 ml BID@08,20 MT 09/12/16 08:00 09/22/16 20:00 Propofol 100 ml @ 0 mls/hr TITRATE IV 09/11/16 20:45 09/21/16 04:41 Potassium Chloride 100 ml @ 50 mls/hr Q2H PRN IV 09/12/16 07:45 09/16/16 09:14 (KCl 20 Meq Premix Inj) 100 ml @ 50 mls/hr Q2H PRN IV 09/12/16 07:45 Potassium Bicarb/ Potassium Chloride 50 meq 50 meq UNSCH PRN PO 09/12/16 07:45 Potassium Chloride 100 ml @ 25 mls/hr UNSCH PRN IV 09/12/16 07:45 09/16/16 17:29 Potassium Chloride 100 ml @ 50 mls/hr Q2H PRN IV 09/12/16 07:45 (Magnesium Sulfate Inj/NS Inj) 100 ml @ 50 mls/hr UNSCH PRN IV 09/12/16 07:45 Magnesium Oxide 800 mg 800 mg UNSCH PRN PO 09/12/16 07:45 (Magnesium Sulfate Inj/NS Inj) 100 ml @ 50 mls/hr UNSCH PRN IV 09/12/16 07:45 Potassium Phosphate 2000 mg 2,000 mg Q4H PRN PO 09/12/16 07:45 (Sodium Phosphate Inj/NS 250 ml Inj) 250 ml @ 42 mls/hr UNSCH PRN IV 09/12/16 07:45 09/16/16 01:29 Potassium Phosphate 2000 mg 2,000 mg UNSCH PRN PO/TUBE 09/12/16 07:45 (Potassium Phosphate Inj/NS 250 ml Inj) 260 ml @ 42 mls/hr UNSCH PRN IV 09/12/16 07:45 (Baciguent Oint) 1 applic Q12HR TOPICAL 09/12/16 12:00 09/22/16 20:33 (Free Water) 200 ml Q6HR G-TUBE 09/17/16 12:00 09/23/16 05:22 (Colace) 100 mg BID PO 09/19/16 21:00 09/21/16 20:06 (Milk Of Magnesia Liq) 30 ml HS PO 09/19/16 21:00 09/21/16 20:06 Lactulose 30 ml 30 ml DAILY PO 09/19/16 10:00 09/22/16 09:41 (Zosyn 3.375 Gm Premix) 50 ml @ 100 mls/hr Q6H IV 09/19/16 23:00 09/23/16 04:20 (Trandate Inj) 20 mg Q2H PRN IV 09/21/16 11:00 (D50w (Vial) Inj) 25 ml UNSCH PRN IV PUSH 09/22/16 09:15 (Glucagon Inj) 1 mg UNSCH PRN OTHER 09/22/16 09:15 (NovoLOG SUPPLEMENTAL SCALE) 1 Q4HR SQ 09/22/16 12:00 09/23/16 04:19 Insulin Detemir 10 units 10 units Q12HR SQ 09/22/16 09:30 09/22/16 20:33 (1/2 NS 1000 ml Inj) 1,000 ml @ 100 mls/hr Q10H IV 09/22/16 12:00 09/23/16 06:27 (Apresoline Inj) 10 mg BID IV PUSH 09/22/16 21:00 Metoprolol Tartrate 5 mg 5 mg Q8HR IV PUSH 09/22/16 14:00 09/23/16 05:30 (Vancomycin Consult Pharmacy) 0 ml @ 0 mls/hr UNSCH OTHER 09/22/16 13:00 (Tomi Mckeon) Medical Decision Making MDM Remarks Traumatic brain injury Stable contusion w/o mass effect per CT 09/19 EEG of suggestive of moderate to severe diffuse cerebral function disturbance, no epileptiform features present Elevated ammonia level 09/21 Continues to have decreased neurological status, probable encephalopathy ( Tomi Mckeon) Plan Plan Remarks Continue close monitoring of neuro status & vital signs Critical care management per [facility]an sedation & ventilation per Surgical [facility] Trauma Concur with Neurology consult Concur with Palliative Care consult (Tomi Mckeon) Attending Statement I have personally seen and examined the patient on the date of this note. Pertinent documentation and study results have been reviewed by the undersigned. I have personally developed the treatment plan and performed medical decision making. Agree with findings, exam, and treatment plan as noted above. No improvement in neurologic exam over the past few days. Level of responsiveness remains diminished compared to 7-10 days ago. BUN and creatinine continued to rise. Ammonia level relatively stable at 84 today. On lactulose Rifaximin added per intensivists. Nephrology is following with possible hemodialysis Last EEG with rather severe diffuse slowing, consistent with encephalopathy. ( Mamadou Cottrell MD) Tomi Mckeon Sep 23, 2016 09:36 Mamadou Cottrell MD Sep 23, 2016 21:19
[2016-09-23] MEDS ORDERED: SODIUM CHLOR 0.45% 1000 ML INJ 1,000 ML IV ONE (10:00)
[2016-09-23] MEDS: LACTULOSE SYRUP 20 GM/30 ML CUP PO SCH (10:27)
[2016-09-23] MEDS: FAMOTIDINE 20 MG/2 ML VIAL IV PUSH SCH ×2 (10:29→20:06)
[2016-09-23] MEDS: DOCUSATE SODIUM 100 MG CAP PO SCH ×2 (10:32→20:40)
[2016-09-23] MEDS: SODIUM CHLORIDE 0.9% FLUSH 10 ML FLUSH IV FLUSH SCH ×2 (10:32→20:40)
[2016-09-23] MEDS: INSULIN DETEMIR 100 UNITS/ML VIAL SQ SCH ×2 (10:33→20:06)
--- NOTE | 2016-09-23 11:02 | HHI.PR ---
Neuropsych Progress Notes/Response to Tx Contents of Sessions: Level of Consciousness Time with Patient: 15 minutes Premorbid psychological status Premorbid Cognitive, Emotional and Behavioral Status: Unable to Assess. There is no family present to request this information. Behavioral Reactions of Patient and Family/Support System: Unable to Assess. The patients family is not present. Emotional/Behavioral Status of Patient and Family/Support System: Unable to Assess. Pertinent issues, if appropriate to this patients clinical care, are described in detail above. Maximizing acute care outcome It is recommended that the patient be monitored for emergent behavioral impulsivity as the medical condition evolves. This patients neuropathological challenges may limit their rehabilitation potential going forward, and these challenges will require specialized therapeutic skills to maximize outcome. Anticipated Problems Ongoing areas of concern will include behavioral impulsivity, lack of insight and judgment, which is expected to improve with time and treatment. Treatment Plan This clinician will continue to follow with you throughout the course of this patients acute care treatment, and I will be available to meet with the patient s family/support system to facilitate their understanding and the ongoing care of their family member. The goals of neuropsychological intervention shall be both educational and supportive to the family/support system as is deemed clinically appropriate. [facility] Level: I:No response-total assistance Impression The patient suffered a mild to moderate brain injury secondary to the LONG-TERM and has experienced secondary complications to his neurotrauma due to his other injuries. He is expected to have residual neurocognitive deficits. Diagnosis: (1) Major neurocognitive disorder as late effect of traumatic brain injury with behavioral disturbance Status: Acute Progress Note Narrative Ongoing follow-up of patient seen during daily trauma rounds. This is day 12 post injury. Recent EEG was normal except for metabolic encephalopathic changes. He is having numerous metabolic issues including FIO2 of 70, I/O of - 214, white count of 29.2, NA of 155, BUN of 128 and creatinine of 2.06. Sedating medications were minimized since 09/21, and he is not showing signs of waking up. He remains a [place]. I will continue to follow. Daniel Meade PhD Sep 23, 2016 11:02 am
--- NOTE | 2016-09-23 11:12 | MP ---
cc: MD ROSY,SHREYA DATE OF SURGERY: 09/23/2016 PREOPERATIVE DIAGNOSIS: Traumatic brain injury, respiratory failure. POSTOPERATIVE DIAGNOSIS: Traumatic brain injury, respiratory failure. OPERATIVE PROCEDURE PERFORMED: Blue rhino tracheostomy SURGEON: Shreya Hoffmann M.D. ANESTHESIA: General. ESTIMATED BLOOD LOSS: 5 mL. DESCRIPTION OF THE PROCEDURE IN DETAIL: The patient was prepped and draped in the usual fashion. A vertical neck incision was made in the midline just above the sternal notch and deepened down with a hemostat and Metzenbaum scissors to the level of the strap muscles and then trachea. By palpation, the second to third tracheal rings were palpated and then an Angiocath needle inserted between the second and third rings. The procedure was now followed with bronchoscopy from the top to the endotracheal tube. The endotracheal tube was withdrawn sufficiently to allow the passage of the guidewire distally and then over the guidewire the punch dilator was placed and this was followed by the Blue Rhino dilator. Then over the guidewire the #8 Shiley cannula was placed and stented with a 28-Vietnamese dilator. The cannula slid in easily and it was connected to the respirator. End tidal CO2 was obtained. The cannula was sutured to the skin with 2-0 Prolene and secured around the neck. The patient tolerated procedure well. Shreya PAGE/NILES /4:28 PM /11:08 AM
[2016-09-23] MEDS: ENOXAPARIN SODIUM 30 MG/0.3 ML SYRINGE SQ SCH ×2 (11:58→20:05)
[2016-09-23] MEDS ORDERED: PHARMACY ORDERED LAB ONE (12:00)
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
[2016-09-23] MEDS ORDERED: PIPERACIL-TAZO 2.25 GM PREMIX 50 ML IV SCH (17:00)
[2016-09-23] MEDS: FLUCONAZOLE 200 MG PREMIX BAG 100 ML IV SCH (17:15)
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
[2016-09-23] MEDS: RIFAXIMIN 200 MG TAB PO SCH ×2 (17:49→22:52)
[2016-09-23] MEDS ORDERED: VANCOMYCIN INJ 1,750 MG in SODIUM CHLORID 0.9% 500 ML INJ 500 ML IV ONE (18:00)
[2016-09-23] MEDS: MAGNESIUM HYDROXIDE SUSP 30 ML CUP PO SCH (20:40)
[2016-09-23] MEDS: PIPERACIL-TAZO 2.25 GM PREMIX 50 ML IV SCH (22:29)
[2016-09-24] VITALS (20 sets, daily range): BP systolic 104–149; BP diastolic 37–57; PULSE 97–114; RESP 20–27; TEMP 98.6–99.9; O2SAT 92–97
[2016-09-24] MEDS: INSULIN ASPART SUPPLEMENTAL SCALE SQ SCH ×6 (00:39→21:36)
[2016-09-24] MEDS: CHLORHEXIDINE GLUCONATE 2 % 1 PACK (2 CLOTHS) TOP SCH (03:34)
[2016-09-24] MEDS: SODIUM CHLOR 0.45% 1000 ML INJ 1,000 ML IV SCH ×2 (03:34→16:08)
[2016-09-24 05:15] LABS: AUTOMATED NEUTROPHIL # 29.5 TH/MM3 (1.8-7.7); BASOPHIL # 0.1 TH/MM3 (0-0.2); BASOPHIL % 0.3 % (0.0-2.0); EOSINOPHIL # 0.1 TH/MM3 (0-0.4); EOSINOPHIL % 0.2 % (0.0-4.0); HEMATOCRIT 28.8 % (39.0-51.0); LYMPH % 7.1 % (9.0-44.0); LYMPHOCYTE # 2.5 TH/MM3 (1.0-4.8); MEAN CORPUSCULAR HEMOGLOBIN 29.4 PG (27.0-34.0); MEAN CORPUSCULAR HGB CONC 31.3 % (32.0-36.0); MONO % 9.5 % (0.0-8.0); NEUT % 82.9 % (16.0-70.0); PLATELET COUNT 389 TH/MM3 (150-450); RED BLOOD COUNT 3.07 MIL/MM3 (4.50-5.90); RED CELL DISTRIBUTION WIDTH 17.1 % (11.6-17.2); WHITE BLOOD COUNT 35.7 TH/MM3 (4.0-11.0)
[2016-09-24 05:16] LABS: BLOOD GAS BASE EXCESS -1.3 mmol/L (-2-2); BLOOD GAS CARBOXYHEMOGLOBIN 1.5 % (0-4); BLOOD GAS HCO3 23 mmol/L (22-26); BLOOD GAS O2 HGB SATURATION 91 % (90-100); BLOOD GAS OXYGEN CONTENT 11.9 Vol % (12.0-20.0); BLOOD GAS PCO2 35 mmHg (38-42); BLOOD GAS PO2 67 mmHg (61-120); BLOOD GAS TOTAL HGB 9.2 G/DL (12.0-16.0); CRITICAL VALUE NO; TEMP CORR TO 98.6
[2016-09-24 05:17] LABS: OXYGEN DEVICE VENTILATOR
[2016-09-24 05:18] LABS: DRAW SITE ART LINE; FIO2 80 %; STAT NO; VENT SETTINGS BILEVEL
[2016-09-24 05:28] LABS: ALT (GPT) 42 U/L (12-78); ANION GAP 10 MEQ/L (5-15); AST (GOT) 66 U/L (15-37); BICARBONATE 24.5 MEQ/L (21.0-32.0); BLOOD UREA NITROGEN 144 MG/DL (7-18); CHLORIDE 119 MEQ/L (98-107); GLOMERULAR FILTRATION RATE 30 ML/MIN (>89); POTASSIUM 4.1 MEQ/L (3.5-5.1); SODIUM (NA) 153 MEQ/L (136-145)
[2016-09-24] MEDS: FREE WATER G-TUBE SCH ×4 (05:28→18:00)
[2016-09-24] MEDS: RIFAXIMIN 200 MG TAB PO SCH ×3 (05:28→21:39)
[2016-09-24 05:29] LABS: ALKALINE PHOSPHATASE 202 U/L (45-117); TOTAL BILIRUBIN ADULT 1.4 MG/DL (0.2-1.0)
[2016-09-24] MEDS ORDERED: PHARMACY ORDERED LAB ONE (06:00)
--- NOTE | 2016-09-24 06:03 | RADRPT ---
EXAM DATE/TIME: 09/24/2016 04:26 [facility] COMPARISON: CHEST SINGLE AP, September 22, 2016, 5:28. INDICATIONS : Short of breath. MEDICAL HISTORY : Hypertension. Myocardial infarction. Diabetes mellitus type II. SURGICAL HISTORY : None. ENCOUNTER: Subsequent ACUITY: 1 week PAIN SCORE: Non-responsive. LOCATION: Bilateral chest FINDINGS: The tracheostomy tube remains in place. There is no pneumothorax. There continues to be an infiltrate in the right perihilar area. Otherwise the lung berg appear to be stable. There are no pleural eff usions. The heart size is stable. The bony structures are stable. CONCLUSION: No significant change in the right perihilar infiltrate. Christiano Trotter MD on September 24, 2016 at 6:00 Board Certified Radiologist. This report was verified electronically.
[2016-09-24 06:13] LABS: HEMO FLAGS AUTO DIFF
[2016-09-24] MEDS: METOPROLOL TARTRATE 5 MG/5 ML VIAL IV PUSH SCH ×3 (06:36→22:00)
[2016-09-24] MEDS: PIPERACIL-TAZO 2.25 GM PREMIX 50 ML IV SCH ×3 (06:36→22:52)
[2016-09-24 07:07] LABS: BANDS 12 % (0-6); CORRECTED NUCLEATED RBC 1 /100 WBC (0-0); MYELOCYTES 3 % (0-0); NEUTROPHIL # MANUAL DIFF 30.7 TH/MM3 (1.8-7.7); POLYS (SEG NEUTROPHILS) 71 % (16-70); WBC DIFF SAMPLE 100
[2016-09-24 07:08] LABS: PLATELET ESTIMATE SMEAR NORMAL (NORMAL); PLATELET MORPHOLOGY NORMAL (NORMAL); SCAN/DIFF FINAL DIFF MANUAL
--- NOTE | 2016-09-24 08:31 | PD.CONS ---
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 hemorrhage, previously responsive, but no longer is, with worsening encephalopathy despite being off sedation., cirrhosis, respiratory failure, and renal failure. Overall prognosis appears poor. Code Status: Full Code Plan == code: DNR == HCS: daughter is proxy == goals: Daughter seen pt's decline, worsening neuro, and renal status. Given the overwhelming challenges the patient faces, pt's daughter feel, he would not want to continue aggressive care, dialysis, peg if needed. Daughter feel pt would not want to be like this for another week and is leaning towards transition to comfort measures only. She will talk to and call family, and wait for the EEG test result. I will update pt's daughter on attending perspective. ==dyspnea- on vent. == encephalopathy- likely multifocal. == palliative care will continue to follow up. Time Spent Total Floor Time (mins): 90 Face to Face Time (mins): 60 Thank you for the opportunity to participate in the care of Mr. Nino. Attestation To help prompt me to consider important information that might be impacting today's encounter and assessment, information from prior notes written by myself or my colleagues may have been "brought forward" into today's note. My signature on this note, however, is an attestation that I personally performed the exam, history, and/or decision-making noted today, and, unless otherwise indicated, the interactions with patient, family, and staff as well as the review of records all occurred today. I also attest that the listed assessment and stated plan reflect my best clinical judgment today based on the combination of historical information, prior notes, and today's exam/ interactions. When time spent is documented, it refers only to time spent today by the signer, or if indicated, combined time spent today by collaborating physician/nurse practitioner. Bay Lawler MD Sep 24, 2016 08:31 Bay Lawler MD Sep 24, 2016 08:31
[2016-09-24] MEDS: CHLORHEXIDINE 0.12% (ORAL KIT) 15 ML CUP MT SCH ×2 (08:58→20:00)
[2016-09-24] MEDS: SODIUM CHLORIDE 0.9% FLUSH 10 ML FLUSH IV FLUSH SCH ×2 (08:59→21:00)
[2016-09-24] MEDS: hydrALAZINE HCL 20 MG/ML VIAL IV PUSH SCH ×2 (09:00→21:00)
[2016-09-24] MEDS: DOCUSATE SODIUM 100 MG CAP PO SCH ×2 (09:01→21:38)
[2016-09-24] MEDS: FAMOTIDINE 20 MG/2 ML VIAL IV PUSH SCH ×2 (09:01→21:38)
[2016-09-24] MEDS: INSULIN DETEMIR 100 UNITS/ML VIAL SQ SCH ×2 (09:01→21:39)
[2016-09-24] MEDS: LACTULOSE SYRUP 20 GM/30 ML CUP PO SCH (09:01)
[2016-09-24] MEDS: BACITRACIN TOP OINT 15 GM TUBE TOPICAL SCH ×2 (09:02→21:00)
[2016-09-24] MEDS: ENOXAPARIN SODIUM 30 MG/0.3 ML SYRINGE SQ SCH ×2 (09:02→21:39)
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
--- NOTE | 2016-09-24 09:20 | MP ---
cc: SHREYA GALLEGOS MD DATE OF SURGERY 09/22/2016 PREOPERATIVE DIAGNOSIS Status post tracheostomy blue rhino and partial displacement of the tracheostomy cuff, leakage of the balloon. POSTOPERATIVE DIAGNOSIS Status post tracheostomy blue rhino and partial displacement of the tracheostomy cuff, leakage of the balloon. OPERATIVE PROCEDURE Replacement of the tracheostomy cannula over the guide. SURGEON Shreya Gallegos MD ANESTHESIA General ESTIMATED BLOOD LOSS None INDICATION FOR THE PROCEDURE This obese 61-year-old gentleman had a blue rhino tracheostomy two days ago and then today developed a cuff leak which can be either due to the leaking balloon or in this case a partial displaced tracheal cannula because the patient has a very large neck. Therefore decision made to take the patient to the OR and change the Wells cannula under direct and controlled conditions considering the fresh nature of the procedure and not developed mature tunnel. The patient was prepped and draped in the usual fashion. The endotracheal tube is placed by the anesthesiologist first from the top down to the level of the vocal cords so we could intubate the patient if we lost the airway. The inner cannula is now removed from the Shiley 8 old tracheostomy cannula and then a 6-11 glide is inserted. Over this, the old tube is removed and a new cannula is inserted. An 8 Shiley proximal extra long is used for the same purpose. This falls in place right away. The balloon is insufflated. CO2 obtained and then cannula sutured in place with 2-0 Prolene and secured with a band around the neck. The patient tolerated procedure well. Shreya NELSON /3:04 PM /9:14 AM
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
[2016-09-24] MEDS: FLUCONAZOLE 200 MG PREMIX BAG 100 ML IV SCH (16:06)
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
--- NOTE | 2016-09-24 19:30 | MG ---
cc: SALONI DE LEON M.D. Sex: M DATE OF STUDY: 09/24/2016 Test: 17-685 TECHNIQUE 17 channel EEG. DESCRIPTION The background rhythm reveals generalized slowing in the delta frequency roughly 3-4 Hz, amplitude is 28-30 microvolts. No lateralizing features are seen. No epileptiform discharges are identified. Hyperventilation was not done. Photic results in a poor driving response. INTERPRETATION Abnormal study consistent with a severe encephalopathic state. MD PRAVEENA Ca/CONSTANTINO /7:08 PM /7:18 PM
[2016-09-24] MEDS: MAGNESIUM HYDROXIDE SUSP 30 ML CUP PO SCH (21:00)
[2016-09-25] VITALS (11 sets, daily range): BP systolic 104–126; BP diastolic 30–51; PULSE 100–115; RESP 23–26; TEMP 98.5–101.1; O2SAT 94–96
[2016-09-25] MEDS: INSULIN ASPART SUPPLEMENTAL SCALE SQ SCH ×4 (01:21→12:00)
[2016-09-25] MEDS: CHLORHEXIDINE GLUCONATE 2 % 1 PACK (2 CLOTHS) TOP SCH (04:00)
[2016-09-25] MEDS: FREE WATER G-TUBE SCH ×3 (06:00→10:38)
[2016-09-25] MEDS: METOPROLOL TARTRATE 5 MG/5 ML VIAL IV PUSH SCH ×2 (06:00→14:00)
[2016-09-25] MEDS: RIFAXIMIN 200 MG TAB PO SCH ×2 (06:01→14:00)
[2016-09-25] MEDS: PIPERACIL-TAZO 2.25 GM PREMIX 50 ML IV SCH ×2 (06:02→14:04)
[2016-09-25] MEDS: ACETAMINOPHEN 650 MG/20.3 ML UDC G-TUBE PRN ×3 (06:27→08:00)
[2016-09-25 06:55] LABS: DRAW SITE ART LINE
[2016-09-25 06:56] LABS: CRITICAL VALUE YES
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
[2016-09-25 08:39] LABS: AUTOMATED NEUTROPHIL # 26.3 TH/MM3 (1.8-7.7); BASOPHIL # 0.1 TH/MM3 (0-0.2); BASOPHIL % 0.5 % (0.0-2.0); EOSINOPHIL # 0.3 TH/MM3 (0-0.4); HEMATOCRIT 25.9 % (39.0-51.0); HEMO FLAGS AUTO DIFF; LYMPHOCYTE # 1.2 TH/MM3 (1.0-4.8); MEAN CELL VOLUME 94.3 FL (80.0-100.0); MEAN CORPUSCULAR HEMOGLOBIN 30.6 PG (27.0-34.0); MEAN CORPUSCULAR HGB CONC 32.5 % (32.0-36.0); MONO % 11.1 % (0.0-8.0); NEUT % 83.4 % (16.0-70.0); PLATELET COUNT 381 TH/MM3 (150-450); RED BLOOD COUNT 2.75 MIL/MM3 (4.50-5.90); RED CELL DISTRIBUTION WIDTH 17.8 % (11.6-17.2); WHITE BLOOD COUNT 31.5 TH/MM3 (4.0-11.0)
[2016-09-25 08:48] LABS: INTERNATIONAL NORMALIZED RATIO 1.1 RATIO; PROTHROMBIN TIME - PATIENT 12.7 SEC (9.8-11.6)
[2016-09-25 08:53] LABS: ANION GAP 10 MEQ/L (5-15)
[2016-09-25 08:56] LABS: ALKALINE PHOSPHATASE 254 U/L (45-117); ALT (GPT) 43 U/L (12-78); AST (GOT) 66 U/L (15-37); BICARBONATE 25.1 MEQ/L (21.0-32.0); CHLORIDE 113 MEQ/L (98-107); MAGNESIUM 3.6 MG/DL (1.5-2.5); POTASSIUM 4.2 MEQ/L (3.5-5.1); SODIUM (NA) 148 MEQ/L (136-145); TOTAL BILIRUBIN ADULT 1.3 MG/DL (0.2-1.0)
[2016-09-25 09:00] LABS: BLOOD UREA NITROGEN 170 MG/DL (7-18)
[2016-09-25] MEDS: hydrALAZINE HCL 20 MG/ML VIAL IV PUSH SCH (09:00)
[2016-09-25] MEDS: BACITRACIN TOP OINT 15 GM TUBE TOPICAL SCH (09:00)
[2016-09-25] MEDS: SODIUM CHLORIDE 0.9% FLUSH 10 ML FLUSH IV FLUSH SCH (09:00)
[2016-09-25] MEDS: ENOXAPARIN SODIUM 30 MG/0.3 ML SYRINGE SQ SCH (09:00)
[2016-09-25] MEDS ORDERED: LACTULOSE SYRUP 20 GM/30 ML CUP PO SCH (09:00)
[2016-09-25] MEDS: DOCUSATE SODIUM 100 MG CAP PO SCH (09:00)
--- NOTE | 2016-09-25 09:06 | RADRPT ---
EXAM DATE/TIME: 09/25/2016 08:08 [facility] COMPARISON: CHEST SINGLE AP, September 24, 2016, 4:26. INDICATIONS : Respiratory disease. Pneumothorax. MEDICAL HISTORY : Cardiovascular disease. Diabetes mellitus type II. Cirrhosis. Hypertension. SURGICAL HISTORY : Splenectomy. ENCOUNTER: Subsequent ACUITY: 2 days PAIN SCORE: Non-responsive. LOCATION: Bilateral chest FINDINGS: Trache tube, nasogastric tube are in good position. Heart remains enlarged. Mild interstitial edema is present. There is no pneumothorax. CONCLUSION: 1. Increasing bibasilar parenchymal changes. 2. Increasing interstitial edema. Damir Sarmiento MD FACR on September 25, 2016 at 8:54 Board Certified Radiologist. This report was verified electronically.
[2016-09-25 09:07] LABS: BLOOD GAS BASE EXCESS -3.1 mmol/L (-2-2); BLOOD GAS CARBOXYHEMOGLOBIN 1.1 % (0-4); BLOOD GAS HCO3 22 mmol/L (22-26); BLOOD GAS METHEMOGLOBIN 0.8 % (0-2); BLOOD GAS O2 HGB SATURATION 96 % (90-100); BLOOD GAS OXYGEN CONTENT 16.5 Vol % (12.0-20.0); BLOOD GAS PCO2 45 mmHg (38-42); BLOOD GAS PO2 107 mmHg (61-120); BLOOD GAS TOTAL HGB 12.2 G/DL (12.0-16.0); CRITICAL VALUE NO; FIO2 75 %; OXYGEN DEVICE VENTILATOR; TEMP CORR TO 98.6
[2016-09-25 09:08] LABS: DRAW SITE ART LINE; STAT YES
[2016-09-25 09:14] LABS: BANDS 14 % (0-6); EOSINOPHILS 1 % (0-4); METAMYELOCYTES 3 % (0-1); NEUTROPHIL # MANUAL DIFF 26.5 TH/MM3 (1.8-7.7); POLYS (SEG NEUTROPHILS) 67 % (16-70); WBC DIFF SAMPLE 100
[2016-09-25 09:15] LABS: PLATELET ESTIMATE SMEAR NORMAL (NORMAL); PLATELET MORPHOLOGY ENLARGED (NORMAL); SCAN/DIFF FINAL DIFF MANUAL
[2016-09-25] MEDS ORDERED: INSULIN DETEMIR 100 UNITS/ML VIAL SQ SCH ×2 (09:30)
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
[2016-09-25] MEDS: SODIUM CHLOR 0.45% 1000 ML INJ 1,000 ML IV SCH ×2 (10:37)
[2016-09-25] MEDS: CHLORHEXIDINE 0.12% (ORAL KIT) 15 ML CUP MT SCH (10:38)
[2016-09-25] MEDS: FAMOTIDINE 20 MG/2 ML VIAL IV PUSH SCH (10:53)
--- NOTE | 2016-09-25 11:05 | HHI.NSPN ---
(Tomi Mckeon) Note Status Status: Progress Note (Tomi Mckeon) Interval History Interval History Patient still with gulping respirations and non-responsive. Family made DNR yesterday. Daughter to come in and family meeting planned. (Tomi Mckeon ) Labs, Micro, & Vital Signs Results Allergies Coded Allergies Type Severity Reaction Last Updated Verified No Known Allergies 09/11/16 No Recent Impressions Chest X-Ray 09/24/16 0600 Signed Impressions: Service Date/Time: Saturday, September 24, 2016 04:26 - CONCLUSION: No significant change in the right perihilar infiltrate. Christiano Trotter MD Chest CT 09/24/16 0000 Signed Impressions: Service Date/Time: Saturday, September 24, 2016 11:19 - CONCLUSION: 1. Small left anterior basilar pneumothorax remains which is mildly decreased in size from the prior CT. 2. Dense consolidation in both posterior lower lobes with air bronchograms. 3. New area of groundglass opacity in the anterior right upper lobe which could represent an acute pneumonia. 4. Small bilateral pleural effusions. 5. Please see abdomen CT for further details on the abdominal findings. Jamshid Pérez MD Abdomen/Pelvis CT 09/24/16 0000 Signed Impressions: Service Date/Time: Saturday, September 24, 2016 11:12 - CONCLUSION: 1. Small left anterior basilar pneumothorax. 2. Consolidation in both posterior lung bases with small effusions. 3. Status post splenectomy with large fluid collection in the left upper quadrant. A small to moderate amount of ascitic fluid is also noted throughout the abdomen and pelvis. 4. Nonspecific nonobstructive bowel gas pattern. 5. Multiple left-sided rib fractures again noted. Jamshid Pérez MD ///// 06:00 18:00 06:00 18:00 06:00 18:00 Intake Total 4401 ml 1895 ml 2440 ml 893 ml 3522 ml Output Total 1225 ml 600 ml 1100 ml 500 ml 775 ml Balance 3176 ml 1295 ml 1340 ml 393 ml 2747 ml IV Total 3611 ml 1628 ml 1521 ml 802 ml 2300 ml Tube Feeding 390 ml 267 ml 399 ml 91 ml 502 ml Other 400 ml 520 ml 720 ml Output Urine Total 1225 ml 600 ml 1100 ml 500 ml 725 ml Stool Total 50 ml # Bowel Movements 0 2 2 1 Laboratory Tests Test 09/22/16 09/23/16 09/23/16 09/23/16 11:15 02:00 06:27 09:45 Urine Color YELLOW Urine Turbidity HAZY Urine pH 5.5 Urine Specific [place] 1.022 Urine Protein TRACE mg/dL Urine Glucose (UA) NEG mg/dL Urine Ketones NEG mg/dL Urine Occult Blood LARGE Urine Nitrite NEG Urine Bilirubin NEG Urine Urobilinogen LESS THAN 2.0 MG/DL Urine Leukocyte Esterase LARGE Urine RBC /hpf Urine WBC 45 /hpf Urine WBC Clumps RARE Urine Squamous Epithelial <1 /hpf Cells Urine Transitional Epithelial <1 /hpf Cells Urine Bacteria OCC /hpf Urine Yeast with Hyphae OCC Microscopic Urinalysis Comment CATH-CULTURE IND Urine Eosinophils RARE /HPF Urine Osmolality 584 MOSM/KG Urine Random Creatinine 94.3 MG/DL Urine Random Sodium 8 MEQ/L Nasal Screen MRSA (PCR) MRSA NOT DETECTED White Blood Count 32.5 TH/MM3 Red Blood Count 2.95 MIL/MM3 Hemoglobin 8.8 GM/DL Hematocrit 27.4 % Mean Corpuscular Volume 92.8 FL Mean Corpuscular Hemoglobin 29.9 PG Mean Corpuscular Hemoglobin 32.2 % Concent Red Cell Distribution Width 17.0 % Platelet Count 385 TH/MM3 Mean Platelet Volume 9.1 FL Neutrophils (%) (Auto) % Lymphocytes (%) (Auto) % Monocytes (%) (Auto) % Eosinophils (%) (Auto) % Basophils (%) (Auto) % Neutrophils # (Auto) TH/MM3 Lymphocytes # (Auto) TH/MM3 Monocytes # (Auto) TH/MM3 Eosinophils # (Auto) TH/MM3 Basophils # (Auto) TH/MM3 CBC Comment AUTO DIFF Differential Total Cells 100 Counted Neutrophils % (Manual) 86 % Band Neutrophils % 4 % Lymphocytes % 3 % Monocytes % 6 % Neutrophils # (Manual) 29.6 TH/MM3 Metamyelocytes 1 % Differential Comment FINAL DIFF MANUAL Platelet Estimate HIGH Platelet Morphology Comment NORMAL Basophilic Stippling FAINT Sodium Level 157 MEQ/L Potassium Level 4.0 MEQ/L Chloride Level 122 MEQ/L Carbon Dioxide Level 26.7 MEQ/L Anion Gap 8 MEQ/L Blood Urea Nitrogen 137 MG/DL Creatinine 2.19 MG/DL Estimat Glomerular Filtration 31 ML/MIN Rate Random Glucose 206 MG/DL Calcium Level 7.6 MG/DL Total Bilirubin 1.4 MG/DL Aspartate Amino Transf 42 U/L (AST/SGOT) Alanine Aminotransferase 34 U/L (ALT/SGPT) Alkaline Phosphatase 156 U/L Total Protein 5.4 GM/DL Albumin 1.9 GM/DL Blood Gas Puncture Site JOSE Blood Gas Patient Temperature 98.6 Blood Gas HCO3 23 mmol/L Blood Gas Base Excess -1.2 mmol/L Blood Gas Oxygen Saturation 96 % Arterial Blood pH 7.37 Arterial Blood Partial 42 mmHg Pressure CO2 Arterial Blood Partial 125 mmHg Pressure O2 Arterial Blood Oxygen Content 12.9 Vol % Arterial Blood 1.3 % Carboxyhemoglobin Arterial Blood Methemoglobin 1.1 % Blood Gas Hemoglobin 9.3 G/DL Oxygen Delivery Device VENTILATOR Blood Gas Ventilator Setting SEE COMMENT Blood Gas Inspired Oxygen 100 % Ammonia 84 MCMOL/L Test 09/23/16 09/24/16 09/24/16 09/24/16 12:30 04:55 05:08 15:40 Random Vancomycin Level 19.6 COMMENT White Blood Count 35.7 TH/MM3 Red Blood Count 3.07 MIL/MM3 Hemoglobin 9.0 GM/DL Hematocrit 28.8 % Mean Corpuscular Volume 94.0 FL Mean Corpuscular Hemoglobin 29.4 PG Mean Corpuscular Hemoglobin 31.3 % Concent Red Cell Distribution Width 17.1 % Platelet Count 389 TH/MM3 Mean Platelet Volume 10.2 FL Neutrophils (%) (Auto) 82.9 % Lymphocytes (%) (Auto) 7.1 % Monocytes (%) (Auto) 9.5 % Eosinophils (%) (Auto) 0.2 % Basophils (%) (Auto) 0.3 % Neutrophils # (Auto) 29.5 TH/MM3 Lymphocytes # (Auto) 2.5 TH/MM3 Monocytes # (Auto) 3.4 TH/MM3 Eosinophils # (Auto) 0.1 TH/MM3 Basophils # (Auto) 0.1 TH/MM3 CBC Comment AUTO DIFF Differential Total Cells 100 Counted Neutrophils % (Manual) 71 % Band Neutrophils % 12 % Lymphocytes % 5 % Monocytes % 9 % Neutrophils # (Manual) 30.7 TH/MM3 Myelocytes 3 % Nucleated Red Blood Cells 1 /100 WBC Differential Comment FINAL DIFF MANUAL Platelet Estimate NORMAL Platelet Morphology Comment NORMAL Sodium Level 153 MEQ/L Potassium Level 4.1 MEQ/L Chloride Level 119 MEQ/L Carbon Dioxide Level 24.5 MEQ/L Anion Gap 10 MEQ/L Blood Urea Nitrogen 144 MG/DL Creatinine 2.25 MG/DL Estimat Glomerular Filtration 30 ML/MIN Rate Random Glucose 177 MG/DL Calcium Level 8.0 MG/DL Total Bilirubin 1.4 MG/DL Aspartate Amino Transf 66 U/L (AST/SGOT) Alanine Aminotransferase 42 U/L (ALT/SGPT) Alkaline Phosphatase 202 U/L Total Protein 5.8 GM/DL Albumin 2.0 GM/DL Blood Gas Puncture Site ART LINE Blood Gas Patient Temperature 98.6 Blood Gas HCO3 23 mmol/L Blood Gas Base Excess -1.3 mmol/L Blood Gas Oxygen Saturation 91 % Arterial Blood pH 7.42 Arterial Blood Partial 35 mmHg Pressure CO2 Arterial Blood Partial 67 mmHg Pressure O2 Arterial Blood Oxygen Content 11.9 Vol % Arterial Blood 1.5 % Carboxyhemoglobin Arterial Blood Methemoglobin 1.0 % Blood Gas Hemoglobin 9.2 G/DL Oxygen Delivery Device VENTILATOR Blood Gas Ventilator Setting BILEVEL Blood Gas Inspired Oxygen 80 % Ammonia 93 MCMOL/L Test 09/25/16 09/25/16 09/25/16 07:48 08:12 08:59 Blood Gas Puncture Site ART LINE Blood Gas Patient Temperature 98.6 Blood Gas HCO3 22 mmol/L Blood Gas Base Excess -3.1 mmol/L Blood Gas Oxygen Saturation 96 % Arterial Blood pH 7.31 Arterial Blood Partial 45 mmHg Pressure CO2 Arterial Blood Partial 107 mmHg Pressure O2 Arterial Blood Oxygen Content 16.5 Vol % Arterial Blood 1.1 % Carboxyhemoglobin Arterial Blood Methemoglobin 0.8 % Blood Gas Hemoglobin 12.2 G/DL Oxygen Delivery Device VENTILATOR Blood Gas Ventilator Setting Blood Gas Inspired Oxygen 75 % White Blood Count 31.5 TH/MM3 Red Blood Count 2.75 MIL/MM3 Hemoglobin 8.4 GM/DL Hematocrit 25.9 % Mean Corpuscular Volume 94.3 FL Mean Corpuscular Hemoglobin 30.6 PG Mean Corpuscular Hemoglobin 32.5 % Concent Red Cell Distribution Width 17.8 % Platelet Count 381 TH/MM3 Mean Platelet Volume 10.6 FL Neutrophils (%) (Auto) 83.4 % Lymphocytes (%) (Auto) 4.0 % Monocytes (%) (Auto) 11.1 % Eosinophils (%) (Auto) 1.0 % Basophils (%) (Auto) 0.5 % Neutrophils # (Auto) 26.3 TH/MM3 Lymphocytes # (Auto) 1.2 TH/MM3 Monocytes # (Auto) 3.5 TH/MM3 Eosinophils # (Auto) 0.3 TH/MM3 Basophils # (Auto) 0.1 TH/MM3 CBC Comment AUTO DIFF Differential Total Cells 100 Counted Neutrophils % (Manual) 67 % Band Neutrophils % 14 % Lymphocytes % 1 % Monocytes % 14 % Eosinophils % 1 % Neutrophils # (Manual) 26.5 TH/MM3 Metamyelocytes 3 % Differential Comment FINAL DIFF MANUAL Platelet Estimate NORMAL Platelet Morphology Comment ENLARGED Prothrombin Time 12.7 SEC Prothromb Time International 1.1 RATIO Ratio Sodium Level 148 MEQ/L Potassium Level 4.2 MEQ/L Chloride Level 113 MEQ/L Carbon Dioxide Level 25.1 MEQ/L Anion Gap 10 MEQ/L Blood Urea Nitrogen 170 MG/DL Creatinine 2.64 MG/DL Random Glucose 186 MG/DL Calcium Level 7.9 MG/DL Phosphorus Level 5.9 MG/DL Magnesium Level 3.6 MG/DL Total Bilirubin 1.3 MG/DL Aspartate Amino Transf 66 U/L (AST/SGOT) Alanine Aminotransferase 43 U/L (ALT/SGPT) Alkaline Phosphatase 254 U/L Total Protein 5.6 GM/DL Albumin 1.7 GM/DL Lactic Acid Level 1.5 mmol/L Constitutional Vital Signs Date Time Temp Pulse Resp B/P Pulse Ox O2 Delivery O2 Flow Rate FiO2 09/25/16 08:00 100 09/25/16 08:00 98.6 100 23 107/51 96 09/25/16 08:00 75 09/25/16 07:37 95 75 09/25/16 06:00 110 09/25/16 04:02 96 75 09/25/16 04:00 101.1 114 25 104/30 95 09/25/16 04:00 114 09/25/16 04:00 75 09/25/16 02:00 110 09/25/16 01:04 95 75 09/25/16 00:00 75 09/25/16 00:00 112 09/25/16 00:00 99.9 115 24 104/31 94 09/24/16 22:00 110 09/24/16 20:20 95 75 09/24/16 20:00 99.9 105 27 104/41 94 09/24/16 20:00 105 09/24/16 20:00 75 09/24/16 18:00 103 09/24/16 18:00 99 09/24/16 16:50 94 75 09/24/16 16:00 114 09/24/16 16:00 99.7 114 26 105/57 94 09/24/16 16:00 75 09/24/16 14:00 112 09/24/16 12:49 92 75 09/24/16 12:00 98.6 114 20 124/43 93 09/24/16 12:00 75 09/24/16 12:00 114 09/24/16 11:28 96 100 09/25/16 07:00 Intake Total 4415 ml Output Total 1275 ml Balance 3140 ml (Tomi Mckeon) Review of Systems/Exam ROS Unable to obtain ROS due to patient's mental status and sedation. Exam Patient off sedation. Respirations slightly coarse, mildly laboured with persistent shallow, gasping- type respiration, trach in place. RRR w/o M/G/R but fast, monitor is ST w/o any ectopy noted. Abdomen distended, bowel sounds not appreciated. No eye opening, pupils round & react to light right 2mm & left 3 mm. No gag reflex. Face is symmetrical. No response to noxious stimuli. (Tomi Mckeon) Medications Current Medications Current Medications Medications (Trade) Dose Ordered Sig/Wally Route Start Time Stop Time Status Last Admin (NS Flush) 2 ml UNSCH PRN IV FLUSH 09/11/16 20:00 (NS Flush) 2 ml BID IV FLUSH 09/11/16 21:00 09/24/16 21:00 Miscellaneous Information 1 Q361D XX 09/11/16 20:00 09/11/16 22:55 (Chlorhexidine 2% Cloth) Taper DAILY@04 TOP 09/12/16 04:00 09/08/17 03:59 09/23/16 04:00 (Chlorhexidine 2% Cloth) 3 pack UNSCH PRN TOP 09/11/16 20:00 (Brethine Inj) 1 mg UNSCH PRN SQ 09/11/16 20:45 Chlorhexidine Gluconate 15 ml 15 ml BID@08,20 MT 09/12/16 08:00 09/25/16 10:38 (Diprivan 1000 Mg/100ml Inj) 100 ml @ 0 mls/hr TITRATE IV 09/11/16 20:45 09/21/16 04:41 (Baciguent Oint) 1 applic Q12HR TOPICAL 09/12/16 12:00 09/24/16 21:00 (Free Water) 200 ml Q6HR G-TUBE 09/17/16 12:00 09/25/16 10:38 (Colace) 100 mg BID PO 09/19/16 21:00 09/24/16 21:38 (Milk Of Magnesia Liq) 30 ml HS PO 09/19/16 21:00 09/21/16 20:06 (Trandate Inj) 20 mg Q2H PRN IV 09/21/16 11:00 (D50w (Vial) Inj) 25 ml UNSCH PRN IV PUSH 09/22/16 09:15 (Glucagon Inj) 1 mg UNSCH PRN OTHER 09/22/16 09:15 Insulin Aspart 1 1 Q4HR SQ 09/22/16 12:00 09/25/16 08:00 (1/2 NS 1000 ml Inj) 1,000 ml @ 100 mls/hr Q10H IV 09/22/16 12:00 09/25/16 10:37 (Apresoline Inj) 10 mg BID IV PUSH 09/22/16 21:00 09/24/16 09:00 (Lopressor Inj) 5 mg Q8HR IV PUSH 09/22/16 14:00 09/24/16 17:45 (Lovenox Inj) 30 mg BID SQ 09/23/16 10:00 09/24/16 21:39 Famotidine 10 mg 10 mg Q12HR IV PUSH 09/23/16 21:00 09/25/16 10:53 (Diflucan 200 Mg Premix Bag) 100 ml @ 100 mls/hr Q24H IV 09/23/16 16:00 09/24/16 16:06 Rifaximin 400 mg 400 mg Q8HR PO 09/23/16 17:00 09/28/16 16:59 4/26/17 06:01 (Zosyn 2.25 Gm Premix) 50 ml @ 100 mls/hr Q8H IV 09/23/16 23:00 09/25/16 06:02 (Tylenol 650 Mg/ 20 ml Liq) 650 mg Q6H PRN G-TUBE 09/25/16 06:00 09/25/16 07:27 (Lactulose Liq) 30 ml BID PO 09/25/16 09:00 09/25/16 10:37 (Levemir Inj) 25 units Q12HR SQ 09/25/16 09:30 (Tomi Mckeon) Medical Decision Making MDM Remarks Traumatic brain injury Stable contusion w/o mass effect per CT 09/19 EEG of suggestive of moderate to severe diffuse cerebral function disturbance, no epileptiform features present Ammonia level continues to rise No change in neurological status, probable encephalopathy (Tomi Mckeon ) Plan Plan Remarks Continue close monitoring of neuro status & vital signs Critical care management per Logistics Vice President & Trauma Wean sedation & ventilation per Surgical Logistics Vice President & Trauma Concur with Neurology consult Concur with Palliative Care consult (Tomi Mckeon) Attending Statement At my attestation Patient remains essentially unresponsive. Agonal-type respirations Discussed with nursing staff this morning Palliative care following Family to make further decisions regarding care today. Prognosis for meaningful recovery extremely poor (Mamadou Cottrell MD) Tomi Mckeon Sep 25, 2016 11:05 Mamadou Cottrell MD Sep 25, 2016 19:00
--- NOTE | 2016-09-25 11:37 | HHI.PR ---
Neuropsych Progress Notes/Response to Tx Time with Patient: 15 minutes Premorbid psychological status Premorbid Cognitive, Emotional and Behavioral Status: Unable to Assess. There is no family present to request this information. Behavioral Reactions of Patient and Family/Support System: Unable to Assess. The patients family is not present. Emotional/Behavioral Status of Patient and Family/Support System: Unable to Assess. Pertinent issues, if appropriate to this patients clinical care, are described in detail above. Maximizing acute care outcome It is recommended that the patient be monitored for emergent behavioral impulsivity as the medical condition evolves. This patients neuropathological challenges may limit their rehabilitation potential going forward, and these challenges will require specialized therapeutic skills to maximize outcome. Anticipated Problems Ongoing areas of concern will include behavioral impulsivity, lack of insight and judgment, which is expected to improve with time and treatment. Treatment Plan This clinician will continue to follow with you throughout the course of this patients acute care treatment, and I will be available to meet with the patient s family/support system to facilitate their understanding and the ongoing care of their family member. The goals of neuropsychological intervention shall be both educational and supportive to the family/support system as is deemed clinically appropriate. [facility] Level: I:No response-total assistance Impression The patient suffered a mild to moderate brain injury secondary to the RESIDENTIAL and has experienced secondary complications to his neurotrauma due to his other injuries. He is expected to have residual neurocognitive deficits. Diagnosis: (1) Major neurocognitive disorder as late effect of traumatic brain injury with behavioral disturbance Status: Acute Progress Note Narrative Ongoing follow-up of patient seen during daily trauma rounds. This is day 14 post injury. There is no neurological improvement, and trauma team consensus is that he has no chance of a meaningful recovery. The patient is now DNR, and discussions with family concerning withdrawal of care will be taking place later today. I will continue to follow. Daniel Meade PhD Sep 25, 2016 11:37 am
[2016-09-25] MEDS ORDERED: HYDROmorphone HCL PF 1 MG/ML VIAL IV PRN ×2 (11:45)
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
[2016-09-25] MEDS ORDERED: HYOSCYAMINE 0.125 MG TAB PO/SL ONE (15:45)
[2016-09-25] MEDS ORDERED: LORazepam 2 MG/ML VIAL IV ONE ×2 (15:45→16:00)
[2016-09-25] MEDS ORDERED: HYDROmorphone HCL PF 2 MG/ML VIAL IV ONE (15:45)
[2016-09-25] MEDS ORDERED: HYDROmorphone HCL PF 1 MG/ML VIAL IV ONE (16:00)
[2016-09-25] MEDS ORDERED: SODIUM CHLORIDE 0.9% FLUSH 10 ML FLUSH IVF PRN (16:00)
[2016-09-25] MEDS ORDERED: BISACODYL 10 MG SUPP RECTAL PRN (16:15)
[2016-09-25] MEDS ORDERED: ACETAMINOPHEN 650 MG SUPP RECTAL PRN (16:15)
[2016-09-25] MEDS ORDERED: LORazepam 2 MG/ML VIAL IVS PRN (16:15)
[2016-09-25] MEDS ORDERED: LORazepam 2 MG/ML VIAL IV PRN ×2 (16:15)
[2016-09-25] MEDS ORDERED: FUROSEMIDE 20 MG/2 ML VIAL IV PRN (16:15)
[2016-09-25] MEDS ORDERED: HYDROmorphone HCL PF 2 MG/ML VIAL IV PRN ×2 (17:00)
[2016-09-25] MEDS ORDERED: HYDROmorphone HCL PF 1 MG/ML VIAL IV SCH (20:00)
[2016-09-25] MEDS ORDERED: LORazepam 2 MG/ML VIAL IV SCH (20:00)
[2016-09-25] MEDS ORDERED: SODIUM CHLORIDE 0.9% FLUSH 10 ML FLUSH IVF SCH (21:00)
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
== END 2016-09-25 18:43 | disposition expired | DRG 3 ==
LOC: NEPI 16:05 → EDBD 16:31 → NEDA 16:31 → N03B 19:33
PROVIDERS: ADMIT Family Medicine; ATTEND Family Medicine
PROC: 5A1955Z Respiratory Ventilation, Greater than 96 Consecutive Hours (ICD-10-PCS; 2016-09-11)
PROC: 0W3G0ZZ Control Bleeding in Peritoneal Cavity, Open Approach (ICD-10-PCS; 2016-09-11)
PROC: 30233K1 Transfusion of Nonautologous Frozen Plasma into Peripheral Vein, Percutaneous Approach (ICD-10-PCS; 2016-09-11)
PROC: 30233N1 Transfusion of Nonautologous Red Blood Cells into Peripheral Vein, Percutaneous Approach (ICD-10-PCS; 2016-09-11)
PROC: 30233R1 Transfusion of Nonautologous Platelets into Peripheral Vein, Percutaneous Approach (ICD-10-PCS; 2016-09-11)
PROC: 30233M1 Transfusion of Nonautologous Plasma Cryoprecipitate into Peripheral Vein, Percutaneous Approach (ICD-10-PCS; 2016-09-11)
PROC: 02HV33Z Insertion of Infusion Device into Superior Vena Cava, Percutaneous Approach (ICD-10-PCS; 2016-09-11)
PROC: 0W9B30Z Drainage of Left Pleural Cavity with Drainage Device, Percutaneous Approach (ICD-10-PCS; 2016-09-11)
PROC: 0BH17EZ Insertion of Endotracheal Airway into Trachea, Via Natural or Artificial Opening (ICD-10-PCS; 2016-09-11)
PROC: 07TP0ZZ Resection of Spleen, Open Approach (ICD-10-PCS; principal; 2016-09-11 17:14)
PROC: 0DN80ZZ Release Small Intestine, Open Approach (ICD-10-PCS; 2016-09-13)
PROC: 0JD80ZZ Extraction of Abdomen Subcutaneous Tissue and Fascia, Open Approach (ICD-10-PCS; 2016-09-13)
PROC: 0WQF0ZZ Repair Abdominal Wall, Open Approach (ICD-10-PCS; 2016-09-16)
PROC: 0B113F4 Bypass Trachea to Cutaneous with Tracheostomy Device, Percutaneous Approach (ICD-10-PCS; 2016-09-20)
PROC: 0BJ08ZZ Inspection of Tracheobronchial Tree, Via Natural or Artificial Opening Endoscopic (ICD-10-PCS; 2016-09-20)
PROC: 0B21XFZ Change Tracheostomy Device in Trachea, External Approach (ICD-10-PCS; 2016-09-22)
DX: S36.032A Major laceration of spleen, initial encounter (principal); D65 Disseminated intravascular coagulation [defibrination syndrome]; G93.6 Cerebral edema; K76.7 Hepatorenal syndrome; Z51.5 Encounter for palliative care; S27.2XXA Traumatic hemopneumothorax, initial encounter; G93.41 Metabolic encephalopathy; J15.0 Pneumonia due to Klebsiella pneumoniae; J90 Pleural effusion, not elsewhere classified; S06.2X9A Diffuse traumatic brain injury with loss of consciousness of unspecified duration, initial encounter; E87.2 Acidosis; T79.4XXA Traumatic shock, initial encounter; S22.5XXA Flail chest, initial encounter for closed fracture; J96.01 Acute respiratory failure with hypoxia; G93.1 Anoxic brain damage, not elsewhere classified; E44.0 Moderate protein-calorie malnutrition; Z68.43 Body mass index [BMI] 50.0-59.9, adult; S35.8X9A Unspecified injury of other blood vessels at abdomen, lower back and pelvis level, initial encounter; D62 Acute posthemorrhagic anemia; S27.322A Contusion of lung, bilateral, initial encounter; N17.9 Acute kidney failure, unspecified; E87.0 Hyperosmolality and hypernatremia; J44.0 Chronic obstructive pulmonary disease with (acute) lower respiratory infection; J95.03 Malfunction of tracheostomy stoma; J98.11 Atelectasis; E66.01 Morbid (severe) obesity due to excess calories; E11.65 Type 2 diabetes mellitus with hyperglycemia; S80.01XA Contusion of right knee, initial encounter; K74.60 Unspecified cirrhosis of liver; S80.02XA Contusion of left knee, initial encounter; S42.018A Nondisplaced fracture of sternal end of left clavicle, initial encounter for closed fracture; E87.70 Fluid overload, unspecified; I10 Essential (primary) hypertension; R16.1 Splenomegaly, not elsewhere classified; I25.10 Atherosclerotic heart disease of native coronary artery without angina pectoris; E86.0 Dehydration; E78.5 Hyperlipidemia, unspecified; E87.6 Hypokalemia; R21 Rash and other nonspecific skin eruption; K72.90 Hepatic failure, unspecified without coma; I25.2 Old myocardial infarction; G89.29 Other chronic pain; M17.12 Unilateral primary osteoarthritis, left knee; F17.210 Nicotine dependence, cigarettes, uncomplicated; V29.9XXA Motorcycle rider (driver) (passenger) injured in unspecified traffic accident, initial encounter; Y95 Nosocomial condition; Z66 Do not resuscitate
CPT/HCPCS: 31500; 32551; 36430; 36556; 51702; 70450; 71010; 71250; 71260; 72125; 72128; 72131; 72170; 73560; 74000; 74176; 74177; 76775; 76937; 80048; 80053; 80074; 80202; 80307; 81001; 82140; 82435; 82565; 82570; 82805; 82947; 82948; 83605; 83735; 83935; 84100; 84132; 84295; 84300; 84520; 85007; 85025; 85027; 85384; 85610; 85730; 86403; 86850; 86900; 86901; 86920; 86927; 86965; 87040; 87070; 87077; 87086; 87186; 87205; 87641; 88305; 93306; 94002; 94003; 94640; 94664; 95819; 96361; 96374; 96375; 99291; A0431-QM-SH; A0436-QM-SH; A7521; G0390; J0171; J0330; J0360; J1170; J1450; J1650; J1815; J1817; J2060; J2185; J2250; J2370; J2543; J3010; J3370; J3480; J7030; J7040; J7050; J7060; J7120; P9016; P9017; P9035; P9045; P9047; Q9967